=== PATIENT | female | born 1950 | race Caucasian/White ===

== ENCOUNTER → 2020-03-14 12:07 | Outpatient (CLI) | payer MEDICARE, SELFPAY ==
[2020-03-14 13:59] LABS: Coronavirus 19 IgG Antibody Negative (Negative); Coronavirus 19 IgM Antibody Negative (Negative)
== END ==
PROVIDERS: Visit Provider Internal Medicine Gastroenterology
DX: Z01.818 Encounter for other preprocedural examination (principal)
CPT/HCPCS: 36415; 86328

== ENCOUNTER 2020-03-15 09:17 | Day surgery (SDC) | payer MEDICARE, SELFPAY ==
[2020-03-12 13:18] VITALS: BMI 26.5
[2020-03-15] VITALS (7 sets, daily range): BP systolic 85–154; BP diastolic 49–104; PULSE 86–101; RESP 16–18; TEMP 36.1–36.6; O2SAT 92–97
--- NOTE | 2020-03-15 11:13 | HMH.ANESCL ---
[facility] Anesthesia Checklist - Patient Identification Patient Identification: Arm Band - Structural Data Admitted From: Home Planned Operative Procedure/s: colonoscopy Consent for Planned Operative Procedure(s) Verified: Yes Verified Documents: Surgical Consent, History and Physical - NPO Status Verified Time NPO: 00:00 - Additional verifications Anesthesia Reactions: No - Airway Assessment C-Spine Mobility Assessed: Yes (mp2) TMJ Mobility Assessed: Yes Dentition: Edentulous - Neurological Assessment Level of Consciousness: Awake, Alert - Anesthesia Plan Anesthesia Risk discussed: Yes Anesthesia Plan: Verified ASA Class: III Anesthesia Type: MAC [facility] History I have reviewed the patient's past medical history: Yes Medical History: Reports:: Cancer (skin), Congestive Heart Failure, Hypertension, Lung Disease (johnny) Denies:: Diabetes Mellitus Type 1, Diabetes Mellitus Type 2, Internal Pacemaker, MRSA, Seizures *Have you ever received a pneumonia vaccine?: Yes *Have you received a flu vaccine this season?: Yes Anesthesia experience/problems:: nac Laterality Cases: Bilateral: Tonsillectomy Other Surgeries: Yes: Cholecystectomy, , Hysterectomy-Total, Thyroidectomy. No: Pacemaker Amputation: No Fractures: Yes - *Social History Last grade of school completed: Advanced degree Smoking Status: Current every day smoker Tobacco Type: cigarettes # Packs/Day (cigarettes): 1 Alcohol Intake: never Substance Use Type: denies use *Occupational Status:: disabled Housing: house Household Members: family *Travel in the last 8 weeks: None Family Hx:: No significant family history
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
== END 2020-03-15 12:50 | disposition home or self-care (01) ==
LOC: OUTP 09:21
PROVIDERS: PCP Family Medicine; Visit Provider Internal Medicine Gastroenterology
PROC: 0DJD8ZZ Inspection of Lower Intestinal Tract, Via Natural or Artificial Opening Endoscopic (ICD-10-PCS; CPT 45378; principal; 2020-03-15 10:30)
DX: Z12.11 Encounter for screening for malignant neoplasm of colon (principal); K63.5 Polyp of colon; K57.30 Diverticulosis of large intestine without perforation or abscess without bleeding; K64.0 First degree hemorrhoids; Z83.71 Family history of colonic polyps; Z85.828 Personal history of other malignant neoplasm of skin; I11.0 Hypertensive heart disease with heart failure; G47.33 Obstructive sleep apnea (adult) (pediatric); Z90.710 Acquired absence of both cervix and uterus; E89.0 Postprocedural hypothyroidism; Z90.49 Acquired absence of other specified parts of digestive tract; Z72.0 Tobacco use
CPT/HCPCS: 45385; 88305

== ENCOUNTER → 2021-04-11 06:44 | Outpatient (CLI) | payer MEDICARE, SELFPAY ==
--- NOTE | 2021-04-11 06:46 | CA_ITS ---
APPROVED REPORT EXAM: Comprehensive 2D, Doppler, and color-flow Echocardiogram Restaurant Inspector: Donna Greene RT(R) Ht: 5 ft 10 in Wt: 170lbs BSA: 1.95 BP: 191/85 mmHg Indications: CP, JEFFREY, HTN, HLD, smoker, SOB, pul HTN 2D Dimensions LVOT 2.07 cm (M/F) 1.5-2.5 LVEF (Trotter's) 60.20 % F: 54 - 74 LV Volume 97.90 mL F: 46 - 106 LV Volume Index 50.46 mL/m2 F: 29 - 61 LA Volume 59.80 mL LA Volume Index 30.82 mL/m2 (M/F) 16-34 M-Mode Dimensions RVDd 2.42 cm (0.9-2.6) LA Diam 4.15 cm (1.9-4.0) LVDd 3.18 cm (3.5-5.7) Ao Diam 3.35 cm (2.0-3.7) LVDs 2.34 cm (3.5-5.7) IVSd 1.02 cm (0.6-1.1) PWd 0.72 cm (0.6-1.1) EF (Teich) 53.10% FS 26.40% EDV (Teich) 40.30 mL ESV (Teich) 18.90 mL LV Diastology E Decel Time 277.00 (160-240 msec) E/A Ratio 0.9 MED E' 12.40 (< 7 cm/sec) E'/MED E' Ratio 7.94 (>14) LAT E' 10.90 (<10 cm/sec) E/LAT E' Ratio 9.03 (>14) Mitral Valve MV E Max Hammad. 98.00 (40-130 cm/s) MV A Velocity 106.00 (40-130 cm/s) E/A Ratio 0.93 MV Decel. Time 277.00 (160-240 ms) MV PHT 81.00 ms Tricuspid Valve TR P. Velocity 318.00 cm/s RAP Estimate 10.00 mmHg RVSP 50.50 mmHg Left Ventricle Left atrium is mildly enlarged, left ventricle is normal size, mild concentric left ventricular hypertrophy, visually estimated ejection fraction 55% with no regional wall motion abnormality, diastolic parameters are inconclusive. Right Ventricle Right atrium and right ventricle mildly enlarged with normal contractility. Aortic Valve Aortic valve is minimally thickened and fibrosed, there is no aortic stenosis or aortic insufficiency. Mitral Valve Mitral valve is grossly normal, there is mild mitral regurgitation. Tricuspid Valve Tricuspid valve grossly normal, there is mild tricuspid regurgitation noted, calculated right ventricular systolic pressure is 50 mmHg. Pulmonic Valve Pulmonic valve is poorly visualized. Great Vessels Aortic root is normal size. Pericardium No significant pericardial effusion noted. Conclusion 1. Biatrial enlargement, normal left ventricular size, mild concentric left ventricular hypertrophy, visually estimated ejection fraction 55% with no regional wall motion abnormality, diastolic parameters are inconclusive. 2. Mildly enlarged right ventricle with normal contractility. 3. Mild mitral and tricuspid regurgitation, calculated right ventricular systolic pressure is 50 mmHg. 4. No significant pericardial effusion noted. Electronically signed by : Leonidas Hester MD 04/11/2021 14:15:03
--- NOTE | 2021-04-11 06:46 | CA_ITS ---
APPROVED REPORT Exam: Pharmacologic Technologist: Emily Carballo, Ht: 5 ft 10 in Wt: 171 lbs BSA: 1.95 m2 HR: 84 bpm BP: 182/69 mmHg Rhythm: SINUS LVH Medical History Medical History: HTN, Hyperlipidemia Medications: Gabapentin,,,,, Robaxin,,,,, Diazepam,,,,, Lasix,,,,, Zocor,,,,, Zolpidem,,,,, FeNTANYL,,,,, OxYCODONE,,,,, DOxepin,,,,, Singulair,,,,, Fluoxetine,,,,, Zrytec,,,,, Allergies: TETRACYCLINE Cardiac Risk Factors: HTN, Hyperlipidemia, FHX of CAD Stress Test Details Test: LEXISCAN HR Resting HR: 64 bpm Max Heart Rate (APMHR): 151.954267 bpm Max HR Achieved: 98 bpm Target HR (85% APMHR): 128.433465 bpm % of APMHR: 64.90 Recovery HR: 75 bpm BP Resting BP: 201.0/78.0 mmHg Max BP: 201.0/78.0 mmHg Recovery BP: 161.0/68.0 mmHg ECG Resting ECG: SINUS RHYTHM/LVH Clinical Reason for Termination: Completed Protocol Exercise duration: 04:01 min Highest Stage Achieved: Stress ECG Conclusion DURING INFUSION PATIENT HAD NO SYMPTOMS. OCCASIONAL PVC'S. <1.5MM ST SEGMENT CHANGES. NON-DIAGNOSTIC STRESS Electronically signed by : Leonidas Hester MD 04/11/2021 14:19:20
--- NOTE | 2021-04-11 06:46 | NM_ITS ---
APPROVED REPORT Exam: Nuclear Stress Test Indication: HTN, HYPERLIPIDEMIA, TOB USE, FM HX, C.P., SOB, PALPITATIONS Patient Location: Outpatient Stress Tech: Yadi Carballo NM Tech:Amy Burgos KIERAN RT(R)(N) Ht: 5 ft 10 in Wt: 175 lbs Bra Size: 40F HR: 75 bpm BP: 201/78 mmHg BSA: 1.97 m2 BMI: 25.1 Procedure: Patient received a 0.4 mg of intravenous Lexiscan, resting heart rate 75 bpm, resting blood pressure 201/78 mmHg, with Lexiscan maximum heart rate achived was 84 bpm which is Less than 85 % of the maximum predicted heart rate and blood pressure was 182/69 mmHg. With Lexiscan, patient denied any complaint of chest pain. Electrocardiogram Resting electrocardiogram showed sinus rhythm, with Lexiscan there is less than 1.[address] segment depression noted from the baseline EKG. The EKG portion of the Lexiscan is nondiagnostic. Cardiac Stress and Resting SPECT Images: Cardiac Stress and Resting SPECT images were obtained using technetium 99m Myoview 29.8 mCi stress and 10.52 mCi at rest. Gated SPECT for analysis of segmental wall motion and calculation of the ejection fraction also done. Prone images were also obtained. Cardiac stress and resting SPECT images show uniform myocardial activity without segmental perfusion abnormality, compared to the ejection fraction is 60% with no regional wall motion abnormality, right ventricle is normal size and contractility. Conclusion: 1. The EKG portion of the Lexiscan is nondiagnostic. 2. No scintigraphic evidence of reversible ischemia seen, compared to the ejection fraction is 60% with no regional wall motion abnormality, right ventricle is normal size and contractility. 3. Normal Lexiscan Myoview study. Electronically signed by : Leonidas Hester MD 04/11/2021 14:22:09
--- NOTE | 2021-04-11 06:46 | CA_ITS ---
APPROVED REPORT Supervisor Body Assembly: ANGÉLICA Laterality: Bilateral Study Quality: Good Indications: DARYL, Bruits, Chest pain, SOA Risk Factors Hypertension: Hyperlipidemia Smoking Doppler Spectral Velocity Analysis ECA (R) 87.60/8.70 cm/s ECA (L) 95.10/14.60 cm/s dICA (R) 128.20/30.60 cm/s dICA (L) 164.70/44.90 cm/s Ciera (R) 206.70/53.00 cm/s Ciera (L) 146.50/46.00 cm/s pICA (R) 290.90/51.30 cm/s pICA (L) 108.80/34.30 cm/s dCCA (R) 67.70/14.60 cm/s dCCA (L) 99.40/20.60 cm/s pCCA (R) 112.30/16.00 cm/s pCCA (L) 136.40/20.00 cm/s Vert (R) 124.60/23.50 cm/s Vert (L) 104.60/0.00 cm/s ICA/CCA 4.30 ICA/CCA 1.66 Findings Duplex evaluation demonstrates stenosis of the right proximal internal carotid artery in the range of 70-99%. Duplex evaluation demonstrates stenosis of the left proximal internal carotid artery in the range of 20-49%. B-Mode Ultrasound demonstrates significant intraluminal plaque in the right internal carotid artery. Duplex evaluation demonstrates antegrade flow of the right vertebral artery. Duplex evaluation demonstrates abnormal waveforms of the left vertebral artery, question subclavian steal. Conclusion Duplex evaluation demonstrates stenosis of the right proximal internal carotid artery in the range of 70-99%. Duplex evaluation demonstrates stenosis of the left proximal internal carotid artery in the range of 20-49%. B-Mode Ultrasound demonstrates significant intraluminal plaque in the right internal carotid artery. Duplex evaluation demonstrates antegrade flow of the right vertebral artery. Duplex evaluation demonstrates abnormal waveforms of the left vertebral artery, question subclavian steal. Critical Notification Physician Notified Date: 04/11/2021 Time: 11:15 Physician Name: Eddie Whitney Electronically signed by : Dwight Chatterjee MD 04/11/2021 15:59:24
== END ==
PROVIDERS: PCP Family Medicine; Visit Provider Urology
DX: R06.00 Dyspnea, unspecified (principal); I65.23 Occlusion and stenosis of bilateral carotid arteries
CPT/HCPCS: 78452; 93017; 93306; 93880; A9502; J2785

== ENCOUNTER → 2021-05-16 09:38 | Outpatient (CLI) | payer MEDICARE, SELFPAY ==
--- NOTE | 2021-05-16 10:07 | CT_ITS ---
PROCEDURE INFORMATION: Exam: CT Angiography Head With Contrast, Arteriography Exam date and time: 05/16/2021 10:07 AM Age: 71 years old Clinical indication: Condition or disease; Other: Carotid stenosis; Additional info: Amber stenosis of 70-99% on u/s TECHNIQUE: Imaging protocol: Computed tomography angiography of the head with contrast. Exam focused on the arteries. 3D rendering (Not supervised by radiologist): MIP and/or 3D reconstructed images were created and reviewed. COMPARISON: US CA CAROTID DUPLEX BI 04/11/2021 10:29 AM FINDINGS: ANTERIOR CIRCULATION: Right internal carotid artery: Multiple small calcified plaques in the internal carotid artery siphon. Stenosis estimated less than 50%. Intracranial segment is patent with no high-grade stenosis. No aneurysm. Right middle cerebral artery: Unremarkable. No occlusion or significant stenosis. No aneurysm. Right anterior cerebral artery: Unremarkable. No occlusion or significant stenosis. No aneurysm. Left internal carotid artery: Multiple small calcified plaques in the internal carotid artery siphon. Stenosis estimated less than 50%. Intracranial segment is patent with no high-grade stenosis. No aneurysm. Left middle cerebral artery: Unremarkable. No occlusion or significant stenosis. No aneurysm. Left anterior cerebral artery: Unremarkable. No occlusion or significant stenosis. No aneurysm. POSTERIOR CIRCULATION: Right vertebral artery: Unremarkable. No occlusion or significant stenosis. No aneurysm. Left vertebral artery: Mild calcified plaque series 2, image 335. Also seen on MIP sagittal series 601, images 63-64. Stenosis estimated less than 50% . No occlusion in the intracranial portion. No aneurysm. Basilar artery: Unremarkable. No occlusion or significant stenosis. No aneurysm. Right posterior cerebral artery: Unremarkable. No occlusion or significant stenosis. No aneurysm. Patent right posterior communicating artery. Left posterior cerebral artery: Unremarkable. No occlusion or significant stenosis. No aneurysm. Patent left posterior communicating artery. Veins: Patent enhancing venous sinuses, including superior sagittal sinus, straight sinus, sigmoid and transverse sinuses. Brain: No definite mass, mass effect, or midline shift. There is mild to moderate generalized cerebral atrophy. Falcine calcifications. Cerebral ventricles: The ventricles are normal for age. No hydrocephalus. Bones/joints: No acute skull fracture. No lytic lesions. Soft tissues: There are no soft tissue masses or fluid collections. Paranasal sinuses: Partial opacification of anterior and middle left ethmoid air cells, which could be thickened mucosa or due to underlying polyps or mucous retention cysts. A 1.4 cm polyp or mucous retention cyst in the anterior left sphenoid sinus. Some secretions at the inferior left frontal sinus. No acute air-fluid levels, as visualized. IMPRESSION: 1. No high-grade stenosis or occlusion in the large vessels of the [id number]. 2. Calcified plaques with mild stenosis less than 50% in the left vertebral artery, and of right and left internal carotid artery siphons. 3. Senescent changes, as above. 4. Chronic sinus disease. PROCEDURE INFORMATION: Exam: CT Angiography Neck With Contrast Exam date and time: 05/16/2021 10:07 AM Age: 71 years old Clinical indication: Condition or disease; Other: Carotid stenosis; Additional info: Amber stenosis of 70-99% on u/s TECHNIQUE: Imaging protocol: Computed tomography angiography of the neck with contrast. 3D rendering (Not supervised by radiologist): MIP and/or 3D
[2021-05-16 11:07] LABS: Anion Gap 10.7 mEq/L (5-15); Blood Urea Nitrogen 14 mg/dl (7-17); Calcium 9.1 mg/dl (8.4-10.2); Carbon Dioxide 30 mmol/L (22.0-30.0); Chloride 102 mmol/L (98-107); Estimated Glomerular Filt Rate 83 ml/min (>60); GFR (African American) 100 ML/MIN (>60); Glucose 91 mg/dl (74-100); Potassium 4.7 mmoL/L (3.5-5.1); Sodium 138 mmol/L (136-145)
== END ==
PROVIDERS: PCP Family Medicine; Visit Provider Physician Assistant
DX: I25.10 Atherosclerotic heart disease of native coronary artery without angina pectoris (principal); I27.20 Pulmonary hypertension, unspecified; R07.9 Chest pain, unspecified; I65.23 Occlusion and stenosis of bilateral carotid arteries; F17.210 Nicotine dependence, cigarettes, uncomplicated
CPT/HCPCS: 36415; 70498; 80048; Q9967

== ENCOUNTER → 2021-06-05 08:53 | Outpatient (CLI) | payer MEDICARE, SELFPAY ==
[2021-06-05 08:57] LABS: Coronavirus 19, PCR Not Detected (NotDetected); Influenza A, PCR Not Detected (NotDetected); Influenza B, PCR Not Detected (NotDetected)
[2021-06-05 09:42] LABS: Basophils # 0.1 K/mm3 (0-0.2); Basophils % 0.7 % (0.1-2.0); Eosinophils # 0.3 K/mm3 (0.0-0.4); Eosinophils % 3.8 % (0.1-12.0); Hematocrit 40.7 % (37.0-47.0); Hemoglobin 12.9 g/dL (12.2-16.2); Lymphocytes # 1.7 K/mm3 (0.7-4.5); Mean Corpuscular HGB Conc 31.8 g/dL (31.8-35.4); Mean Corpuscular Hemoglobin 27.2 pg (27.0-31.2); Mean Corpuscular Volume 85.6 fl (81-99); Mean Platelet Volume 8.1 fl (7.4-10.4); Monocytes # 0.4 K/mm3 (0.1-1.0); Monocytes % 4.9 % (1.7-9.3); Neutrophils % 70.6 % (37.0-80.0); Platelet Count 338 K/mm3 (142-424); Red Blood Count 4.75 M/mm3 (4.20-5.40); Red Cell Distribution Width 13.8 % (11.5-17.5); White Blood Count 8.5 K/mm3 (4.8-10.8)
[2021-06-05 10:19] LABS: Chloride 106 mmol/L (98-107); Sodium 143 mmol/L (136-145)
[2021-06-05 10:20] LABS: Potassium 4.9 mmoL/L (3.5-5.1)
[2021-06-05 10:22] LABS: Blood Urea Nitrogen 11 mg/dl (7-17); Estimated Glomerular Filt Rate 99 ml/min (>60); GFR (African American) 120 ML/MIN (>60)
[2021-06-05 10:23] LABS: Anion Gap 10.9 mEq/L (5-15); Calcium 9.7 mg/dl (8.4-10.2); Carbon Dioxide 31 mmol/L (22.0-30.0); Glucose 101 mg/dl (74-100)
== END ==
PROVIDERS: Internal Medicine; Visit Provider Urology
DX: I25.10 Atherosclerotic heart disease of native coronary artery without angina pectoris (principal); I27.20 Pulmonary hypertension, unspecified; I65.29 Occlusion and stenosis of unspecified carotid artery; R07.9 Chest pain, unspecified
CPT/HCPCS: 36415; 80048; 85025; C9803; U0003; U0005

== ENCOUNTER 2021-06-05 09:10 | Day surgery (SDC) | payer MEDICARE, SELFPAY ==
[2021-06-05] VITALS (11 sets, daily range): BP systolic 162–197; BP diastolic 71–102; PULSE 55–79; RESP 15–20; TEMP 36.6; O2SAT 90–100; BMI 24.7
--- NOTE | 2021-06-05 07:21 | IR_ITS ---
APPROVED REPORT Patient Location: Outpatient PROCEDURES Right femoral arterial access Catheter placement in the right vertebral artery Right vertebral artery selective angiogram Indirect right common carotid artery angiogram Catheter placed in the left subclavian artery Left subclavian artery angiogram Bare-metal stent deployment to the left subclavian artery INDICATION Left subclavian artery stenosis, Subclavian steal phenomena, Bilateral carotid artery stenosis Informed consent was obtained prior to the procedure. COMPLICATIONS None Estimated Blood Loss: less than 10ml TECHNIQUE 1% lidocaine used anesthetize the right groin the right femoral artery was accessed via Salinger technique and a 5 Romansh sheath was placed in the right femoral artery. A JR4 catheter was used to selectively intubate the right vertebral artery and perform angiography. The JR4 catheter cannot easily cannulate the right common carotid artery therefore indirect angiography was performed. At this point the catheter was then placed in the left subclavian artery where angiography was performed and showed a severe high-grade calcified ostial stenosis. Therapeutic heparin was administered and a long advantage wire was placed distally in the vessel. The sheath was exchanged for a long 7 Romansh destination sheath. An 8 mm balloon cannot be advanced for predilatation. A 6 mm balloon was then advanced and deployed in the ostial segment. Following this an 8 mm x 20 mm balloon was then deployed at 14 larissa to also reduce the stenosis. Despite this there is still dense calcification in the sheath cannot be advanced. An 8 mm x 17 mm balloon mounted stent was then advanced into the ostial segment. A portion of the stent latched onto the calcified edges and could neither be advanced nor retrieved. The balloon was retrieved however the stent remained lodged into the calcified left subclavian artery. A 5 mm x 40 mm balloon was then advanced up the wire into the proximal and distal portion of the stent and deployed at 14 larissa. Following this an additional 8 mm x 17 mm balloon mounted stent was placed distal to the first stent and deployed at 14 larissa. Repeat angiography still demonstrated there was a residual stenosis therefore an 8 mm x 27 mm bare-metal stent was then placed slightly distal to this overlapping the first 2 stents and then deployed at 14 larissa. You 10 mm x 20 mm balloon was then deployed at 14 larissa in the ostial segment which flared the stent. There was excellent angiographic results with wide patency and antegrade flow down the left subclavian artery at the end of the procedure. At the end of procedure the apparatus was removed the groin was reprepped closure change at this move hemostasis achieved using Perclose device patient transferred the postop already in stable condition ANGIOGRAPHIC RESULTS The right vertebral artery singular and supplies a large basilar artery The right common carotid artery is widely patent and supplies a calcified right internal carotid artery and right external carotid artery The internal carotid artery stenosis cannot be accurately estimated The left common carotid artery is widely patent however stenosis severity cannot be assessed The left subclavian artery has an ostial calcified 90% stenosis IMPRESSION Patent right vertebral artery Patent common carotid arteries with angiographically indeterminate bilateral internal carotid artery calcification and stenoses Severe left subclavian artery stenosis Successful stenting of the left subclavian artery severe disease reduced to 0% with 3 bare-metal stents as described above thereby providing excellent antegrade flow down the left subclavian ar
[2021-06-05 15:35] LABS: CATHL Activated Clotting Time 256 SEC (74-125)
--- NOTE | 2021-06-05 16:26 | HMH.PHACLD ---
Pretty Leblanc has received discharge medication counseling on the following medications: MD IS ADDING PLAVIX 75 MG DAILY TO PATIENT'S ASPIRIN 81 MG DAILY AND CRESTOR 20 MG HS.
== END 2021-06-05 16:26 | disposition home or self-care (01) ==
LOC: CATHLAB 09:14
PROVIDERS: PCP Family Medicine; Visit Provider Internal Medicine
DX: I25.10 Atherosclerotic heart disease of native coronary artery without angina pectoris (principal); I27.20 Pulmonary hypertension, unspecified; R07.9 Chest pain, unspecified; I77.1 Stricture of artery; Z20.822 Contact with and (suspected) exposure to COVID-19; I65.01 Occlusion and stenosis of right vertebral artery; I11.0 Hypertensive heart disease with heart failure; I50.9 Heart failure, unspecified; Z79.899 Other long term (current) drug therapy; Z79.01 Long term (current) use of anticoagulants; Z79.02 Long term (current) use of antithrombotics/antiplatelets; F17.210 Nicotine dependence, cigarettes, uncomplicated
CPT/HCPCS: 36222; 36226; 36415; 37236; 80048; 85025; 85347; 99152; 99153; C1725; C1760; C1769; C1876; C1894; C9803; J1644; J2405; Q9966; U0003; U0005

== ENCOUNTER → 2021-06-12 11:56 | Outpatient (CLI) | payer MEDICARE, SELFPAY ==
--- NOTE | 2021-06-12 11:57 | CA_ITS ---
APPROVED REPORT Laterality: Unilateral left Lumber Stacker Driver: Carina Blackman RVT Indications Current Smoker Risk Factors Yrs Smoking: Comments PT HAD ANGIO 06/05/21 TO ASSESS SUBCLAVIAN STENOSIS ON LEFT, PT FELL SEVERAL DAYS AGO NOW HAS BRUISING LUE AND KNOT IN THE AXILLA, ASSESS SUBCLAVIAN ARTERY LT Findings Study suggests no evidence of pseudoaneursym or AV fistula of the left subclavian artery. There is a 0.9 X 0.9 cm cystic lesion seen in the area of patients knot left axilla. Conclusion Study suggests no evidence of pseudoaneursym or AV fistula of the left subclavian artery. There is a 0.9 X 0.9 cm cystic lesion seen in the area of patients knot left axilla. Electronically signed by : Dwight Chatterjee MD 06/17/2021 08:46:50
== END ==
PROVIDERS: PCP Family Medicine; Visit Provider Nurse Practitioner Family
DX: I74.2 Embolism and thrombosis of arteries of the upper extremities (principal); M79.602 Pain in left arm; S40.022A Contusion of left upper arm, initial encounter
CPT/HCPCS: 93931

== ENCOUNTER → 2022-03-30 07:34 | Outpatient (CLI) | payer MEDICARE, SELFPAY ==
--- NOTE | 2022-03-30 07:40 | CA_ITS ---
FINAL REPORT TECHNIQUE: Grayscale, color Doppler and duplex Doppler ultrasound of the kidneys, aorta and renal arteries was performed. Multiple velocities were measured. CLINICAL HISTORY: HTN,SMOKER FINDINGS: Aorta velocity: 155.6 cm/sec Right kidney: 10.4 cm. No evidence of hydronephrosis or mass. Right intrarenal RI: 0.5-0.7 Right renal artery velocity: 147.6 cm/sec. Right RAR (Renal artery-Aortic Ratio): 0.95 Left Kidney: 10.3 cm. No evidence of hydronephrosis or mass. Left intrarenal RI: 0.6-0.8 Left renal artery velocity: 205.3 cm/sec. Left RAR (Renal Artery-Aortic Ratio): 1.32 IMPRESSION: No evidence of significant right renal artery stenosis. Elevated peak systolic velocity the left renal artery with normal ratio. This correlates to less than 60% stenosis. CT angiogram or postcontrast MR angiogram would be more sensitive for evaluation of possible renal artery stenosis. Reviewed, Interpreted and Dictated by Elizabeth Carr MD Transcribed by Lena Yan Authenticated and [facility]
== END ==
PROVIDERS: PCP Family Medicine; Visit Provider Nurse Practitioner
DX: I10 Essential (primary) hypertension (principal)
CPT/HCPCS: 93976

== ENCOUNTER → 2022-05-05 11:38 | Outpatient (CLI) | payer MEDICARE, SELFPAY ==
[2022-05-05 15:15] LABS: Anion Gap 9.7 mEq/L (5-15); Blood Urea Nitrogen 16 mg/dl (7-17); Carbon Dioxide 32 mmol/L (22.0-30.0); Chloride 105 mmol/L (98-107); Estimated Glomerular Filt Rate 71 ml/min (>60); GFR (African American) 86 ML/MIN (>60); Glucose 113 mg/dl (74-100); Potassium 5.7 mmoL/L (3.5-5.1); Sodium 141 mmol/L (136-145)
== END ==
PROVIDERS: Visit Provider Physician Assistant
DX: E78.5 Hyperlipidemia, unspecified (principal); I10 Essential (primary) hypertension; I25.10 Atherosclerotic heart disease of native coronary artery without angina pectoris; I27.20 Pulmonary hypertension, unspecified; I65.29 Occlusion and stenosis of unspecified carotid artery
CPT/HCPCS: 36415; 80048

== ENCOUNTER → 2022-05-05 14:08 | Outpatient (CLI) | payer MEDICARE, SELFPAY ==
--- NOTE | 2022-05-05 16:25 | CT_ITS ---
FINAL REPORT TECHNIQUE: Pre-and postcontrast images of the abdomen were performed by computed tomography. Extensive 3-D reconstruction images were performed. A CTA was performed. This study was performed with techniques to keep radiation doses as low as reasonably achievable (ALARA). Individualized dose reduction techniques using automated exposure control or adjustment of mA and/or kV according to the patient''s size were employed. CLINICAL HISTORY: HTN FINDINGS: ABDOMEN: There is a small left pleural effusion. There is mild left base atelectasis or scar. Precontrast images demonstrate no evidence of nephrolithiasis. No adrenal masses are identified. The liver, spleen and pancreas are unremarkable. The patient is status post cholecystectomy. There is mild biliary ductal dilatation, may represent post cholecystectomy change. CTA: Moderate to large amount of vascular calcification makes evaluation more difficult. There is no evidence of aneurysm or dissection. The proximal celiac axis is normal. Calcification obscures the proximal SMA but there is probable moderate stenosis. There is calcified plaque at the origin of the renal arteries. There is probable [id number] stenosis at the origins of both renal arteries involving less than 50%. The SHRADDHA is patent. The iliac arteries showed no evidence of significant stenosis or occlusion. The patient is status post hysterectomy. There are multiple sigmoid diverticula. IMPRESSION: Probable [id number] stenosis at the origin of both renal arteries involving less than 50%. Probable moderate stenosis of the proximal SMA. Reviewed, Interpreted and Dictated by Carlton Wheeler III, MD Transcribed by Aileen Redd Authenticated and [facility]
== END ==
PROVIDERS: PCP Family Medicine; Visit Provider Physician Assistant
DX: R06.02 Shortness of breath (principal); I25.10 Atherosclerotic heart disease of native coronary artery without angina pectoris; I27.20 Pulmonary hypertension, unspecified; I10 Essential (primary) hypertension; E78.2 Mixed hyperlipidemia; I65.23 Occlusion and stenosis of bilateral carotid arteries
CPT/HCPCS: 74174; Q9967

== ENCOUNTER → 2022-05-19 13:40 | Outpatient (CLI) | payer MEDICARE, SELFPAY | LOC: LAB 05-22 13:42 → LAB.DROPOF 05-22 13:48 | PROVIDERS: Visit Provider Physician Assistant | DX: I10 Essential (primary) hypertension (principal) ==

== ENCOUNTER 2022-06-15 08:25 | Day surgery (SDC) | payer MEDICARE, SELFPAY ==
[2022-06-15] VITALS (17 sets, daily range): BP systolic 138–183; BP diastolic 73–96; PULSE 54–74; RESP 16–18; O2SAT 95–100; BMI 24.8
--- NOTE | 2022-06-15 07:04 | IR_ITS ---
APPROVED REPORT Patient Location: Outpatient [facility] Set Up Operator: KIERAN Hernandez RT (R) PROCEDURES Bilateral selective renal angiography INDICATION Renovascular hypertension, Abnormal renal CTA Informed consent was obtained prior to the procedure. COMPLICATIONS none Estimated Blood Loss: less than 10 ml TECHNIQUE 1% lidocaine used to anesthetize the right femoral groin. The right femoral artery was accessed via the Seldinger technique. A 4 Malay sheath was placed in the right femoral artery. The JR4 catheter was used to selectively intubate each renal artery. At the end of the diagnostic angiogram the patient was transferred to the postop holding area in stable condition for sheath removal. ANGIOGRAPHIC RESULTS Right renal artery singular and has an ostial proximal 20% stenosis Left renal artery has a dual arterial supply the superior branch which supplies 80% of the kidney has an eccentric 10 to 20% stenosis while the inferior branch is widely patent IMPRESSION Nonflow limiting renal artery stenosis as described above PLAN 1. Continue treatment of essential hypertension accompanied by risk factor modification for atherosclerotic disease Electronically signed by : Brain Baxter MD 06/15/2022 10:52:24
[2022-06-15 09:20] LABS: Basophils # 0.1 K/mm3 (0-0.2); Basophils % 1.2 % (0.1-2.0); Eosinophils # 0.3 K/mm3 (0.0-0.4); Eosinophils % 3.1 % (0.1-12.0); Hematocrit 33.9 % (37.0-47.0); Hemoglobin 11.1 g/dL (12.2-16.2); Lymphocytes # 1.2 K/mm3 (0.7-4.5); Lymphocytes % 13.6 % (10-50); Mean Corpuscular HGB Conc 32.7 g/dL (31.8-35.4); Mean Corpuscular Hemoglobin 26.2 pg (27.0-31.2); Mean Corpuscular Volume 80.2 fl (81-99); Mean Platelet Volume 7.6 fl (7.4-10.4); Monocytes # 0.5 K/mm3 (0.1-1.0); Monocytes % 5.3 % (1.7-9.3); Neutrophils # 6.6 K/mm3 (1.8-7.8); Neutrophils % 76.8 % (37.0-80.0); Platelet Count 331 K/mm3 (142-424); Red Blood Count 4.22 M/mm3 (4.20-5.40); Red Cell Distribution Width 14.9 % (11.5-17.5); White Blood Count 8.5 K/mm3 (4.8-10.8)
[2022-06-15 09:30] LABS: Anion Gap 10.1 mEq/L (5-15); Blood Urea Nitrogen 17 mg/dl (7-17); Carbon Dioxide 30 mmol/L (22.0-30.0); Chloride 106 mmol/L (98-107); Creatinine Clearance Estimated 64 mL/min (50-200); Estimated Glomerular Filt Rate 71 ml/min (>60); GFR (African American) 86 ML/MIN (>60); Glucose 98 mg/dl (74-100); Potassium 5.1 mmoL/L (3.5-5.1); Sodium 141 mmol/L (136-145)
== END 2022-06-15 13:26 | disposition home or self-care (01) ==
PROVIDERS: PCP Family Medicine; Visit Provider Internal Medicine
DX: I10 Essential (primary) hypertension (principal); I27.20 Pulmonary hypertension, unspecified; I65.23 Occlusion and stenosis of bilateral carotid arteries; I70.1 Atherosclerosis of renal artery; I73.9 Peripheral vascular disease, unspecified; Z79.899 Other long term (current) drug therapy; Z79.01 Long term (current) use of anticoagulants; I77.1 Stricture of artery
CPT/HCPCS: 36252; 80048; 85025; 99152; C1725; C1769; J1644; Q9967

== ENCOUNTER → 2022-07-20 12:56 | Outpatient (POV) | payer MEDICARE, SELFPAY ==
[2022-07-20 13:23] VITALS: BP 118/79; PULSE 111; RESP 18; O2SAT 96; BMI 24.3
--- NOTE | 2022-07-20 16:22 | EXP.PAIN.OV ---
HPI Data of Consult Patient: new to practice Consult date: 07/20/22 Requesting Physician: Delia Mcfarland APRN Primary Care Provider: Noel Marquez Consult Narrative Reason for consult: back pain History of present illness: Ms. Leblanc is a 72 year old female who presents today as a new patient. She is a referral from [facility]. Today she rates her pain a 10 out of 10. She states the pain is throughout her back from her neck down and denies any new trauma or injury. Patient states this pain has been going on for years and progressively worsened over time. Patient does describe this as a aching, throbbing sensation that is worse with increased activity. Patient has been to 5 back specialist who would not do any surgery and deemed her an inappropriate candidate. Patient was previously going to Dr. Pearson for pain management however she states she was not happy with the care he provided. Patient states she did try injections and was down for 3 days following these due to significant migraines. Patient does state that her chronic pain causes significant decrease in function and inability to perform activities of daily living. Patient states she cannot tolerate prolonged sitting, or standing. Patient is in a motorized wheelchair. Patient states she has no quality of life and states she has been told she is got herniated and bulging disc as well as a fluid-filled cyst in her cervical spine. Patient states she has not had any imaging in years and was very emotional during her visit today. Patient states previously she was on Percocet 10 mg 4 times a day however the pain doctor did decrease these to twice a day. Patient states she was also prescribed methocarbamol 750 mg every 8 hours as needed. Patient was also given fentanyl patches however she stated that he discontinued these and she has not had them in the last month or 2. Patient does states she has a cardiac history with stents placed around [address] Baxter. Patient was also previously prescribed gabapentin 600 mg twice a day from Dr. Pearson. Patient denies any side effects from these medications. She states these medications did help manage her pain symptoms. Patient also uses [place] balm topical to provide some relief of her symptoms as well as a heating pad. Patient states she has been to physical therapy in the past however she was unable to complete due to worsening pain and concerns of paralyzation. Her [place] is [id number]. It has been reviewed and appropriate. CC: Delia Mcfarland APRN [facility] Medical History (Updated 07/20/22 @ 16:31 by Delia Mcfarland APRN) Chronic back pain Dyspnea HTN (hypertension) PAD (peripheral artery disease) JACOBO (renal artery stenosis) Social History (Updated 07/20/22 @ 13:34 by Cherelle Siegel RN) Smoking Status: Current every day smoker tobacco type: cigarettes packs per day: 1 alcohol intake: never substance use type: denies use current occupational status: disabled Travel in the last 8 weeks: None household members: family housing: house current occupational exposures/hazards: No caffeine: Yes Review of Systems Review of Systems Review of systems:: pertinent systems reviewed and negative unless documented below Review of systems (narrative): Review of Systems: General: No recent weight changes, no fever, no sleep disturbances Respiratory: No cough, no shortness of air, no recurring pulmonary infections Cardiovascular/peripheral vascular: No chest pain, no palpitations, no edema, no shortness of breath Gastrointestinal: No new onset incontinence, normal bowel movements reported Genitourinary: No new onset incontinence Musculoskeletal: Neck pain, mid/low back pain Psychiatric: [Normal mood/affect] Neurological: [Denies weakness in extremities], [denies balance issues] Meds Home Medications and Allergies Home Medications Medication Instructions Recorded Confirmed Type doxepin 150 mg capsule 150 mg
== END ==
PROVIDERS: PCP Family Medicine; Visit Provider Nurse Practitioner Family
DX: M51.36 Other intervertebral disc degeneration, lumbar region (principal); M50.30 Other cervical disc degeneration, unspecified cervical region; G89.29 Other chronic pain; Z72.0 Tobacco use
CPT/HCPCS: 99202; G0463

== ENCOUNTER → 2022-09-01 13:41 | Outpatient (POV) | payer MEDICARE, SELFPAY ==
[2022-09-01 14:26] VITALS: BP 148/72; PULSE 71; RESP 19; O2SAT 98; BMI 25.1
--- NOTE | 2022-09-01 16:30 | EXP.PAIN.SOA ---
[facility] Pain Management SOAP Note Subjective:: Patient is a pleasant 72-year-old female who presents today for follow-up. We are currently treating the patient for chronic back pain, neck pain, mid/low back pain, degenerative disc disease of cervical and lumbar spine with cervical and lumbar radiculopathy symptoms. Today the patient rates her pain a 7 out of 10. Patient denies any new trauma or injury. Patient denies any change location or type of pain she experiences. Patient states the pain is all in her from her neck down along with some radiating symptoms into her right arm and neuropathy in her legs. Patient does describe this as a aching, throbbing sensation that is worse with increased activity. Patient does have significant difficulty performing activities of daily living and cannot tolerate prolonged sitting, standing or walking. At our last visit patient was ordered imaging of her cervical and lumbar spine and she was able to complete these over at [facility]. Previously we did talk to her about being a potential candidate for a pain pump trial and a psychiatric evaluation was ordered. Patient states she has completed this with no problems however she is still reluctant regarding proceeding forward. Patient is in a motorized wheelchair. Patient states she continues to have no quality of life due to her chronic pain. Patient is prescribed Percocet 10 mg twice a day and gabapentin 600 mg twice a day from Dr. Pearson's office. Patient denies any side effects from this medication however she states this medication does not provide significant improvement. Patient states she has had multiple injections from his office however she has been displeased with her results. She states that she has had multiple migraines following her injections from him as well as not being adequately treated for her pain symptoms. Previously the patient states that she was on fentanyl patches however these were disc continued. Patient does have a cardiac history with st[place] [address] Baxter. Patient continues to use [place] balm topical and a heating pad with minimal improvement. Patient has been to physical therapy in the past however she was unable to complete due to her pain and concerns of paralyzation. Patient is also saw 5 different back specialist who stated that she was not an appropriate candidate for surgery. Her Everton is [id number]. Its been reviewed and appropriate. Review of Systems: General: No recent weight changes, no fever, no sleep disturbances Respiratory: No cough, no shortness of air, no recurring pulmonary infections Cardiovascular/peripheral vascular: No chest pain, no palpitations, no edema, no shortness of breath Gastrointestinal: No new onset incontinence, normal bowel movements reported Genitourinary: No new onset incontinence Musculoskeletal: Neck pain, low back pain, mid back pain Psychiatric: [Normal mood/affect] Neurological: [Denies weakness in extremities], [denies balance issues] Objective:: Physical Exam: General: Alert and oriented x3, no acute distress, pleasant and cooperative Lungs: Respirations even and unlabored, symmetrical chest expansion Eyes: PERRL Musculoskeletal: Flexion and extension of cervical, thoracic, lumbar [spine] somewhat guarded secondary to pain, [antalgic gait noted] Neurological: Speech clear, no gross sensory deficit [facility] 08/19/2022 MRI cervical spine without contrast Impression multilevel degenerative disc disease and spondylosis, overall worse since prior exam. 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 Worsening neuroforaminal narrowing at C6-7 [facility] 08/19/2022 MRI lumbar spine without contrast impression: Multilevel degenerative disc disease and spondylosis as described. [place]
== END | disposition home or self-care (01) ==
PROVIDERS: PCP Family Medicine; Visit Provider Nurse Practitioner Family
DX: M50.10 Cervical disc disorder with radiculopathy, unspecified cervical region (principal); M51.16 Intervertebral disc disorders with radiculopathy, lumbar region; G89.29 Other chronic pain
CPT/HCPCS: 99212; G0463

== ENCOUNTER 2022-09-25 07:52 | Day surgery (SDC) | payer MEDICARE, SELFPAY ==
[2022-09-25] VITALS (8 sets, daily range): BP systolic 116–170; BP diastolic 46–84; PULSE 60–69; RESP 18–20; TEMP 36.6; O2SAT 94–97; BMI 27.3
--- NOTE | 2022-09-25 12:39 | PC.NURSE ---
0930-pt returned to bay via motorized w/c. transferred to recliner independently. reports no pain. lumbar dressing c/d/i. VSS. no c/o or needs at this time 0945-pt resting in chair. VSS. no c/o pain. lumbar dressing c/d/i. daughter at bedside. pt provided po fluids. no needs or concerns at this time. 0950-Physical therapy at bedside for evaluation. 1000-pt resting in chair. VSS. no c/o pain. lumbar dressing c/d/i. daughter at bedside. no needs or concerns at this time. 1015--pt resting in chair. VSS. no c/o pain. lumbar dressing c/d/i. daughter at bedside. no needs or concerns at this time.
--- NOTE | 2022-09-25 13:10 | P.PCN_ITS ---
Procedure Date: 09/25/22 Time: 08:45 Anesthesiologist:: Tarun Lopez MD Complications:: None Pre-procedure Diagnosis:: Degenerative disc disease of lumbar spine with lumbar radiculopathy symptoms Post-procedure Diagnosis:: Same Indications for Procedure:: This patient is a pleasant 72-year-old white female who we are treating for low back pain with lumbar radiculopathy symptoms as well as neck pain with cervical radiculopathy symptoms. She has failed all previous conservative therapy inc luding injections, oral medications, physical therapy and she is not a surgical candidate. She has been off her blood thinner for 5 days. She has been off her Percocet for 48 hours. She presents for intrathecal pump trial today. She does have a successful psychological evaluation. Procedure Details:: Pain pump trial Informed consent was obtained and the risk and benefits of the procedure was explained to the patient. The patient was taken to the procedure room and placed prone on the procedure table. Patient was prepped and draped in sterile fashion. C-arm fluoroscopy was used to view the lumbar spine. The skin and subcutaneous tissues were anesthetized using lidocaine. I placed a 18-gauge spinal needle into the L4-5 interspace and advanced until clear CSF was obtained. After this intrathecal catheter was inserted and advanced very easily to the L1 vertebral body. The needle was withdrawn. We were able to freely withdraw clear CSF through the catheter. We then injected intrathecal fentanyl single shot bolus of 25 mcg followed by saline and followed by the previous CSF that was withdrawn. The needle and catheter were then removed and a Band-Aid was placed. Patient tolerated the procedure well with no complications. We reevaluated the patient after 30 minutes to 1 hour. She was also reassessed by physical therapy. Patient had 80 to 90% relief of her pain symptoms. She was much more functional. She was able to walk better and stand longer. This was a successful intrathecal pump trial. Patient was discharged home neurologic intact with good relief of pain symptoms. We will follow-up with her in 1 week to evaluate efficacy of the trial. However by all indications this is successful. We will plan on permanent placement with intrathecal morphine 1 mg/mL to start at 0.1 mg/day. Catheter tip will be at the T8 vertebral body. Plan and Disposition:: We will follow-up with her in 1 week. Will reevaluate symptoms at that time. I did tell her we will continue her Percocet 10 mg twice a day for 1 month. [place] and drug screen are all appropriate.
== END 2022-09-25 10:40 | disposition home or self-care (01) ==
PROVIDERS: PCP Family Medicine; Visit Provider Anesthesiology
DX: M51.16 Intervertebral disc disorders with radiculopathy, lumbar region (principal)
CPT/HCPCS: 62323; 96365

== ENCOUNTER 2022-10-30 06:26 | Day surgery (SDC) | payer MEDICARE, SELFPAY ==
[2022-10-30 06:51] VITALS: BP 145/72; PULSE 67; RESP 18; TEMP 36.8; O2SAT 95; BMI 26.6
--- NOTE | 2022-10-30 07:22 | P.PN_ITS ---
[facility] Disclaimer: The information contained in this section may have been updated after the patient was seen, as this information can be updated by other users. Medical History Chronic back pain Dyspnea HTN (hypertension) PAD (peripheral artery disease) JACOBO (renal artery stenosis) Surgical History History of section History of cholecystectomy History of hysterectomy History of knee replacement Family History Other Family history of TIAs Family history of cancer Family history of myocardial infarction Social History Smoking Status: Current every day smoker tobacco type: cigarettes packs per day: 1 alcohol intake: never substance use type: denies use current occupational status: disabled Travel in the last 8 weeks: None household members: family housing: house marital status: education level: high school current occupational exposures/hazards: No caffeine: Yes special vanessa needs: No agree to transfusion: No do you feel safe at home: Yes victim of physical abuse: No victim of emotional abuse: No victim of sexual abuse: No would you like helpful sources: No [facility] Anesthesia Checklist Patient Identification Patient Identification: Arm Band and Verbal (Name & ) Structural Data Admitted From: Home Planned Operative Procedure/s: Pain pump placement Consent for Planned Operative Procedure(s) Verified: Yes NPO Status Verified Time NPO: 00:00 Chart Verification Results Verified: CBC and BMP Additional verifications Anesthesia Reactions: No Hx Blood Transfusions: Yes Blood Transfusion Reaction: No Airway Assessment C-Spine Mobility Assessed: Yes TMJ Mobility Assessed: Yes Dentition: Dentures-poor fitting Neurological Assessment Level of Consciousness: Awake Hx Seizures: No Numbness or tingling in extremities: No Anesthesia Plan Anesthesia Risk discussed: Yes Anesthesia Plan: Verified ASA Class: III Anesthesia Type: MAC
[2022-10-30 07:23] LABS: Chloride 107 mmol/L (98-107); Sodium 139 mmol/L (136-145)
[2022-10-30 07:24] LABS: Potassium 4.2 mmoL/L (3.5-5.1)
[2022-10-30 07:26] LABS: Basophils # 0.1 K/mm3 (0-0.2); Basophils % 0.8 % (0.1-2.0); Blood Urea Nitrogen 22 mg/dl (7-17); Creatinine Clearance Estimated 67 mL/min (50-200); Eosinophils # 0.6 K/mm3 (0.0-0.4); Eosinophils % 6.3 % (0.1-12.0); Estimated Glomerular Filt Rate 62 ml/min (>60); GFR (African American) 75 ML/MIN (>60); Hematocrit 31.6 % (37.0-47.0); Hemoglobin 10.1 g/dL (12.2-16.2); Lymphocytes # 1.6 K/mm3 (0.7-4.5); Lymphocytes % 17.6 % (10-50); Mean Corpuscular HGB Conc 32.1 g/dL (31.8-35.4); Mean Corpuscular Hemoglobin 23.9 pg (27.0-31.2); Mean Corpuscular Volume 74.7 fl (81-99); Mean Platelet Volume 8.5 fl (7.4-10.4); Monocytes # 0.5 K/mm3 (0.1-1.0); Monocytes % 5.2 % (1.7-9.3); Neutrophils # 6.5 K/mm3 (1.8-7.8); Neutrophils % 70.2 % (37.0-80.0); Platelet Count 276 K/mm3 (142-424); Red Blood Count 4.23 M/mm3 (4.20-5.40); Red Cell Distribution Width 16.4 % (11.5-17.5); White Blood Count 9.3 K/mm3 (4.8-10.8)
[2022-10-30 07:27] LABS: Anion Gap 6.2 mEq/L (5-15); Calcium 8.6 mg/dl (8.4-10.2); Carbon Dioxide 30 mmol/L (22.0-30.0); Glucose 97 mg/dl (74-100)
[2022-10-30 07:37] LABS: Amphetamine/Metha Screen,Urine Negative ng/ml (<1000); Barbiturates Screen,Urine Negative ng/ml (<200)
[2022-10-30 07:38] LABS: Benzodiazepines Screen,Urine Positive ng/ml (<200)
[2022-10-30 07:39] LABS: Cannabinoid Screen,Urine Negative ng/ml (<50); Methadone Screen,Urine Negative ng/ml (<300)
[2022-10-30 07:40] LABS: Cocaine Screen,Urine Negative ng/ml (<300)
[2022-10-30 07:41] LABS: Opiate Screen,Urine Negative ng/ml (<300); Phencyclidine Screen,Urine Negative ng/ml (<25)
[2022-10-30 08:48] VITALS: TEMP 43
[2022-10-30 09:17] VITALS: BP 127/71; PULSE 67; RESP 16; TEMP 37; O2SAT 95
[2022-10-30 09:27] VITALS: BP 99/73; PULSE 70; RESP 15; O2SAT 95
[2022-10-30 09:37] VITALS: BP 132/87; PULSE 72; RESP 17; O2SAT 98
--- NOTE | 2022-10-30 15:12 | P.OP_ITS ---
Date of procedure: 10/30/22 Pre-op Diagnosis:: Degenerative disc disease of lumbar spine with lumbar radiculopathy Post-op Diagnosis:: Same Procedure performed:: Permanent placement intrathecal pain pump with tunnel catheter and pump placeme nt Surgeon:: Tarun Lopez MD INDUSTRIAL PSYCHOLOGIST:: Nicole Bear Anesthesia: MAC Estimated blood loss (mL): 5 Clinical Note:: This patient is a pleasant 72-year-old white female who we are treating for low back pain with lumbar radiculopathy symptoms as well as neck pain with cervical radiculopathy symptoms. She has failed all previous conservative treatments including injections, oral medications, physical therapy and she is not a surgical candidate. She has had a successful intrathecal pump trial. She also has had a successful psychological evaluation. She presents for permanent placement of her intrathecal pain pump today. Operative findings:: None Operative note:: Informed consent was obtained the risk and benefits of the procedure were explained to the patient. The patient was taken the operating room placed prone on the procedure table. She was prepped and draped in sterile fashion. C-arm fluoroscopy was used to view the right flank. The pump pocket was created on the right flank care home between the 12th rib and iliac crest. C-arm fluoroscopy was then used to view the lumbar spine. The skin and subcutaneous tissues were anesthetized using lidocaine. We made an incision and dissected down to the lumbar paraspinous fascia. A 17-gauge spinal needle was inserted and advanced into the L4-5 interspace until clear CSF was obtained. After this intrathecal catheter was inserted and advanced very easily to the T8 vertebral body. Catheter was in the posterior location on lateral view. The stylette of the catheter and the needle were withdrawn. The catheter was secured to the fascia with an anchor and 2-0 Prolene. I tunneled the catheter from the back to the generator pocket and attached the catheter to the pump. Prior to this I filled the pump with 20 MLS of intrathecal morphine 1 mg per ml. I attached the catheter to the pump. I placed the pump in the pump pocket. We were able to freely withdraw clear CSF through the catheter access port. Both incisions were irrigated with antibiotic solution. Both incisions were then closed with 2-0 Vicryl followed by 4-0 nylon and raoul. The pump was interrogated and started at 0.1 mg/day of intrathecal morphine. Patient tolerated the procedure well with no complications. We will follow-up with this patient in 1 week for wound check and reprogram. We will follow-up in 2 weeks for suture and staple removal. Condition: stable Disposition: PACU Complications:: None
== END 2022-10-30 10:00 | disposition home or self-care (01) ==
PROVIDERS: PCP Family Medicine; Visit Provider Anesthesiology
DX: M51.16 Intervertebral disc disorders with radiculopathy, lumbar region (principal); F17.210 Nicotine dependence, cigarettes, uncomplicated; Z79.899 Other long term (current) drug therapy
CPT/HCPCS: 62350; 62362; 80048; 80305; 85025; 96374; C1755; C1772; J2704

== ENCOUNTER → 2022-11-06 10:34 | Outpatient (POV) | payer MEDICARE, SELFPAY ==
[2022-11-06 11:32] VITALS: BP 116/45; PULSE 72; RESP 18; O2SAT 98; BMI 25.8
--- NOTE | 2022-11-06 11:37 | EXP.PAIN.PRO ---
Procedure Date: 11/06/22 Time: 11:37 Anesthesiologist:: Delia Mcfarland APRN Complications:: None Pre-procedure Diagnosis:: Degenerative disc disease of lumbar spine with lumbar radiculopathy symptoms Post-procedure Diagnosis:: Same Indications for Procedure:: Patient is a pleasant 72-year-old female who presents today for follow-up of intrathecal pain pump implant on 10/30/2022. The patient is being treated for degenerative disc disease of lumbar spine with lumbar radiculopathy symptoms. Patient is currently being managed with morphine 1 mg/mL with a daily dose of 0.1 mg/day. Patient denies any side effects from this medication. Patient rates pain a 6 out of 10. Patient states she has had some incisional pain with back spasms. She does state that she did have 1 episode where she was incontinent of her bowels however she states she has not had any additional episodes. Patient denies any other trauma or injury following this procedure. Patient was previously prescribed Percocet 10 mg twice a day. Patient denies any side effects from this medication. She states that she still has a couple of remaining pills from that prescription. She is also been prescribed gabapentin 600 mg twice a day from an outside provider. Patient denies any side effects from this medication. Drug screen is appropriate. [facility] [id number] has been reviewed and is appropriate. Physical exam General: Alert and oriented x3, no acute distress, pleasant and cooperative Lungs: Respirations even and unlabored, symmetrical chest expansion Eyes: PERRL Musculoskeletal: Flexion and extension of lumbar [spine] somewhat guarded secondary to pain, [antalgic gait noted] Neurological: Speech clear, no gross sensory deficit Skin: Incision sites clean, dry, well approximated with no erythema or drainage noted Procedure Details:: Informed consent was obtained and the risk and benefits of the procedure were explained to the patient. Patient was taken to the procedure room where noninvasive monitoring was placed including noninvasive blood pressure cuff and pulse oximeter. Patient's pump was interrogated and was reprogrammed to morphine 1 mg/mL with a daily dose of 0.11 mg/day. The patient tolerated the procedure well with no complications. Plan and Disposition:: Patient is doing well following her intrathecal pain pump placement at today's visit. Her incision sites are clean, dry, well approximated with no erythema and no drainage noted. I have counseled the patient that our next visit we will remove the sutures and raoul if indicated and apply Steri-Strips. I have also counseled the patient to monitor any side effects from her pump increase at today's visit such as edema or itching. Patient will return to clinic in 2 weeks for reevaluation of symptoms and plan of care. Patient has been instructed to contact the clinic with any concerns before the next appointment. Dr. Lopez has reviewed this note and agrees with this plan of care. This note was dictated using voice recognition software and make contain errors or omissions. -- It Is medically necessary for this patient to continue to have their intrathecal pump refilled at regular intervals. This patient had an intrathecal pain pump implanted after meeting criteria of chronic intractable pain for greater than 3 months and failing conservative treatments. Patient has committed and been compliant to the treatment plan and all planned follow up care. Since implantation of the intrathecal pain pump, the patient has had decreased pain and been more functional. Oral medications have been reduced including intake of oral opioids. Patient continues to do well with intrathecal therapy with decrease in pain symptoms and increase in functional status. Stopping intrathecal medications can lead to life threatening withdrawal, seizures, cardiac arrest, severe pain, and possible . Pumps that are not refilled at regular intervals can be damag
== END | disposition home or self-care (01) ==
PROVIDERS: PCP Family Medicine; Visit Provider Nurse Practitioner Family
DX: M51.16 Intervertebral disc disorders with radiculopathy, lumbar region (principal); Z45.1 Encounter for adjustment and management of infusion pump
CPT/HCPCS: 62368; 99213; G0463

== ENCOUNTER → 2022-11-18 10:43 | Outpatient (POV) | payer MEDICARE, SELFPAY ==
[2022-11-18 11:30] VITALS: BP 147/76; PULSE 74; RESP 20; BMI 26.5
--- NOTE | 2022-11-18 11:38 | EXP.PAIN.PRO ---
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 Post-procedure Diagnosis:: Same Indications for Procedure:: Patient is a pleasant 72-year-old female who presents today for intrathecal pain pump reprogramming adjustment. The patient is being treated for degenerative disc disease of cervical and lumbar spine with cervical and lumbar radiculopathy symptoms, chronic back pain, mid/low back pain, neck pain. Patient is currently being managed with morphine 1 mg/mL with a daily dose of 0.11 mg/day. Patient denies any side effects from this medication. Patient rates pain a 4 out of 10. Patient states that she did recently have a fall last week when getting up from the commode. She states that she had an episode of orthostatic hypotension and fell down against her shoulder and right upper back. Patient denies going to the ER for evaluation and states that she just had a bruise and soreness. Patient states today that she is feeling much better and does not have any concerns that she fractured or injured anything significantly. Patient did have her intrathecal pain pump placed on 10/30/2022. Patient denies any other problems following this procedure. She does state that she is still having some itching around where the sutures and raoul are. Patient does have a cardiac history's with stents [place] [address] Baxter. She does continue to use her Downing balm topical and heating pad as needed. Drug screen is appropriate. [facility] [id number] has been reviewed and is appropriate. Physical exam General: Alert and oriented x3, no acute distress, pleasant and cooperative Lungs: Respirations even and unlabored, symmetrical chest expansion Eyes: PERRL Musculoskeletal: Flexion and extension of cervical, lumbar [spine] somewhat guarded secondary to pain, [antalgic gait noted] Neurological: Speech clear, no gross sensory deficit Skin: Incision sites clean, dry, well approximated with minimal erythema noted, raoul and sutures intact Procedure Details:: Informed consent was obtained and the risk and benefits of the procedure were explained to the patient. Patient was taken to the procedure room where noninvasive monitoring was placed including noninvasive blood pressure cuff and pulse oximeter. Patient's pump was interrogated and was reprogrammed to morphine 0.1211 mg/day. The patient tolerated the procedure well with no complications. Plan and Disposition:: Patient's incision is clean, dry, well approximated with minimal erythema noted. We did remove majority of her sutures and raoul however I have counseled the patient that we will remove the remaining at next week's visit if indicated and that we will apply Steri-Strips. I have counseled the patient that to continue her postop restrictions. Patient will return to clinic in 1 week for reevaluation of symptoms, possible intrathecal reprogramming adjustment and follow-up. Patient has been instructed to contact the clinic with any concerns before the next appointment. Dr. Lopez has reviewed this note and agrees with this plan of care. This note was dictated using voice recognition software and make contain errors or omissions. -- It Is medically necessary for this patient to continue to have their intrathecal pump refilled at regular intervals. This patient had an intrathecal pain pump implanted after meeting criteria of chronic intractable pain for greater than 3 months and failing conservative treatments. Patient has committed and been compliant to the treatment plan and all planned follow up care. Since implantation of the intrathecal pain pump, the patient has had decreased pain and been more functional. Oral medications have been reduced including intake of oral opioids. Pat
== END | disposition home or self-care (01) ==
PROVIDERS: PCP Family Medicine; Visit Provider Nurse Practitioner Family
DX: Z45.1 Encounter for adjustment and management of infusion pump (principal); M50.10 Cervical disc disorder with radiculopathy, unspecified cervical region; M54.50 Low back pain, unspecified; G89.29 Other chronic pain
CPT/HCPCS: 62368

== ENCOUNTER → 2022-11-26 13:42 | Outpatient (POV) | payer MEDICARE, SELFPAY ==
--- NOTE | 2022-11-26 14:15 | EXP.PAIN.PRO ---
Procedure Date: 11/26/22 Time: 14:15 Anesthesiologist:: Delia Mcfarland APRN Complications:: None Pre-procedure Diagnosis:: Degenerative disc disease of cervical and lumbar spine with cervical and lumbar radiculopathy symptoms, chronic back pain, neck pain, mid/low back pain Post-procedure Diagnosis:: Same Indications for Procedure:: Patient is a pleasant 72-year-old female who presents today for intrathecal pain pump reprogramming and adjustment. The patient is being treated for degenerative disc disease of cervical and lumbar spine with cervical and lumbar radiculopathy symptoms, chronic back pain, neck pain, mid to low back pain. Patient is currently being managed with morphine 1 mg/mL with a daily dose of 0.1211 mg/day. Patient denies any side effects from this medication. Patient is also prescribed gabapentin 600 mg twice a day. She does state that her primary care doctor is requesting we take over this prescription. She states that she will need a refill before her next appointment date. Patient rates pain a 3 out of 10. Drug screen is appropriate. [place] [id number] has been reviewed and is appropriate. Physical exam General: Alert and oriented x3, no acute distress, pleasant and cooperative Lungs: Respirations even and unlabored, symmetrical chest expansion Eyes: PERRL Musculoskeletal: Flexion and extension of cervical, lumbar [spine] somewhat guarded secondary to pain, [antalgic gait noted] Neurological: Speech clear, no gross sensory deficit Skin: Incision sites clean, dry, well approximated with minimal erythema, sutures and raoul intact Procedure Details:: Informed consent was obtained and the risk and benefits of the procedure were explained to the patient. Patient was taken to the procedure room where noninvasive monitoring was placed including noninvasive blood pressure cuff and pulse oximeter. Patient's pump was interrogated and was reprogrammed to morphine 0.1332 mg/day. The patient tolerated the procedure well with no complications. Plan and Disposition:: Patient was increased during today's visit and tolerated it well with no complications. I have counseled the patient to continue her postop restrictions of minimal bending, lifting, twisting, no submerging in water until her incisions are fully healed and to continue to wear her abdominal binder. Patient's incision sites are clean, dry, well approximated with minimal erythema noted. She did have the remaining sutures and raoul removed during today's visit and Steri-Strips applied. I will refill the patient's gabapentin 600 mg twice a day and provide a 1 month supply of this medication. Patient will return to clinic in 1 month for reevaluation of symptoms and plan of care. Patient has been instructed to contact the clinic with any concerns before the next appointment. Dr. Lopez has reviewed this note and agrees with this plan of care. This note was dictated using voice recognition software and make contain errors or omissions. -- It Is medically necessary for this patient to continue to have their intrathecal pump refilled at regular intervals. This patient had an intrathecal pain pump implanted after meeting criteria of chronic intractable pain for greater than 3 months and failing conservative treatments. Patient has committed and been compliant to the treatment plan and all planned follow up care. Since implantation of the intrathecal pain pump, the patient has had decreased pain and been more functional. Oral medications have been reduced including intake of oral opioids. Patient continues to do well with intrathecal therapy with decrease in pain symptoms and increase in functional status. Stopping intrathecal medications can lead to life threatening withdrawal, seizures, cardiac arrest, severe pain, and possible . Pumps that are not refilled at regular intervals can be damages and cause and need for replacement. We continually titrate dose and concentration to
[2022-11-26 15:00] VITALS: BP 159/58; PULSE 75; RESP 18; O2SAT 98; BMI 26.5
== END | disposition home or self-care (01) ==
PROVIDERS: PCP Family Medicine; Visit Provider Nurse Practitioner Family
DX: M50.10 Cervical disc disorder with radiculopathy, unspecified cervical region (principal); Z45.1 Encounter for adjustment and management of infusion pump
CPT/HCPCS: 62368; 99213; G0463

== ENCOUNTER → 2022-12-16 11:14 | Outpatient (POV) | payer MEDICARE, SELFPAY ==
--- NOTE | 2022-12-16 11:43 | EXP.PAIN.SOA ---
[facility] Pain Management SOAP Note Subjective:: Patient is a pleasant 72-year-old female who presents today for medication refill and follow-up. We are currently treating her for degenerative disc disease of cervical and lumbar spine with cervical and lumbar radiculopathy symptoms [facility] Disclaimer: The information contained in this section may have been updated after the patient was seen, as this information can be updated by other users. Medical History Chronic back pain Dyspnea HTN (hypertension) PAD (peripheral artery disease) JACOBO (renal artery stenosis) Surgical History History of section History of cholecystectomy History of hysterectomy History of knee replacement Family History Other Family history of TIAs Family history of cancer Family history of myocardial infarction Social History Smoking Status: Current every day smoker tobacco type: cigarettes packs per day: 1 alcohol intake: never substance use type: denies use current occupational status: retired Travel in the last 8 weeks: None housing: house marital status: education level: high school current occupational exposures/hazards: No caffeine: Yes special vanessa needs: No agree to transfusion: No do you feel safe at home: Yes victim of physical abuse: No victim of emotional abuse: No victim of sexual abuse: No would you like helpful sources: No
--- NOTE | 2022-12-16 11:48 | EXP.PAIN.PRO ---
Procedure Date: 12/16/22 Time: 11:48 Anesthesiologist:: Delia Mcfarland APRN Complications:: None Pre-procedure Diagnosis:: degenerative disc disease of cervical and lumbar spine with cervical and lumbar radiculopathy symptoms Post-procedure Diagnosis:: Same Indications for Procedure:: Patient is a pleasant 72-year-old female who presents today for intrathecal pain pump adjustment and reprogram. The patient is being treated for degenerative disc disease of cervical and lumbar spine with cervical and lumbar radiculopathy symptoms. Patient is currently being managed with intrathecal morphine 1 mg/mL with a daily dose of 0.1332 mg/day. Patient denies any side effects from this medication. Patient rates pain a 7 out of 10. Drug screen is appropriate. We did recently take over her gabapentin prescription and is currently on gabapentin 300 mg twice daily. Patient denies any side effects from this medication. She does state that her previous prescription was gabapentin 600 mg twice a day and that she had been on this medication for years. [facility] [id number] has been reviewed and is appropriate. Physical exam General: Alert and oriented x3, no acute distress, pleasant and cooperative Lungs: Respirations even and unlabored, symmetrical chest expansion Eyes: PERRL Musculoskeletal: Flexion and extension of lumbar [spine] somewhat guarded secondary to pain, [antalgic gait noted] Neurological: Speech clear, no gross sensory deficit Procedure Details:: Informed consent was obtained and the risk and benefits of the procedure were explained to the patient. Patient was taken to the procedure room where noninvasive monitoring was placed including noninvasive blood pressure cuff and pulse oximeter. Patient's pump was interrogated and was reprogrammed to morphine 0.1597 mg/day. The patient tolerated the procedure well with no complications. Plan and Disposition:: Patient tolerated her intrathecal increase with no complications and was discharged neurologically intact. I will refill her gabapentin 300 mg twice daily and provide a 1 month supply of this medication. Patient's PTM device was set up during today's visit. She will return to clinic in 2 weeks for possible readjustment of her intrathecal pain pump. Patient has been instructed to contact the clinic with any concerns before the next appointment. Dr. Lopez has reviewed this note and agrees with this plan of care. This note was dictated using voice recognition software and make contain errors or omissions. -- It Is medically necessary for this patient to continue to have their intrathecal pump refilled at regular intervals. This patient had an intrathecal pain pump implanted after meeting criteria of chronic intractable pain for greater than 3 months and failing conservative treatments. Patient has committed and been compliant to the treatment plan and all planned follow up care. Since implantation of the intrathecal pain pump, the patient has had decreased pain and been more functional. Oral medications have been reduced including intake of oral opioids. Patient continues to do well with intrathecal therapy with decrease in pain symptoms and increase in functional status. Stopping intrathecal medications can lead to life threatening withdrawal, seizures, cardiac arrest, severe pain, and possible . Pumps that are not refilled at regular intervals can be damages and cause and need for replacement. We continually titrate dose and concentration to optimize pain relief and function. We are limited in concentration for certain drugs to safely deliver medications through the pump and stay within the recommendations from the Polyanalgesic Consensus Committee Guidelines. Depending on dose and concentration these pumps may need to be refilled sooner than 3 months as we titrate.
[2022-12-16 12:06] VITALS: BP 163/59; PULSE 77; RESP 19; O2SAT 97; BMI 25.8
== END | disposition home or self-care (01) ==
PROVIDERS: PCP Family Medicine; Visit Provider Nurse Practitioner Family
DX: Z45.1 Encounter for adjustment and management of infusion pump (principal); M50.10 Cervical disc disorder with radiculopathy, unspecified cervical region; M51.16 Intervertebral disc disorders with radiculopathy, lumbar region
CPT/HCPCS: 62368; 99213; G0463

== ENCOUNTER → 2022-12-30 13:30 | Outpatient (POV) | payer MEDICARE, SELFPAY ==
--- NOTE | 2022-12-30 13:45 | EXP.PAIN.PRO ---
Procedure Date: 12/30/22 Time: 13:45 Anesthesiologist:: Delia Mcfarland APRN Complications:: None Pre-procedure Diagnosis:: Degenerative disc disease of cervical and lumbar spine with cervical and lumbar radiculopathy symptoms Post-procedure Diagnosis:: Same Indications for Procedure:: Patient is a pleasant 72-year-old female who presents today for intrathecal pain pump adjustment and reprogram.? The patient is being treated for degenerative disc disease of cervical and lumbar spine with cervical and lumbar radiculopathy symptoms. She rates her pain today a 4 out of 10. She did state that yesterday her sock got stuck in the wheel of her motorized wheelchair and she did fall out of her chair. She states that she is a little stoved up from this incident however denies any significant trauma or fracture. Since our last visit she does state that she did have significant improvement with her pain symptoms. Patient is currently being managed with intrathecal morphine 1 mg/mL with a daily dose of 0. 1597 mg/day. Patient denies any side effects from this medication. She is also managed with gabapentin 600 mg twice a day. Patient denies any side effects from this medication. Her [place] is [id number]. Its been reviewed and appropriate. ? Physical exam General: Alert and oriented x3, no acute distress, pleasant and cooperative Lungs: Respirations even and unlabored, symmetrical chest expansion Eyes: PERRL Musculoskeletal: Flexion and extension of lumbar [spine] somewhat guarded secondary to pain, [antalgic gait noted] Neurological: Speech clear,? no gross sensory deficit Procedure Details:: Informed consent was obtained and the risk and benefits of the procedure were explained to the patient. Patient was taken to the procedure room where noninvasive monitoring was placed including noninvasive blood pressure cuff and pulse oximeter. Patient's pump was interrogated and was reprogrammed to morphine 0.1755 mg/day. The patient tolerated the procedure well with no complications. Plan and Disposition:: Patient tolerated her intrathecal increase with no complications. Patient just had her gabapentin refilled 2 weeks ago and does not require any additional refills at this time. Patient will return to clinic in 1 month for reevaluation of symptoms and plan of care. Patient has been instructed to contact the clinic with any concerns before the next appointment. Dr. Lopez has reviewed this note and agrees with this plan of care. This note was dictated using voice recognition software and make contain errors or omissions. -- It Is medically necessary for this patient to continue to have their intrathecal pump refilled at regular intervals. This patient had an intrathecal pain pump implanted after meeting criteria of chronic intractable pain for greater than 3 months and failing conservative treatments. Patient has committed and been compliant to the treatment plan and all planned follow up care. Since implantation of the intrathecal pain pump, the patient has had decreased pain and been more functional. Oral medications have been reduced including intake of oral opioids. Patient continues to do well with intrathecal therapy with decrease in pain symptoms and increase in functional status. Stopping intrathecal medications can lead to life threatening withdrawal, seizures, cardiac arrest, severe pain, and possible . Pumps that are not refilled at regular intervals can be damages and cause and need for replacement. We continually titrate dose and concentration to optimize pain relief and function. We are limited in concentration for certain drugs to safely deliver medications through the pump and stay within the recommendations from the Polyanalgesic Consensus Committee Guidelines. Depending on dose and concentration these pumps may need to be refilled sooner than 3 months as we titrate.
[2022-12-30 14:49] VITALS: BP 123/84; PULSE 80; RESP 18; O2SAT 97; BMI 25.6
== END | disposition home or self-care (01) ==
PROVIDERS: PCP Family Medicine; Visit Provider Nurse Practitioner Family
DX: Z45.1 Encounter for adjustment and management of infusion pump (principal); M51.16 Intervertebral disc disorders with radiculopathy, lumbar region; M50.10 Cervical disc disorder with radiculopathy, unspecified cervical region
CPT/HCPCS: 62368; 99213; G0463

== ENCOUNTER 2023-01-26 13:19 | Day surgery (SDC) | payer MEDICARE, SELFPAY ==
[2023-01-26 13:39] VITALS: BP 122/53; PULSE 78; RESP 18; TEMP 36.8; O2SAT 96; BMI 27.3
[2023-01-26 13:44] VITALS: BP 128/45; PULSE 83; RESP 18; O2SAT 98
[2023-01-26 13:49] VITALS: BP 128/45; PULSE 83; RESP 18; O2SAT 98
--- NOTE | 2023-01-26 14:14 | PC.NURSE ---
1405- procedure cancelled, pump not accessed, per provider Charline Wetzel [employer]
--- NOTE | 2023-01-26 14:14 | EXP.PAIN.PRO ---
Procedure Date: 01/26/23 Time: 13:30 Anesthesiologist:: Dmitriy Wetzel CRNA Complications:: None Pre-procedure Diagnosis:: Degenerative disc lumbar spine multilevels. Lumbar radiculopathy. Degenerative disc cervical spine cervical radiculopathy. Post-procedure Diagnosis:: Same Indications for Procedure:: Very pleasant 72-year-old female that comes our clinic today for intrathecal pain pump refill and interrogation. I was unsuccessful at accessing the pump under fluoroscopy guidance. Patient will return to see Dr. Lopez on February 12 for refill and interrogation. Patient has plenty of volume in her intrathecal pain pump to wait until February 12. Procedure Details:: Unsuccessful intrathecal pain pump access. Plan and Disposition:: Discussed in detail with the patient. Patient will return on February 12.
== END 2023-01-26 14:05 | disposition home or self-care (01) ==
LOC: SC.PAINP 13:23
PROVIDERS: PCP Family Medicine; Visit Provider Nurse Anesthetist, Certified Registered
DX: Z45.1 Encounter for adjustment and management of infusion pump (principal); M51.16 Intervertebral disc disorders with radiculopathy, lumbar region; M50.10 Cervical disc disorder with radiculopathy, unspecified cervical region; Z53.8 Procedure and treatment not carried out for other reasons; T85.890A Other specified complication of nervous system prosthetic devices, implants and grafts, initial encounter
CPT/HCPCS: 95991

== ENCOUNTER → 2023-02-12 12:54 | Day surgery (SDC) | payer MEDICARE, SELFPAY ==
[2023-02-12 14:54] VITALS: BP 139/59; PULSE 66; RESP 20; O2SAT 97; BMI 27.3
[2023-02-12 15:48] VITALS: BP 114/36; PULSE 83; RESP 18; O2SAT 97
[2023-02-12 15:51] VITALS: BP 114/36; PULSE 83; RESP 18; O2SAT 97
--- NOTE | 2023-02-12 17:07 | EXP.PAIN.PRO ---
Procedure Date: 02/12/23 Time: 17:07 Anesthesiologist:: Tarun Lopez MD Complications:: None Pre-procedure Diagnosis:: Degenerative disc disease of lumbar spine with lumbar radiculopathy symptoms Post-procedure Diagnosis:: Same Indications for Procedure:: This patient is a pleasant 72-year-old white female who we are treating for low back pain with lumbar radiculopathy symptoms. She has increasing pain in her back radiating down both legs. She did present for pain pump refill previously however her pump was flipped we will try to flip her pump back and refill it today. She is having some increasing pain we will also increase her dose today. [place] and drug screen are all appropriate. She does have an antalgic gait. Motor strength of lower extremities is 5/5. There is no gross sensory deficit. Procedure Details:: Informed consent was obtained and the risks and benefits of the procedure was explained to the patient. The patient was taken to the procedure room. The pump was interrogated. The area over the pump was prepped using ChloraPrep. The pump was accessed with a 22-gauge needle. Approximately 2 mL's of the intrathecal solution was withdrawn and discarded. The pump was then refilled with 20 mL's of intrathecal morphine 2 mg per mill. The pump was interrogated and the infusion was increased to 0.25 mg/day. Patient did have a bridge bolus of 37 hours and 9 minutes. The patient tolerated the procedure well with no complication. Plan and Disposition:: We were unable to flip the pump back. However we did get the pump filled today. The patient will need a surgical procedure for revision of the pump pocket.
== END | disposition home or self-care (01) ==
PROVIDERS: PCP Family Medicine; Visit Provider Anesthesiology
DX: M51.16 Intervertebral disc disorders with radiculopathy, lumbar region (principal); Z45.1 Encounter for adjustment and management of infusion pump
CPT/HCPCS: 62370

== ENCOUNTER 2023-02-21 00:41 | Observation (INO) | payer MEDICARE, SELFPAY ==
[2023-02-21] VITALS (48 sets, daily range): BP systolic 98–163; BP diastolic 33–90; PULSE 50–81; RESP 16–20; TEMP 36.5–37.2; O2SAT 87–100; BMI 26.5; BMI 26.4
--- NOTE | 2023-02-21 00:37 | ECG_ITS ---
APPROVED REPORT Exam: Resting ECG HR:63 bpm ECG Measurements Heart Rate [address] 171 P 48 QRSd 91 QRS 57 QT 390 T 6 QTc 397 Conclusion SINUS RHYTHM NONSPECIFIC T-WAVE ABNORMALITY BORDERLINE ECG UNCONFIRMED REPORT Electronically signed by : Denis Love MD 02/21/2023 13:50:51
--- NOTE | 2023-02-21 00:51 | CT_ITS ---
PROCEDURE INFORMATION: Exam: CT Head Without Contrast Exam date and time: 02/21/2023 1:56 AM Age: 72 years old Clinical indication: Other: Weakness; Additional info: R/O CVA TECHNIQUE: Imaging protocol: Computed tomography of the head without contrast. Radiation optimization: All CT scans at this facility use at least one of these dose optimization techniques: automated exposure control; mA and/or kV adjustment per patient size (includes targeted exams where dose is matched to clinical indication); or iterative reconstruction. REPORTING DATA: Count of CT and Cardiac NM exams in prior 12 months: This patient has received [address] and 0 known cardiac nuclear medicine studies in the 12 months prior to the current study. COMPARISON: CT ANGIO NECK 06/14/2021 11:37 FINDINGS: Brain: Moderate chronic brain volume loss and chronic small vessel ischemic changes. Cerebral ventricles: No ventriculomegaly. Paranasal sinuses: Mild mucosal thickening in the paranasal sinuses. Mastoid air cells: Visualized mastoid air cells are well aerated. Bones/joints: Unremarkable. No acute fracture. Soft tissues: Unremarkable. IMPRESSION: No acute intracranial findings. If there is high clinical concern for acute infarction, consider MRI for further evaluation. ASSESSMENT: ASPECTS score ([place] Stroke Program Early CT Score) is 10.
--- NOTE | 2023-02-21 00:51 | XR_ITS ---
PROCEDURE INFORMATION: Exam: XR Chest Exam date and time: 02/21/2023 1:43 AM Age: 72 years old Clinical indication: Pain; Chest pressure; Additional info: Weakness TECHNIQUE: Imaging protocol: Radiologic exam of the chest. Views: 1 view. COMPARISON: CT ANGIO ABDOMEN PELVIS 05/05/2022 16:29 FINDINGS: Lungs: Mild bibasilar atelectasis. Pleural spaces: Small left pleural effusion. Heart/Mediastinum: Unremarkable. No cardiomegaly. Vasculature: Vascular calcifications. The great vessel stent is noted. Bones/joints: Unremarkable. IMPRESSION: Small left pleural effusion.
[2023-02-21 01:04] LABS: Basophils % 0.4 % (0.1-2.0); Eosinophils # 0.1 K/mm3 (0.0-0.4); Eosinophils % 2.8 % (0.1-12.0); Mean Corpuscular HGB Conc 28.2 g/dL (31.8-35.4); Mean Corpuscular Hemoglobin 17.5 pg (27.0-31.2); Mean Platelet Volume 9.2 fl (7.4-10.4); Monocytes # 0.3 K/mm3 (0.1-1.0); Monocytes % 5.9 % (1.7-9.3); Neutrophils # 3.8 K/mm3 (1.8-7.8); Platelet Count 218 K/mm3 (142-424); Red Blood Count 2.53 M/mm3 (4.20-5.40); Red Cell Distribution Width 18.2 % (11.5-17.5); White Blood Count 5.2 K/mm3 (4.8-10.8)
[2023-02-21 01:09] LABS: Coronavirus 19, PCR Not Detected (NotDetected); Influenza A, PCR Not Detected (NotDetected); Influenza B, PCR Not Detected (NotDetected); Microscopic, Urine URINE MICROSCOPIC (MICROSCOPIC)
[2023-02-21 01:11] LABS: Alanine Aminotransferase 16 U/L (12-78); Albumin Level 3.1 g/dl (3.5-5.0); Alkaline Phosphatase 66 U/L (38-126); Aspartate Amino Transferase 32 U/L (14-36); Bilirubin,Indirect 0.3 mg/dL (0.0-0.9); Bilirubin,Total 0.3 mg/dl (0.2-1.3); Bilirubin,Unconjugated 0.4 mg/dL (0.0-1.1); Blood Urea Nitrogen 15 mg/dl (7-17); Carbon Dioxide 27 mmol/L (22.0-30.0); Chloride 102 mmol/L (98-107); Creatinine Clearance Estimated 68 mL/min (50-200); Estimated Glomerular Filt Rate 82 ml/min (>60); GFR (African American) 100 ML/MIN (>60); Glucose 108 mg/dl (74-100); Sodium 137 mmol/L (136-145); Total Protein,Serum 5.4 g/dl (6.3-8.2)
[2023-02-21 01:13] LABS: Hematocrit 15.7 % (37.0-47.0)
--- NOTE | 2023-02-21 01:13 | PC.NURSE ---
Critical h&h of 4.4/15.7 called by lab. notified.
[2023-02-21 01:16] LABS: C-Reactive Protein 1.1 mg/L (0-4)
[2023-02-21 01:17] LABS: Hemoglobin 4.4 g/dL (12.2-16.2)
--- NOTE | 2023-02-21 01:18 | CT_ITS ---
PROCEDURE INFORMATION: Exam: CT Abdomen And Pelvis With Contrast Exam date and time: 02/21/2023 1:59 AM Age: 72 years old Clinical indication: Abdominal pain; Additional info: Suspected bleeding TECHNIQUE: Imaging protocol: Computed tomography of the abdomen and pelvis with contrast. Radiation optimization: All CT scans at this facility use at least one of these dose optimization techniques: automated exposure control; mA and/or kV adjustment per patient size (includes targeted exams where dose is matched to clinical indication); or iterative reconstruction. Contrast material: ISOVUE; Contrast volume: 75 ml; Contrast route: IV; REPORTING DATA: Count of CT and Cardiac NM exams in prior 12 months: This patient has received [address] and 0 known cardiac nuclear medicine studies in the 12 months prior to the current study. COMPARISON: CT ANGIO ABDOMEN PELVIS 05/05/2022 16:29 FINDINGS: Tubes, catheters and devices: Thoracic spinal device. Urinary bladder is catheterized. Pleural spaces: Small high attenuation left pleural effusion. Heart: Stigma mitral valve calcifications. Liver: Normal. No mass. Gallbladder and bile ducts: Gallbladder is absent. Post cholecystectomy ectasia. Pancreas: Normal. No ductal dilation. Spleen: Normal. No splenomegaly. Adrenal glands: Normal. No mass. Kidneys and ureters: Normal. No hydronephrosis. Stomach and bowel: Liquid fecal contents in the colon suggests diarrhea. Nonspecific bowel wall thickening of segments of small bowel. Moderate sigmoid diverticulosis without diverticulitis. Appendix: No evidence of appendicitis. Intraperitoneal space: Unremarkable. No free air. No significant fluid collection. Vasculature: Unremarkable. No abdominal aortic aneurysm. Lymph nodes: Unremarkable. No enlarged lymph nodes. Urinary bladder: Unremarkable as visualized. Reproductive: Status post hysterectomy. Bones/joints: Chronic T12 fracture. No acute fracture. Soft tissues: Unremarkable. IMPRESSION: 1. Small high attenuation left pleural effusion. This is suspicious for hemothorax. 2. No intra-abdominal or intrapelvic hematoma or hemorrhage. 3. Nonspecific appearance of the bowel that could correlate with enterocolitis in the appropriate clinical setting. Moderate sigmoid diverticulosis without diverticulitis. These can be sources of GI hemorrhage.
--- NOTE | 2023-02-21 01:18 | PC.NURSE ---
Critical potassium of 3.0 called by lab. notified.
[2023-02-21 01:19] LABS: Appearance,Urine CLEAR (Clear); Bilirubin,Urine Negative (Negative); Blood, Urine Negative (Negative); Color,Urine YELLOW (Yellow); Glucose,Urine (UA) Negative (Negative); Ketones,Urine Negative (Negative); Leukocyte Esterase,Urine Negative (Negative); Nitrate,Urine Negative (Negative); PH,Urine 5.5 (5.0-8.5); Protein,Urine Negative (Negative)
[2023-02-21 01:26] LABS: NT Pro Brain Natriuretic Pep. 3280 pg/mL (0-125)
[2023-02-21 01:31] LABS: T4 (Thyroxine) 14.7 ug/dl (5.53-11.0)
[2023-02-21 01:32] LABS: Procalcitonin 0.033 ng/mL (0.0-2.0)
--- NOTE | 2023-02-21 01:33 | PC.NURSE ---
Rounded on patient. Asked patient at this time if she had been having any dark colored stool or abdominal pain. Patient states that she has been having both of those symptoms for the prior week but her ear has been bothering her more.
[2023-02-21 01:42] LABS: Troponin I < 0.01 ng/ml (0.00-0.034)
[2023-02-21 01:44] LABS: Thyroid Stimulating Hormone 1.36 uIU/mL (0.465-4.68)
[2023-02-21 01:46] LABS: Erythrocyte Sedimentation Rate 77 mm/hr (0-30)
[2023-02-21 01:53] LABS: Bacteria,Urine Trace /lpf; Hyaline Casts,Urine Occasional #/lpf (0); WBC,Urine Occasional #/hpf (0-3)
[2023-02-21 02:23] LABS: Occult Blood,Stool Positive (Negative)
--- NOTE | 2023-02-21 02:55 | HMH.EDWEAK ---
Discharge Plan Disposition Patient Disposition: Admitted Chief Complaint: Weakness Clinical Impressions Clinical Impression: Anemia, blood loss Discharge ED Provider: Juan Jose (ED),Lars Beauchamp Weakness HPI General Chief complaint: Weakness Stated complaint: Weakness Time Seen by Provider: 02/21/23 02:00 Mode of Arrival: EMS Source of Information: Patient, Relative and EMS Limitations: No Limitations Description of Symptoms (Recalled from ER Triage Doc. by RN): 72 yo female presents via EMS for cc OF episode of weakness. According to EMS report, patient had an episode and the family thought she was having a stroke, so they called 911 and took her BP, finding her to be in the 70's systolic on their home device; EMS reported a more normalized bp, gave her some IVF's and noticed a positive increase to the 120's systolic range. FSBS 179mg/dl. Patient has a significant cardiac history including having received 3 stents. Patient recently had a pain pump placed, then subsequently fell, causing interference that she states will have to be surgically fixed. Additionally offered the information that she has been without her gabapentin and her muscle relaxers FOR 4 DAYS. Denies angina, denies dyspnea. Denies n/v/d. History of Present Illness HPI Narrative: pt with c/c of weakness and had episode of confusion and has hx of pad- pt on xarelto- no fever Complaint: generalized weakness Onset (ago): hour(s) Duration: intermittent Location: generalized Severity: moderate Associated symptoms: denies other symptoms Related Data Home Medications Medication Instructions Recorded Confirmed doxepin 150 mg capsule 150 mg PO DAILY Pain 03/12/20 02/21/23 naproxen 500 mg tablet 500 mg PO BID Pain 03/12/20 02/21/23 zolpidem 12.5 mg tablet,extended 12.5 mg PO HS sleep 03/12/20 02/21/23 release,multiphase diazepam 5 mg tablet 5 mg PO TID PRN Anxiety 03/25/21 02/21/23 furosemide 20 mg tablet (Lasix) 20 mg PO DAILY Fluid 03/25/21 02/21/23 montelukast 10 mg tablet 10 mg PO DAILY johnny 03/25/21 02/21/23 (Singulair) omega-3 fatty acids 1,000 mg 1,000 mg PO DAILY Cholesterol 03/25/21 02/21/23 capsule aspirin 81 mg chewable tablet 81 mg PO DAILY pad 04/16/21 02/21/23 rosuvastatin 20 mg tablet 20 mg PO DAILY Cholesterol 06/05/21 02/21/23 fluoxetine 40 mg capsule 40 mg PO DAILY Depression 07/21/21 02/21/23 losartan 100 mg tablet 100 mg PO DAILY Heart disease 06/15/22 02/21/23 morphine (PF) 1 mg/mL injection 0.1211 mg continuous intrathecal 11/18/22 02/21/23 solution infusion CONT Pain Previous Rx's Medication Instructions Recorded amlodipine 10 mg tablet (Norvasc) 10 mg PO DAILY Heart disease #90 08/10/22 tabs rivaroxaban 2.5 mg tablet (Xarelto) 2.5 mg PO BID PAD #60 tabs 10/12/22 methocarbamol 750 mg tablet 750 mg PO Q6H muscle spasms #120 11/09/22 tabs gabapentin 300 mg capsule 600 mg PO BID Pain #120 caps 01/14/23 metoprolol succinate 50 mg 50 mg PO DAILY Heart disease #90 01/14/23 tablet,extended release 24 hr tabs (Toprol XL) Allergies Allergy/AdvReac Type Severity Reaction Status Date / Time tetracycline Allergy Unknown Verified 01/26/23 13:40 [facility] Disclaimer: The information contained in this section may have been updated after the patient was seen, as this information can be updated by other users. Medical History (Updated 02/21/23 @ 04:29 by Lars Ingram (ED)MD) Angina pectoris Chronic back pain Dyspnea HTN (hypertension) PAD (peripheral artery disease) JACOBO (renal artery stenosis) Traumatic ecchymosis of left upper arm Surgical History History of section History of cholecystectomy History of hysterectomy History of knee replacement Family History Other Family history of TIAs Family history of cancer Family history of myocardial infarction Social History (Reviewed 02/04
--- NOTE | 2023-02-21 03:36 | EXP.HP ---
History of Present Illness *Admission Date: 02/21/23 *Reason for visit:: Weakness, shortness of breath *History of present illness: Ms Leblanc is a 72 year old female who presented to the ER with complaints of weakness and shortness of breath that has been progressing over the past few weeks. Work-up in the ER, patient found to have Hgb 4.4/ Hct 15.7. Occult stool +. Sed rate was elevated at 77. Chemistry was unremarkable, except for mild hypokalemia of 3.0. proBNP was elevated 3370. CXR demonstrated fairly clear lung gordillo with small left pleural effusion. CT abdomen/pelvis with contrast reported small pleural effusion vs hemothorax and nonspecific appearance of the bowel that could correlate with enterocolitis in the appropriate clinical setting, moderate sigmoid diverticulosis without diverticulitis which could be sources of GI hemorrhage. T&S was ordered. Discussed case with Dr. Ingram, agree with need for admission for further evaluation of profound anemia and possible source. [facility] Disclaimer: The information contained in this section may have been updated after the patient was seen, as this information can be updated by other users. Medical History (Updated 02/21/23 @ 04:29 by Lars Ingram (ED)MD) Angina pectoris Chronic back pain Dyspnea HTN (hypertension) PAD (peripheral artery disease) JACOBO (renal artery stenosis) Traumatic ecchymosis of left upper arm Surgical History History of section History of cholecystectomy History of hysterectomy History of knee replacement Family History Other Family history of TIAs Family history of cancer Family history of myocardial infarction Social History (Updated 02/21/23 @ 05:07 by Gissell Champion RN) Smoking Status: Current every day smoker tobacco type: cigarettes packs per day: 1 alcohol intake: never substance use type: denies use current occupational status: retired Travel in the last 8 weeks: None housing: house marital status: education level: high school current occupational exposures/hazards: No caffeine: Yes special vanessa needs: No agree to transfusion: No do you feel safe at home: Yes victim of physical abuse: No victim of emotional abuse: No victim of sexual abuse: No would you like helpful sources: No Review of Systems Constitutional Constitutional: Reports lethargy and Reports weakness Eyes Eyes: Reports system reviewed and no additional complaints, except as documented ENT Ears, Nose, Mouth, and Throat: Reports system reviewed and no additional complaints, except as documented *Cardiovascular Cardiovascular: Reports dyspnea and Reports leg edema (bilateral lower extremity edema) *Respiratory Respiratory: Reports cough (clear sputum) and Reports dyspnea *Gastrointestinal Gastrointestinal: Reports system reviewed and no additional complaints, except as documented Comments: Patient denies any dark stools. Has history of multiple polyps on colonoscopy. *Genitourinary Genitourinary: Reports system reviewed and no additional complaints, except as documented *Musculoskeletal Musculoskeletal: Reports back pain Comments: Patient has a pain pump, currently non-functioning 2' to fall approximately 1 month ago. Integumentary/Breasts Skin/Breast: Reports system reviewed and no additional complaints, except as documented *Neurologic Neurologic: Reports system reviewed and no additional complaints, except as documented and Reports weakness Psychiatric Psychiatric: Reports system reviewed and no additional complaints, except as documented Endocrine Endocrine: Reports system reviewed and no additional complaints, except as documented Hematologic/Lymphatic Hematologic/Lymphatic: Reports system reviewed and no additional complaints, except as documented Allergic/Immunologic Allergic/Immunologic: Rep
--- NOTE | 2023-02-21 03:37 | PC.NURSE ---
received call from radiology
[2023-02-21 03:44] LABS: Basophils % 0.3 % (0.1-2.0); Eosinophils # 0.1 K/mm3 (0.0-0.4); Eosinophils % 2.5 % (0.1-12.0); Lymphocytes % 20.1 % (10-50); Mean Corpuscular HGB Conc 27.6 g/dL (31.8-35.4); Mean Corpuscular Hemoglobin 17.2 pg (27.0-31.2); Mean Corpuscular Volume 62.4 fl (81-99); Mean Platelet Volume 9.8 fl (7.4-10.4); Monocytes # 0.3 K/mm3 (0.1-1.0); Monocytes % 5.9 % (1.7-9.3); Neutrophils # 3.5 K/mm3 (1.8-7.8); Neutrophils % 71.2 % (37.0-80.0); Platelet Count 198 K/mm3 (142-424); Red Blood Count 2.47 M/mm3 (4.20-5.40); Red Cell Distribution Width 18.2 % (11.5-17.5); White Blood Count 4.9 K/mm3 (4.8-10.8)
[2023-02-21 03:46] LABS: Hematocrit 15.4 % (37.0-47.0)
[2023-02-21 03:47] LABS: Hemoglobin 4.2 g/dL (12.2-16.2)
--- NOTE | 2023-02-21 03:48 | PC.NURSE ---
Critical labs called by Jessie in lab. H&h is 4.2/15.4. [employer]IL [employer]ER notified. Orders being entered by provider at this time.
--- NOTE | 2023-02-21 04:20 | PC.NURSE ---
MD Travis paged to hospitalist phone at this time.
[2023-02-21 04:30] LABS: Troponin I < 0.01 ng/ml (0.00-0.034)
[2023-02-21 05:17] LABS: Iron 23 ug/dL (37-170)
[2023-02-21 05:27] LABS: Total Iron Binding Capacity 369 ug/dL (265-497)
[2023-02-21 05:54] LABS: Ferritin 3.64 ng/ml (11.1-264)
[2023-02-21 07:11] LABS: Vitamin B12 344 pg/mL (239-931)
[2023-02-21 08:31] LABS: Basophils % 0.3 % (0.1-2.0); Eosinophils # 0.2 K/mm3 (0.0-0.4); Eosinophils % 3.4 % (0.1-12.0); Lymphocytes # 1.1 K/mm3 (0.7-4.5); Lymphocytes % 24.3 % (10-50); Mean Corpuscular HGB Conc 29.5 g/dL (31.8-35.4); Mean Corpuscular Hemoglobin 19.5 pg (27.0-31.2); Mean Platelet Volume 9.4 fl (7.4-10.4); Monocytes # 0.3 K/mm3 (0.1-1.0); Monocytes % 6.7 % (1.7-9.3); Neutrophils % 65.3 % (37.0-80.0); Platelet Count 189 K/mm3 (142-424); Red Blood Count 2.68 M/mm3 (4.20-5.40); Red Cell Distribution Width 20.1 % (11.5-17.5); White Blood Count 4.6 K/mm3 (4.8-10.8)
[2023-02-21 08:34] LABS: Hematocrit 17.7 % (37.0-47.0)
[2023-02-21 08:36] LABS: Chloride 105 mmol/L (98-107); Potassium 3.3 mmoL/L (3.5-5.1); Sodium 137 mmol/L (136-145)
[2023-02-21 08:38] LABS: Alanine Aminotransferase 11 U/L (12-78); Aspartate Amino Transferase 18 U/L (14-36); Blood Urea Nitrogen 14 mg/dl (7-17); Creatinine Clearance Estimated 68 mL/min (50-200); Estimated Glomerular Filt Rate 99 ml/min (>60); GFR (African American) 119 ML/MIN (>60)
[2023-02-21 08:39] LABS: Albumin Level 2.7 g/dl (3.5-5.0); Albumin/Globulin Ratio 1.2 (1.1-1.8); Alkaline Phosphatase 59 U/L (38-126); Anion Gap 8.3 mEq/L (5-15); Calcium 7.8 mg/dl (8.4-10.2); Carbon Dioxide 27 mmol/L (22.0-30.0); Globulin 2.2 g/dL (1.3-3.2); Glucose 94 mg/dl (74-100); Magnesium 1.9 mg/dl (1.6-2.3); Phosphorous 4.3 mg/dl (2.5-4.5); Total Protein,Serum 4.9 g/dl (6.3-8.2)
[2023-02-21 08:40] LABS: Bilirubin,Total < 0.1 mg/dl (0.2-1.3)
[2023-02-21 08:51] LABS: Troponin I < 0.01 ng/ml (0.00-0.034)
[2023-02-21 08:54] LABS: Prothrombin Time 10.8 seconds (10.1-12.5)
[2023-02-21 09:00] LABS: Hemoglobin 5.2 g/dL (12.2-16.2)
--- NOTE | 2023-02-21 09:27 | EXP.SURG.CON ---
History of Present Illness *Admission Date: 02/21/23 *History of present illness: Patient is a 72-year-old female who lives in [place] with her primary care provider being Dr. Noel Marquez. She has a history of pulmonary hypertension, coronary artery stenosis, carotid artery stenosis, chronic peripheral arterial disease, renal artery stenosis, subclavian stenosis who presented to the emergency department overnight due to a several week history of progressive weakness and shortness of breath. She is on 81 mg aspirin, Xarelto for history of stents. She has a history of chronic back pain and has extensively been seen and evaluated by pain management and has a pain pump. She is also on Naprosyn. Evaluation in the emergency department revealed a hemoglobin of 4.4. Repeat for confirmation revealed hemoglobin of 4.2. Stool for occult blood was positive. She had a hemoglobin of 10 in October of this year. She had a CT scan of the abdomen and pelvis performed which revealed small high attenuation left pleural effusion. This is suspicious for hemothorax. No intra-abdominal or intrapelvic hematoma or hemorrhage. Nonspecific appearance of the bowel which could correlate with enterocolitis. . . Moderate sigmoid diverticulosis without diverticulitis. She was transfused 1 unit of packed red blood cells with posttransfusion hemoglobin of 5.2. Surgical consultation was obtained for profound anemia . Patient had a colonoscopy with Dr. Cotton on 03/15/2020 and she had left-sided diverticulosis and 10 large granular flat adenomatous polyps. Pathology reveals the majority of these to be tubular adenomas. He has performed subsequent colonoscopies in [place] which have been unremarkable. She denies any history of ulcer disease. Has never had any coffee-ground emesis. She denies any melena or hematochezia symptoms. Patient has had several appreciable falls over the past few weeks to months. [facility] Disclaimer: The information contained in this section may have been updated after the patient was seen, as this information can be updated by other users. Medical History (Updated 02/21/23 @ 04:29 by Lars Ingram MD (ED)) Angina pectoris Chronic back pain Dyspnea HTN (hypertension) PAD (peripheral artery disease) JACOBO (renal artery stenosis) Traumatic ecchymosis of left upper arm Surgical History History of section History of cholecystectomy History of hysterectomy History of knee replacement Family History Other Family history of TIAs Family history of cancer Family history of myocardial infarction Social History (Updated 02/21/23 @ 05:07 by Gissell Champion RN) Smoking Status: Current every day smoker tobacco type: cigarettes packs per day: 1 alcohol intake: never substance use type: denies use current occupational status: retired Travel in the last 8 weeks: None housing: house marital status: education level: high school current occupational exposures/hazards: No caffeine: Yes special vanessa needs: No agree to transfusion: No do you feel safe at home: Yes victim of physical abuse: No victim of emotional abuse: No victim of sexual abuse: No would you like helpful sources: No Review of Systems Constitutional Constitutional: Reports weakness *Neurologic Neurologic: Reports system reviewed and no additional complaints, except as documented and Reports weakness Meds Home Medications and Allergies Home Medications Medication Instructions Recorded Confirmed Type doxepin 150 mg capsule 150 mg PO DAILY Pain 03/12/20 02/21/23 History naproxen 500 mg tablet 500 mg PO BID Pain 03/12/20 02/21/23 History zolpidem 12.5 mg tablet,extended 12.5 mg PO HS sleep 03/12/20 02/21/23 History release,multiphase diazepam 5 mg tablet 5 mg PO TID PRN Anxiety 03/25/21
--- NOTE | 2023-02-21 10:08 | CT_ITS ---
PROCEDURE INFORMATION: Exam: CTA Chest With Contrast Exam date and time: 02/21/2023 11:38 AM Age: 72 years old Clinical indication: Shortness of breath and other: Anemia; Additional info: Anemia, left effusion TECHNIQUE: Imaging protocol: Computed tomographic angiography of the chest with contrast. Exam focused on the arteries. 3D rendering (Not supervised by radiologist): MIP and/or 3D reconstructed images were created by the technologist. Radiation optimization: All CT scans at this facility use at least one of these dose optimization techniques: automated exposure control; mA and/or kV adjustment per patient size (includes targeted exams where dose is matched to clinical indication); or iterative reconstruction. Contrast material: ISOVUE; Contrast volume: 100 ml; Contrast route: INTRAVENOUS (IV); REPORTING DATA: Count of CT and Cardiac NM exams in prior 12 months: This patient has received [address] and 0 known cardiac nuclear medicine studies in the 12 months prior to the current study. COMPARISON: CR XR CHEST PORTABLE 02/21/2023 1:43 AM FINDINGS: Pulmonary arteries: Normal. No pulmonary emboli. Great vessels off aortic arch: Left common carotid arterial ostial stent Aorta: Atherosclerotic calcification of thoracoabdominal aorta and coronary arteries. Lungs: Chronic left lung volume loss. Chronic subsegmental atelectasis. Benign calcified granuloma in left lower lobe. Pleural spaces: Chronic left pleural thickening with chronic subsegmental atelectasis. Chronic left hemithoracic volume loss with mild mediastinal shift to left. Heart: Unremarkable. No cardiomegaly. No pericardial effusion. Lymph nodes: Unremarkable. No enlarged lymph nodes. Bones/joints: Age-indeterminate T11 anterior vertebral body height loss with chronic mild bony retropulsion. Degenerative changes at multiple levels of thoracolumbar spine. Soft tissues: Unremarkable. IMPRESSION: 1. No central or segmental pulmonary arterial embolism by CT criteria. 2. Chronic left pleural thickening with subsegmental atelectasis and volume loss.
--- NOTE | 2023-02-21 11:16 | EXP.PN ---
Subjective *Date: 02/21/23 *Time: 11:25 Interval history: Patient admits to taking Xarelto recommended by alligator shear operator after most recent cardiac stent placement. Denies hematemesis, coffee-ground emesis, hematochezia, or melena issues. States last colonoscopy occurred spring 2021 with only polyps noted. States her food court team member is Dr. Cotton. Denies history of CHF, yet BNP over 3000 at time of admission with pleural effusion noted on admission imaging. Also suffering from slight respiratory distress after 1 unit packed RBC transfusion today. Daughter present in room at time of evaluation by Dr. Sutherland. Daughter states patient was confused and following with extremities yesterday. Daughter states patient's confusion resolved, patient more alert, with better extremity motor control after 1 unit packed RBC transfusion overnight. Exam Data for Last 24 hours Vital signs and Labs for Last 24 Hours: Temp Pulse Resp BP Pulse Ox 98.4 F 64 17 149/60 H 100 02/21/23 10:30 02/21/23 10:30 02/21/23 10:30 02/21/23 10:30 02/21/23 10:30 Laboratory Results - last 24 hr 02/21/23 00:53: WBC 5.2, RBC 2.53 L, Hgb 4.4 L*, Hct 15.7 L*, MCV 62.0 L, MCH 17.5 L, MCHC 28.2 L, RDW 18.2 H, Plt Count 218, MPV 9.2, Neut % (Auto) 72.0, Lymph % (Auto) 19.0, Bailey % (Auto) 5.9, Eos % (Auto) 2.8, Baso % (Auto) 0.4, Neut # (Auto) 3.8, Lymph # (Auto) 1.0, Bailey # (Auto) 0.3, Eos # (Auto) 0.1, Baso # (Auto) 0.0 02/21/23 00:53: Sodium 137, Potassium 3.0 L, Chloride 102, Carbon Dioxide 27, Anion Gap 11.0, BUN 15, Creatinine 0.70, Estimated Creat Clear 68, Estimated GFR 82, Est GFR ( Amer) 100, Glucose 108 H, Calcium 8.0 L, Total Bilirubin 0.3, Direct Bilirubin 0.0, Conjugated Bilirubin 0.0, Indirect Bilirubin 0.3, Unconjugated Bilirubin 0.4, AST 32, ALT 16, Alkaline Phosphatase 66, Troponin I < 0.01, C-Reactive Protein 1.1, NT-Pro-B Natriuret Pep 3280 H, Total Protein 5.4 L, Albumin 3.1 L, TSH 1.36, Thyroxine (T4) 14.7 H 02/21/23 00:53: ESR 77 H 02/21/23 00:53: Procalcitonin 0.033 02/21/23 01:00: Urine Color Yellow, Urine Appearance Clear, Urine pH 5.5, Ur Specific [place] 1.020, Urine Protein Negative, Urine Glucose (UA) Negative, Urine Ketones Negative, Urine Blood Negative, Urine Nitrate Negative, Urine Bilirubin Negative, Urine Urobilinogen 2.0, Ur Leukocyte Esterase Negative, Urine RBC None, Urine WBC Occasional, Ur Squamous Epith Cells 3-5, Urine Bacteria Trace, Hyaline Casts Occasional 02/21/23 01:00: SARS-CoV-2 (PCR) Not detected, Influenza A Untype (PCR) Not detected, Influenza Type B (PCR) Not detected 02/21/23 01:35: Blood Type A Positive, Antibody Screen Negative, Crossmatch (AHG) See Detail 02/21/23 02:18: Stool Occult Blood Positive A 02/21/23 03:37: Troponin I < 0.01 02/21/23 03:37: WBC 4.9, RBC 2.47 L, Hgb 4.2 L*, Hct 15.4 L*, MCV 62.4 L, MCH 17.2 L, MCHC 27.6 L, RDW 18.2 H, Plt Count 198, MPV 9.8, Neut % (Auto) 71.2, Lymph % (Auto) 20.1, Bailey % (Auto) 5.9, Eos % (Auto) 2.5, Baso % (Auto) 0.3, Neut # (Auto) 3.5, Lymph # (Auto) 1.0, Bailey # (Auto) 0.3, Eos # (Auto) 0.1, Baso # (Auto) 0.0 02/21/23 03:37: Iron 23 L, TIBC 369, Iron Saturation 6.54781 L, Ferritin 3.64 L, Vitamin B12 344 02/21/23 03:37: Blood Type Confirm A Positive 02/21/23 07:12: Troponin I < 0.01 02/21/23 07:12: WBC 4.6 L, RBC 2.68 L, Hgb 5.2 L* D, Hct 17.7 L*, MCV 66.0 L, MCH 19.5 L, MCHC 29.5 L, RDW 20.1 H, Plt Count 189, MPV 9.4, Neut % (Auto) 65.3, Lymph % (Auto) 24.3, Bailey % (Auto) 6.7, Eos % (Auto) 3.4, Baso % (Auto) 0.3, Neut # (Auto) 3.0, Lymph # (Auto) 1.1, Bailey # (Auto) 0.3, Eos # (Auto) 0.2, Baso # (Auto) 0.0 02/21/23 07:12: PT 10.8, INR 1.00 02/21/23 07:12: Sodium 137, Potassium 3.3 L, Chloride 105, Carbon Dioxide 27, Anion Gap 8.3, BUN 14, Creatinine 0.60, Estimated Creat Clear 68, Estimated GFR 99, Est GFR ( Amer) 119, Glucose 94, Calcium 7.8 L, Phosphorus 4.3, Magnesium 1.9, Total Bilirubin < 0.1 L, AST 18 D, ALT 11 L D, Alkaline Phosphatase 59, Total Protein 4.9 L, Albumin 2.7
[2023-02-21 12:38] LABS: Troponin I < 0.01 ng/ml (0.00-0.034)
--- NOTE | 2023-02-21 17:31 | PC.NURSE ---
Pt tolerated additional 2 units of blood. No complaints stated. F/c draining to bedside with 2700 urine output. Pt ambulated this evening to BR and had one BM not observed by staff. Pt educated to not flush so staff can assess stool for blood. Family at bedside. call light within reach.
[2023-02-21 17:33] LABS: Basophils % 0.4 % (0.1-2.0); Eosinophils # 0.1 K/mm3 (0.0-0.4); Hematocrit 28.9 % (37.0-47.0); Lymphocytes # 1.3 K/mm3 (0.7-4.5); Lymphocytes % 20.7 % (10-50); Mean Corpuscular HGB Conc 30.9 g/dL (31.8-35.4); Mean Corpuscular Hemoglobin 22.7 pg (27.0-31.2); Mean Corpuscular Volume 73.3 fl (81-99); Mean Platelet Volume 8.3 fl (7.4-10.4); Monocytes # 0.4 K/mm3 (0.1-1.0); Monocytes % 6.2 % (1.7-9.3); Neutrophils # 4.4 K/mm3 (1.8-7.8); Neutrophils % 70.6 % (37.0-80.0); Platelet Count 182 K/mm3 (142-424); Red Blood Count 3.95 M/mm3 (4.20-5.40); Red Cell Distribution Width 22.8 % (11.5-17.5); White Blood Count 6.2 K/mm3 (4.8-10.8)
[2023-02-21 17:39] LABS: Hemoglobin 8.9 g/dL (12.2-16.2)
[2023-02-21 18:02] LABS: Troponin I < 0.01 ng/ml (0.00-0.034)
[2023-02-21 23:53] LABS: Troponin I < 0.01 ng/ml (0.00-0.034)
[2023-02-22] VITALS (25 sets, daily range): BP systolic 90–169; BP diastolic 41–72; PULSE 60–97; RESP 14–21; TEMP 36.4–37; O2SAT 87–98; BMI 28.3
[2023-02-22 06:16] LABS: Basophils % 0.4 % (0.1-2.0); Eosinophils # 0.3 K/mm3 (0.0-0.4); Eosinophils % 5.5 % (0.1-12.0); Hematocrit 26.1 % (37.0-47.0); Hemoglobin 8.1 g/dL (12.2-16.2); Lymphocytes # 1.1 K/mm3 (0.7-4.5); Lymphocytes % 18.7 % (10-50); Mean Corpuscular HGB Conc 31.2 g/dL (31.8-35.4); Mean Corpuscular Hemoglobin 22.1 pg (27.0-31.2); Mean Platelet Volume 9.7 fl (7.4-10.4); Monocytes # 0.4 K/mm3 (0.1-1.0); Monocytes % 7.1 % (1.7-9.3); Neutrophils # 4.1 K/mm3 (1.8-7.8); Neutrophils % 68.2 % (37.0-80.0); Platelet Count 189 K/mm3 (142-424); Red Blood Count 3.67 M/mm3 (4.20-5.40); Red Cell Distribution Width 22.6 % (11.5-17.5)
--- NOTE | 2023-02-22 06:19 | EXP.SURG.PN ---
Subjective Narrative: Patient feels well. No complaints. Transfused 3 units packed red blood cells with good response with yesterday evening's hemoglobin of 8.9. No clinical bleeding. Made n.p.o. after midnight for potential EGD if indicated. Exam Data for Last 24 hours Vital signs and Labs for Last 24 Hours: Temp Pulse Resp BP Pulse Ox FiO2 98.2 F 65 18 147/71 H 90 L 28 02/22/23 04:00 02/22/23 04:00 02/22/23 04:00 02/22/23 04:00 02/22/23 04:00 02/21/23 21:25 Laboratory Results - last 24 hr 02/21/23 01:35: Blood Type A Positive, Antibody Screen Negative, Crossmatch (AHG) See Detail 02/21/23 03:37: Ferritin 3.64 L, Vitamin B12 344 02/21/23 07:12: Troponin I < 0.01 02/21/23 07:12: WBC 4.6 L, RBC 2.68 L, Hgb 5.2 L* D, Hct 17.7 L*, MCV 66.0 L, MCH 19.5 L, MCHC 29.5 L, RDW 20.1 H, Plt Count 189, MPV 9.4, Neut % (Auto) 65.3, Lymph % (Auto) 24.3, Maries % (Auto) 6.7, Eos % (Auto) 3.4, Baso % (Auto) 0.3, Neut # (Auto) 3.0, Lymph # (Auto) 1.1, Maries # (Auto) 0.3, Eos # (Auto) 0.2, Baso # (Auto) 0.0 02/21/23 07:12: PT 10.8, INR 1.00 02/21/23 07:12: Sodium 137, Potassium 3.3 L, Chloride 105, Carbon Dioxide 27, Anion Gap 8.3, BUN 14, Creatinine 0.60, Estimated Creat Clear 68, Estimated GFR 99, Est GFR ( Amer) 119, Glucose 94, Calcium 7.8 L, Phosphorus 4.3, Magnesium 1.9, Total Bilirubin < 0.1 L, AST 18 D, ALT 11 L D, Alkaline Phosphatase 59, Total Protein 4.9 L, Albumin 2.7 L D, Globulin 2.2, Albumin/Globulin Ratio 1.2 02/21/23 12:07: Troponin I < 0.01 02/21/23 17:10: Troponin I < 0.01 02/21/23 17:10: WBC 6.2 D, RBC 3.95 L D, Hgb 8.9 L D, Hct 28.9 L, MCV 73.3 L, MCH 22.7 L, MCHC 30.9 L, RDW 22.8 H, Plt Count 182, MPV 8.3, Neut % (Auto) 70.6, Lymph % (Auto) 20.7, [place] % (Auto) 6.2, Eos % (Auto) 2.0, Baso % (Auto) 0.4, Neut # (Auto) 4.4, Lymph # (Auto) 1.3, Maries # (Auto) 0.4, Eos # (Auto) 0.1, Baso # (Auto) 0.0 02/21/23 23:15: Troponin I < 0.01 I & O for Last 24 hours: Intake & Output 02/19/23 02/20/23 02/21/23 02/22/23 11:59 11:59 11:59 11:59 Intake Total 250 / 250 1180 / 1180 Output Total 1500 / 1500 1800 / 1800 Balance -1250 / -1250 -620 / -620 Weight 185 lb 2 oz 198 lb 6 oz Progress Note: A&P Assessment and plan (1) Profound anemia: Status: Acute Assessment and plan: As anticipated possibly proceeding with EGD for diagnostic purposes to work-up anemia with Hemoccult positive stool. Patient seems somewhat hesitant as she states that she has an appointment with her primary care provider tomorrow and her daughter has an appointment with her swimming coach or instructor today and is planning to make follow-up appointment for the patient. If her hemoglobin is stable this morning with no signs of clinical bleeding this may be a reasonable plan. (2) Dyspnea: Status: Acute (3) HTN (hypertension): Status: Acute (4) Coronary artery stenosis: Status: Chronic (5) Carotid artery stenosis: Status: Chronic (6) HLD (hyperlipidemia): Status: Chronic (7) Depression: Status: Acute
[2023-02-22 06:24] LABS: Chloride 103 mmol/L (98-107)
[2023-02-22 06:25] LABS: Potassium 3.7 mmoL/L (3.5-5.1); Sodium 137 mmol/L (136-145)
[2023-02-22 06:27] LABS: Blood Urea Nitrogen 11 mg/dl (7-17); Creatinine Clearance Estimated 73 mL/min (50-200); Estimated Glomerular Filt Rate 82 ml/min (>60); GFR (African American) 100 ML/MIN (>60)
[2023-02-22 06:28] LABS: Anion Gap 10.7 mEq/L (5-15); Calcium 8.2 mg/dl (8.4-10.2); Carbon Dioxide 27 mmol/L (22.0-30.0); Glucose 87 mg/dl (74-100); Magnesium 1.8 mg/dl (1.6-2.3)
--- NOTE | 2023-02-22 08:01 | PC.NURSE ---
Rl gone to OR for endo.
--- NOTE | 2023-02-22 08:42 | HMH.SCOPE ---
Procedure: Date: 02/22/23 Patient Date of :: 1950 Procedure Performed:: Esophagogastroduodenoscopy with biopsies Indications:: Patient is a 72-year-old female who lives in [place] with her primary care provider being Dr. Noel Marquez.? She has a history of pulmonary hypertension, coronary artery stenosis, carotid artery stenosis, chronic peripheral arterial disease, renal artery stenosis, subclavian stenosis who presented to the emergency department overnight due to a several week history of progressive weakness and shortness of breath.? She is on 81 mg aspirin, Xarelto for history of stents.? She has a history of chronic back pain and has extensively been seen and evaluated by pain management and has a pain pump.? She is also on Naprosyn.? Evaluation in the emergency department revealed a hemoglobin of 4.4.? Repeat for confirmation revealed hemoglobin of 4.2.? Stool for occult blood was positive.? She had a hemoglobin of 10 in October of this year.? She had a CT scan of the abdomen and pelvis performed which revealed small high attenuation left pleural effusion.? This is suspicious for hemothorax.? No intra-abdominal or intrapelvic hematoma or hemorrhage.? Nonspecific appearance of the bowel which could correlate with enterocolitis. . . Moderate sigmoid diverticulosis without diverticulitis. ? She was transfused 1 unit of packed red blood cells with posttransfusion hemoglobin of 5.2.? Surgical consultation was obtained for profound anemia .? Patient had a colonoscopy with Dr. Cotton on 03/15/2020 and she had left-sided diverticulosis and 10 large granular flat adenomatous polyps.? Pathology reveals the majority of these to be tubular adenomas.? He has performed subsequent colonoscopies in [place] which have been unremarkable.? She denies any history of ulcer disease.? Has never had any coffee-ground emesis.? She denies any melena or hematochezia symptoms.? Patient has had several appreciable falls over the past few weeks to months. She was seen in surgical consultation on 02/21/2023. She had no evidence of any clinical acute GI bleeding. Given the findings on CT of the abdomen she underwent CT scan of the chest which revealed no evidence of any hemothorax but some pleural thickening. She was transfused a total of 3 units of packed red blood cells with hemoglobin of 8.9. Discussion was held with the patient regarding possible EGD the following morning. She did show some decrease in hemoglobin to 8.1. Therefore plan was made for upper endoscopy prior to discharge as she has been on Xarelto. Of note, the patient does not regularly take any medication for ulcer disease. Performing Provider:: Carlton Robles MD Referring Provider:: . Sedation:: MAC sedation Procedure:: Patient history was obtained and appropriate physical examination was performed. Patient's medications and allergies were reviewed. Informed consent was obtained after explaining the benefits, alternatives, and risks of the procedure including, but not limited to, bleeding, perforation, missed lesions, and adverse reaction to anesthesia medications. Patient was transported to endoscopy procedure room. Patient was connected to monitoring devices. Throughout the procedure the patient's blood pressure, pulse, and oxygen saturations were monitored continuously. Patient identification and planned procedure were verified by the staff. Patient was positioned in lateral decubitus position. Olympus endoscope was inserted via the oropharynx. Esophagus was cannulated. There was some mild tortuosity to the esophagus. Gastroesophageal junction was encountered at approximately 35 cm from the incisors. Stomach was cannulated and insufflated. Retroflexion did not give clear visualization of the gastroesophageal junction so possible hiatal hernia was unable to be assessed. There was some diffuse gastropathy. In the prepyloric location there were a couple of small nonbleeding
--- NOTE | 2023-02-22 08:51 | EXP.ANES.CKL ---
[facility] Disclaimer: The information contained in this section may have been updated after the patient was seen, as this information can be updated by other users. Medical History (Updated 02/21/23 @ 04:29 by Lars Ingram MD (ED)) Angina pectoris Chronic back pain Dyspnea HTN (hypertension) PAD (peripheral artery disease) JACOBO (renal artery stenosis) Traumatic ecchymosis of left upper arm Surgical History History of section History of cholecystectomy History of hysterectomy History of knee replacement Family History Other Family history of TIAs Family history of cancer Family history of myocardial infarction Social History (Updated 02/21/23 @ 05:07 by Gissell Champion RN) Smoking Status: Current every day smoker tobacco type: cigarettes packs per day: 1 alcohol intake: never substance use type: denies use current occupational status: retired Travel in the last 8 weeks: None housing: house marital status: education level: high school current occupational exposures/hazards: No caffeine: Yes special vanessa needs: No agree to transfusion: No do you feel safe at home: Yes victim of physical abuse: No victim of emotional abuse: No victim of sexual abuse: No would you like helpful sources: No [facility] Anesthesia Checklist Patient Identification Patient Identification: Verbal (Name & ) Structural Data Admitted From: Inpatient Planned Operative Procedure/s: egd Consent for Planned Operative Procedure(s) Verified: Yes Additional verifications Anesthesia Reactions: No Hx Blood Transfusions: No Blood Transfusion Reaction: No Airway Assessment C-Spine Mobility Assessed: Yes TMJ Mobility Assessed: Yes Dentition: Edentulous Neurological Assessment Level of Consciousness: Awake, Alert and Appropriate Anesthesia Plan Anesthesia Risk discussed: Yes Anesthesia Plan: Verified ASA Class: III Anesthesia Type: MAC
--- NOTE | 2023-02-22 10:32 | XR_ITS ---
FINAL REPORT CLINICAL HISTORY: resp distress COMPARISON: 02/21/2023 FINDINGS: Heart size is upper limits of normal. There is a left subclavian stent present. The mediastinum is normal. There are chronic changes in the lung bases. There is increased opacity in the mid left lung slightly more prominent than noted on the prior exam of 02/21 that may represent a developing infiltrate. There are no pleural effusions. IMPRESSION: Chronic changes in the lung base with increased opacity in the left mid lung field slightly more prominent than noted on the prior exam of February 21. This may represent a developing infiltrate. Reviewed, Interpreted and Dictated by Shaan Cerrato MD Transcribed by Saray Reynoso Authenticated and [facility]
--- NOTE | 2023-02-22 10:46 | EXP.PN ---
Subjective *Date: 02/22/23 *Time: 10:48 Interval history: Patient still suffering from some shortness of breath, resolved with 3 L O2 nasal cannula. Patient states lower extremity edema has resolved over past 24 hours. Negative fluid balance 1.8 L over past 24 hours. Echocardiogram done today with results currently pending. Exam Data for Last 24 hours Vital signs and Labs for Last 24 Hours: Temp Pulse Resp BP Pulse Ox FiO2 98.5 F 64 18 143/63 H 92 L 28 02/22/23 09:45 02/22/23 09:45 02/22/23 09:45 02/22/23 09:45 02/22/23 09:45 02/21/23 21:25 Laboratory Results - last 24 hr 02/21/23 01:35: Blood Type A Positive, Antibody Screen Negative, Crossmatch (AHG) See Detail 02/21/23 12:07: Troponin I < 0.01 02/21/23 17:10: Troponin I < 0.01 02/21/23 17:10: WBC 6.2 D, RBC 3.95 L D, Hgb 8.9 L D, Hct 28.9 L, MCV 73.3 L, MCH 22.7 L, MCHC 30.9 L, RDW 22.8 H, Plt Count 182, MPV 8.3, Neut % (Auto) 70.6, Lymph % (Auto) 20.7, [place] % (Auto) 6.2, Eos % (Auto) 2.0, Baso % (Auto) 0.4, Neut # (Auto) 4.4, Lymph # (Auto) 1.3, [place] # (Auto) 0.4, Eos # (Auto) 0.1, Baso # (Auto) 0.0 02/21/23 23:15: Troponin I < 0.01 02/22/23 05:43: WBC 6.0, RBC 3.67 L, Hgb 8.1 L, Hct 26.1 L, MCV 71.0 L, MCH 22.1 L, MCHC 31.2 L, RDW 22.6 H, Plt Count 189, MPV 9.7, Neut % (Auto) 68.2, Lymph % (Auto) 18.7, [place] % (Auto) 7.1, Eos % (Auto) 5.5, Baso % (Auto) 0.4, Neut # (Auto) 4.1, Lymph # (Auto) 1.1, [place] # (Auto) 0.4, Eos # (Auto) 0.3, Baso # (Auto) 0.0 02/22/23 05:43: Sodium 137, Potassium 3.7, Chloride 103, Carbon Dioxide 27, Anion Gap 10.7, BUN 11, Creatinine 0.70, Estimated Creat Clear 73, Estimated GFR 82, Est GFR ( Amer) 100, Glucose 87, Calcium 8.2 L, Magnesium 1.8 I & O for Last 24 hours: Intake & Output 02/19/23 02/20/23 02/21/23 02/22/23 23:59 23:59 23:59 23:59 Intake Total 970 / 1430 460 / 460 Output Total 2900 / 2900 500 / 500 Balance -1930 / -1470 -40 / -40 Weight 83.971 kg 89.981 kg *Routine HEENT Exam Head: Present normocephalic Eye: Present EOMI and normal accommodation ENT: Present mucous membranes moist *Routine Neck Exam Neck: Present supple, full ROM and JVD *Routine Respiratory Exam Respiratory: Present decreased breath sounds; Absent accessory muscle use *Routine Cardiovascular Exam Cardiovascular: Present RRR, Normal S1 and Normal S2 *Routine Abdominal Exam Abdominal: Present soft and normoactive bowel sounds; Absent rebound or guarding *Routine Rectal Exam Comments: deffered *Routine Exam Comments: deferred *Routine Extremities Exam Extremities: Present full ROM *Routine Skin Exam Skin: Present intact and normal turgor Assessment and Plan *Assessment and plan (1) Anemia, blood loss: Status: Acute Category: Medical Code(s): D50.0 - Iron deficiency anemia secondary to blood loss (chronic) (2) Dyspnea: Status: Acute Qualifiers: Dyspnea type: shortness of breath Qualified Code(s): R06.02 - Shortness of breath Category: Medical Code(s): R06.00 - Dyspnea, unspecified (3) Profound anemia: Status: Acute Qualifiers: Anemia type: unspecified type Qualified Code(s): D64.9 - Anemia, unspecified Category: Medical Code(s): D64.9 - Anemia, unspecified (4) HTN (hypertension): Status: Acute Qualifiers: Hypertension type: primary hypertension Qualified Code(s): I10 - Essential (primary) hypertension Category: Medical Code(s): I10 - Essential (primary) hypertension (5) Coronary artery stenosis: Status: Chronic Category: Medical Code(s): I25.10 - Atherosclerotic heart disease of [place] coronary artery without angina pectoris (6) Carotid artery stenosis: Status: Chronic Qualifiers: Laterality: bilateral Qualified Code(s): I65.23 - Occlusion and stenosis of bilateral carotid arteries Category: Medical Code(s): I65.29 - Occlusion and stenosi
[2023-02-22 16:56] LABS: Basophils % 0.4 % (0.1-2.0); Eosinophils # 0.2 K/mm3 (0.0-0.4); Eosinophils % 2.4 % (0.1-12.0); Hematocrit 30.7 % (37.0-47.0); Lymphocytes # 1.1 K/mm3 (0.7-4.5); Lymphocytes % 13.5 % (10-50); Mean Corpuscular HGB Conc 30.6 g/dL (31.8-35.4); Mean Platelet Volume 9.8 fl (7.4-10.4); Monocytes # 0.6 K/mm3 (0.1-1.0); Monocytes % 6.7 % (1.7-9.3); Neutrophils # 6.3 K/mm3 (1.8-7.8); Platelet Count 226 K/mm3 (142-424); Red Blood Count 4.27 M/mm3 (4.20-5.40); White Blood Count 8.2 K/mm3 (4.8-10.8)
[2023-02-22 16:59] LABS: Hemoglobin 9.4 g/dL (12.2-16.2)
--- NOTE | 2023-02-22 21:44 | PC.NURSE ---
pt c/o clear drainage from nose/throat. gave curlysin.
--- NOTE | 2023-02-22 22:39 | PC.NURSE ---
gave pt tylenol 650mg r/t back pain
[2023-02-23] VITALS: PULSE 60
[2023-02-23 04:00] VITALS: BP 132/61; PULSE 60; PULSE 64; RESP 18; TEMP 36.8; O2SAT 91; BMI 29.2
[2023-02-23 05:47] VITALS: PULSE 66; PULSE 70; O2SAT 86
[2023-02-23 06:05] LABS: Basophils % 0.5 % (0.1-2.0); Eosinophils # 0.3 K/mm3 (0.0-0.4); Monocytes # 0.6 K/mm3 (0.1-1.0); Neutrophils # 4.5 K/mm3 (1.8-7.8); Red Cell Distribution Width 23.3 % (11.5-17.5)
[2023-02-23 06:25] LABS: Chloride 98 mmol/L (98-107); Sodium 138 mmol/L (136-145)
[2023-02-23 06:28] LABS: Blood Urea Nitrogen 15 mg/dl (7-17); Creatinine Clearance Estimated 75 mL/min (50-200); Estimated Glomerular Filt Rate 71 ml/min (>60); GFR (African American) 86 ML/MIN (>60); Potassium 3.1 mmoL/L (3.5-5.1)
[2023-02-23 06:29] LABS: Anion Gap 10.1 mEq/L (5-15); Calcium 8.1 mg/dl (8.4-10.2); Carbon Dioxide 33 mmol/L (22.0-30.0); Glucose 102 mg/dl (74-100); Magnesium 1.8 mg/dl (1.6-2.3)
[2023-02-23 06:38] LABS: Eosinophils % 4.3 % (0.1-12.0); Hemoglobin 8.3 g/dL (12.2-16.2); Lymphocytes % 15.4 % (10-50); Mean Corpuscular HGB Conc 30.7 g/dL (31.8-35.4); Mean Corpuscular Volume 71.6 fl (81-99); Mean Platelet Volume 7.9 fl (7.4-10.4); Monocytes % 9.3 % (1.7-9.3); Neutrophils % 70.5 % (37.0-80.0); Platelet Count 188 K/mm3 (142-424); Red Blood Count 3.77 M/mm3 (4.20-5.40); White Blood Count 6.3 K/mm3 (4.8-10.8)
[2023-02-23 07:25] VITALS: BP 129/56; PULSE 67; RESP 16; TEMP 36.9; O2SAT 92
[2023-02-23 08:00] VITALS: PULSE 70
[2023-02-23 09:51] VITALS: BMI 29.2
--- NOTE | 2023-02-23 10:17 | EXP.CARD.CON ---
History of Present Illness History of Present Illness Consult date: 02/23/23 Requesting physician: Raudel Sutherland Consult reason: congestive heart failure and shortness of breath Chief complaint: SOA, CHF, anemia Additional Medical History:: 1. Carotid artery disease with right carotid bruit A. Carotid angiogram, 05/2021, patent common carotid arteries with angiographically indeterminate bilateral internal carotid artery calcification and stenosis. 2. JEFFREY, currently not using BiPAP 3. Hypertension with hypertensive heart disease A. Echocardiogram, 02/22/2023, normal LV size, concentric LVH with grade 2 diastolic dysfunction. LVEF 60-65%. RVSP 36 mmHg 4. Tobacco use, continued previously smoked up to 4 to 5 packs/day, started at age 17 A. COPD with pulmonary hypertension 5. History of cardiac cath, 2012, mild plaque with no significant CAD, EF 60-65% A. Lexiscan Myoview, 2020, no ischemia with EF 55% 6. Chronic back pain due to previous spinal injury 7. Hyperlipidemia A. On statin therapy 8. Left subclavian artery stenosis, status post stenting with 3 bare-metal stents, 05/2021 9. Renal artery stenosis A. Renal angiogram, 2021, right renal artery singular with 20% ostial stenosis. Left renal artery has a dual supply with superior branch supplying 80% of the kidney with 10 to 20% stenosis with inferior branch widely patent. History of present illness: Ms Leblanc is a 72 year old female who presented to the ER with complaints of weakness and shortness of breath that has been progressing over the past few weeks. Work-up in the ER, patient found to have Hgb 4.4/ Hct 15.7. Occult stool +. Sed rate was elevated at 77. Chemistry was unremarkable, except for mild hypokalemia of 3.0. proBNP was elevated 3370. CXR demonstrated fairly clear lung gordillo with small left pleural effusion. CT abdomen/pelvis with contrast reported small pleural effusion vs hemothorax and?nonspecific appearance of the bowel that could correlate with enterocolitis in the appropriate clinical setting, moderate sigmoid diverticulosis without diverticulitis which could be sources of GI hemorrhage.?T&S was ordered. Discussed case with Dr. Ingram, agree with need for admission for further evaluation of profound anemia and possible source. The above per Dr. Sutherland, Hospitalist Cardiology consulted for concern for heart failure in patient with improving but continued shortness of air and need for oxygen use despite IV Lasix and blood transfusions. Long-term smoker with history of pulmonary hypertension and records. No prior right heart catheterization noted. Echocardiogram this admission shows evidence of biventricular CHF due to mild RV enlargement, elevated right ventricular systolic pressure 36 mmHg along with grade 2 diastolic dysfunction of left ventricle. Discussed treatment using diuretics with the patient and need for further outpatient evaluation with pulmonary and possible right heart catheterization Regarding the patient's anemia outpatient work-up will be pursued. She has previously been on anticoagulation therapy due to peripheral arterial disease (subclavian artery stenosis, carotid artery disease as well as renal artery stenosis) [facility] Disclaimer: The information contained in this section may have been updated after the patient was seen, as this information can be updated by other users. Medical History (Updated 02/23/23 @ 10:35 by LUMA Pedro) Angina pectoris Chronic back pain Dyspnea HTN (hypertension) PAD (peripheral artery disease) JACOBO (renal artery stenosis) Traumatic ecchymosis of left upper arm Surgical History History of section History of cholecystectomy History of hysterectomy History of knee replacement Family History Other Family history of TIAs Family history of cancer Family history of myocardial infarction Social H
[2023-02-23 10:52] VITALS: O2SAT 88
--- NOTE | 2023-02-23 10:57 | PC.NURSE ---
PT AMBULATING IN ROOM ON ROOM AIR, O2 DOWN TO 88%.
--- NOTE | 2023-02-23 10:58 | EXP.DC.SUM ---
General Admission date:: 02/21/23 HPI HPI HPI: Patient is a 72-year-old female who lives in [place] with her primary care provider being Dr. Noel Marquez. She has a history of pulmonary hypertension, coronary artery stenosis, carotid artery stenosis, chronic peripheral arterial disease, renal artery stenosis, subclavian stenosis who presented to the emergency department overnight due to a several week history of progressive weakness and shortness of breath. She is on 81 mg aspirin, Xarelto for history of stents. She has a history of chronic back pain and has extensively been seen and evaluated by pain management and has a pain pump. She is also on Naprosyn. Evaluation in the emergency department revealed a hemoglobin of 4.4. Repeat for confirmation revealed hemoglobin of 4.2. Stool for occult blood was positive. She had a hemoglobin of 10 in October of this year. She had a CT scan of the abdomen and pelvis performed which revealed small high attenuation left pleural effusion. This is suspicious for hemothorax. No intra-abdominal or intrapelvic hematoma or hemorrhage. Nonspecific appearance of the bowel which could correlate with enterocolitis. . . Moderate sigmoid diverticulosis without diverticulitis. She was transfused 1 unit of packed red blood cells with posttransfusion hemoglobin of 5.2. Surgical consultation was obtained for profound anemia . Patient had a colonoscopy with Dr. Cotton on 03/15/2020 and she had left-sided diverticulosis and 10 large granular flat adenomatous polyps. Pathology reveals the majority of these to be tubular adenomas. He has performed subsequent colonoscopies in [place] which have been unremarkable. She denies any history of ulcer disease. Has never had any coffee-ground emesis. She denies any melena or hematochezia symptoms. Patient has had several appreciable falls over the past few weeks to months. Hospital Course Hospital Course Hospital Course: Patient admitted for weakness/confusion and diagnosed with symptomatic anemia. Patient guaiac positive during admission assessment. Patient had admission hemoglobin of 4.4, received 3 units packed RBCs. Patient's hemoglobin remained stable in 8.0 range after packed RBC blood transfusion. Patient underwent EGD by Dr. Robles (general surgeon) 02/22/2023, with no acute bleeding noted. Patient started on iron therapy by Dr. Sutherland at time of hospital discharge. Patient agreed to follow-up with PCP, gastroenterology, and general surgeon Dr. Robles after hospital discharge for continued symptomatic anemia management. Of special note, patient was taking Xarelto as outpatient prior to admission for peripheral artery disease management. Xarelto discontinued at time of admission, and will be discontinued after discharge from hospital. Given bleeding issues, patient's Naprosyn was also discontinued at time of hospital discharge. Given CAD and heart failure diagnosis, patient was continued on baby aspirin daily at time of hospital discharge. Patient developed respiratory distress during and after 3 unit packed RBC blood transfusion. Respiratory distress relieved with several doses IV Lasix. Echocardiogram showed grade 2 diastolic dysfunction and right-sided heart failure. Patient subsequently diagnosed with acute right-sided heart failure. Patient's record tabulating clerk Dr. Baxter was consulted, and agreed with diagnosis of acute right-sided heart failure. Dr. Baxter also agreed with discontinuation of Xarelto therapy. Patient will follow-up with cardiology as outpatient for cardiac catheterization evaluation. Patient's outpatient Lasix was doubled at time of hospital discharge. Patient started on potassium chloride daily as outpatient. During hospitalization patient was successfully weaned from 4 to 5 L nasal cannula to 1 L nasal cannula. Unfortunately, patient continued to suffer from desaturations on room air. O2sat of 88% or lower on RA at rest 02/23/23 o
--- NOTE | 2023-02-23 11:14 | HMH.PHAINT1 ---
Pharmacy Intervention Comments: MEDICATIONS COUNSELLED ON DISCHARGE: - FERROUS SULFATE (NAUSEA) - POTASSIUM (HEADACHE, MUSCLE PAIN) - LASIX (MEDICATION INCREASE TALKED ABOUT INCREASE IN URINATION) PATIENTS STATED THEY HAD NO QUESTIONS AT THIS TIME. -YANA FRANCO, PHARM STUDENT
--- NOTE | 2023-02-23 11:23 | SW/DCPLANNER ---
Addendum entered by Dina Bay 02/23/23 13:51: Shena ramirez/ [facility] stated that services for this patient will begin 02/25/23. Original Note: MD has ordered for patient to discharge home w/ home health services. Patient is agreeable to home health services and prefers to use [facility]. Patient information/order will be faxed today. Patient will discharge home today as well.
--- NOTE | 2023-02-25 13:16 | CARE MANAGER ---
Spoke with patient's daughter. She states she is doing well. They deny questions or concerns. ELIZABETH Rasheed
== END 2023-02-23 12:01 | disposition home health service (06) ==
LOC: ER 03:06 → 2ND 04:29
PROVIDERS: Nurse Practitioner; Surgery; Admitting Provider Internal Medicine; Emergency Provider Emergency Medicine; PCP Family Medicine; Visit Provider Internal Medicine
PROC: 0DJ08ZZ Inspection of Upper Intestinal Tract, Via Natural or Artificial Opening Endoscopic (ICD-10-PCS; CPT 43235; principal; 2023-02-22 08:30)
DX: D50.0 Iron deficiency anemia secondary to blood loss (chronic) (principal); I50.810 Right heart failure, unspecified; F17.210 Nicotine dependence, cigarettes, uncomplicated; I11.0 Hypertensive heart disease with heart failure; I70.1 Atherosclerosis of renal artery; I50.33 Acute on chronic diastolic (congestive) heart failure; Z79.899 Other long term (current) drug therapy; I65.23 Occlusion and stenosis of bilateral carotid arteries; I27.20 Pulmonary hypertension, unspecified; I25.10 Atherosclerotic heart disease of native coronary artery without angina pectoris
CPT/HCPCS: 36430; 43239; G0378; 36415; 51702; 70450; 71045; 71275; 74177; 80048; 80053; 80076; 81001; 82272; 82607; 82728; 83540; 83550; 83735; 83880; 84100; 84145; 84436; 84443; 84484; 85025; 85610; 85651; 86140; 86850; 87636; 88305; 88342; 93005; 93306; 94640; 94760; 94761; 99285; C9803; G0328; P9016; Q9967; U0003; U0005

== ENCOUNTER → 2023-03-11 09:46 | Outpatient (POV) | payer MEDICARE, SELFPAY ==
--- NOTE | 2023-03-11 10:21 | EXP.PAIN.PRO ---
Procedure Date: 03/11/23 Time: 10:21 Anesthesiologist:: Delia Mcfarland APRN Complications:: None Pre-procedure Diagnosis:: Degenerative disc disease of cervical and lumbar spine with cervical and lumbar radiculopathy symptoms Post-procedure Diagnosis:: Same Indications for Procedure:: Patient is a pleasant 72-year-old female who presents today for intrathecal pain pump adjustment and reprogram.? The patient is being treated for degenerative disc disease of cervical and lumbar spine with cervical and lumbar radiculopathy symptoms. She rates her pain today a 8 out of 10. Patient denies any new trauma or injury however she states she has been recently hospitalized. She states that her test examiner did take her off her Xarelto and naproxen related to low hemoglobin. She does also states she continues to have increased headaches and that she typically just uses a cold or warm compress. Patient denies trying any blxa-[id number]-givwxyy medications at this time. Patient is currently being managed with intrathecal morphine 2 mg/mL with a daily dose of 0.2498 mg/day. Patient denies any side effects from this medication. She is also managed with gabapentin 600 mg twice a day. Patient denies any side effects from this medication. Her [place] has been reviewed and appropriate. ? Physical exam General: Alert and oriented x3, no acute distress, pleasant and cooperative Lungs: Respirations even and unlabored, symmetrical chest expansion Eyes: PERRL Musculoskeletal: Flexion and extension of lumbar [spine] somewhat guarded secondary to pain, [antalgic gait noted] Neurological: Speech clear,? no gross sensory deficit Procedure Details:: Informed consent was obtained and the risk and benefits of the procedure were explained to the patient. Patient was taken to the procedure room where noninvasive monitoring was placed including noninvasive blood pressure cuff and pulse oximeter. Patient's pump was interrogated and was reprogrammed to morphine 0.2748 mg/day. The patient tolerated the procedure well with no complications. Plan and Disposition:: Patient tolerated her intrathecal increase with no complications. I will refill the patient's gabapentin 600 mg twice a day and provide a 1 month supply of this medication. Patient will return to clinic in 1 month for reevaluation of symptoms and plan of care. Patient has been instructed to contact the clinic with any concerns before the next appointment. Dr. Lopez has reviewed this note and agrees with this plan of care. This note was dictated using voice recognition software and make contain errors or omissions. -- It Is medically necessary for this patient to continue to have their intrathecal pump refilled at regular intervals. This patient had an intrathecal pain pump implanted after meeting criteria of chronic intractable pain for greater than 3 months and failing conservative treatments. Patient has committed and been compliant to the treatment plan and all planned follow up care. Since implantation of the intrathecal pain pump, the patient has had decreased pain and been more functional. Oral medications have been reduced including intake of oral opioids. Patient continues to do well with intrathecal therapy with decrease in pain symptoms and increase in functional status. Stopping intrathecal medications can lead to life threatening withdrawal, seizures, cardiac arrest, severe pain, and possible . Pumps that are not refilled at regular intervals can be damages and cause and need for replacement. We continually titrate dose and concentration to optimize pain relief and function. We are limited in concentration for certain drugs to safely deliver medications through the pump and stay within the recommendations from the Polyanalges[employer] Consensus Committee Guidelines. Depending on dose and concentration these pumps may need to be refilled sooner than 3 months as we titrate.
[2023-03-11 11:09] VITALS: BP 145/79; PULSE 103; RESP 20; O2SAT 98; BMI 25.7
== END | disposition home or self-care (01) ==
PROVIDERS: PCP Family Medicine; Visit Provider Nurse Practitioner Family
DX: M50.10 Cervical disc disorder with radiculopathy, unspecified cervical region (principal); M51.16 Intervertebral disc disorders with radiculopathy, lumbar region
CPT/HCPCS: 62368

== ENCOUNTER → 2023-04-08 12:48 | Outpatient (POV) | payer MEDICARE, SELFPAY ==
--- NOTE | 2023-04-08 13:07 | EXP.PAIN.PRO ---
Procedure Date: 04/08/23 Time: 13:07 Anesthesiologist:: Delia Mcfarland APRN Complications:: None Pre-procedure Diagnosis:: Degenerative disc disease of cervical and lumbar spine with cervical and lumbar radiculopathy symptoms, chronic pain syndrome Post-procedure Diagnosis:: Same Indications for Procedure:: Patient is a pleasant 72-year-old female who presents today for follow-up and intrathecal reprogram and adjustment. We are currently treating the patient for degenerative disc disease of lumbar and cervical spine with cervical and lumbar radiculopathy symptoms, chronic pain syndrome. Today she rates her pain a 4 out of 10. Patient states she continues to have low back pain that is worse with increased activity. She does state that they went on vacation this past week to [place] and that she was having worsening pain from the increased activity. Patient is currently managed with morphine 2 mg/mL with a daily dose of 0.2748 mg/day. Patient denies any side effects from this medication. She does state that it has helped tremendously compared to her previous oral medications. Patient is also managed with gabapentin 600 mg twice a day. Her [place] is [id number]. Its been reviewed and appropriate. Physical Exam: General: Alert and oriented x3, no acute distress, pleasant and cooperative Lungs: Respirations even and unlabored, symmetrical chest expansion Eyes: PERRL Musculoskeletal: Flexion and extension of lumbar [spine] somewhat guarded secondary to pain, [antalgic gait noted] Neurological: Speech clear, no gross sensory deficit Procedure Details:: Informed consent was obtained and the risk and benefits of the procedure were explained to the patient. Patient was taken to the procedure room where noninvasive monitoring was placed including noninvasive blood pressure cuff and pulse oximeter. Patient's pump was interrogated and was reprogrammed to morphine 0.3022 mg/day. The patient tolerated the procedure well with no complications. Plan and Disposition:: Patient tolerated her intrathecal increase with no complications. I will refill the patient's gabapentin 600 mg twice a day and provide a 1 month supply of this medication. Patient will return to clinic in 2 weeks for reevaluation of symptoms and possible readjustment of her intrathecal programming. Patient has been instructed to contact the clinic with any concerns before the next appointment. Dr. Lopez has reviewed this note and agrees with this plan of care. This note was dictated using voice recognition software and make contain errors or omissions. -- It Is medically necessary for this patient to continue to have their intrathecal pump refilled at regular intervals. This patient had an intrathecal pain pump implanted after meeting criteria of chronic intractable pain for greater than 3 months and failing conservative treatments. Patient has committed and been compliant to the treatment plan and all planned follow up care. Since implantation of the intrathecal pain pump, the patient has had decreased pain and been more functional. Oral medications have been reduced including intake of oral opioids. Patient continues to do well with intrathecal therapy with decrease in pain symptoms and increase in functional status. Stopping intrathecal medications can lead to life threatening withdrawal, seizures, cardiac arrest, severe pain, and possible . Pumps that are not refilled at regular intervals can be damages and cause and need for replacement. We continually titrate dose and concentration to optimize pain relief and function. We are limited in concentration for certain drugs to safely deliver medications through the pump and stay within the recommendations from the Polyanalges[employer] Consensus Committee Guidelines. Depending on dose and concentration these pumps may need to be refilled sooner than 3 months as we titrate.
[2023-04-08 14:49] VITALS: BP 130/64; PULSE 69; RESP 18; O2SAT 95; BMI 25.5
== END | disposition home or self-care (01) ==
PROVIDERS: Visit Provider Nurse Practitioner Family
DX: M50.10 Cervical disc disorder with radiculopathy, unspecified cervical region (principal); M51.16 Intervertebral disc disorders with radiculopathy, lumbar region; G89.4 Chronic pain syndrome
CPT/HCPCS: 62368; 99213; G0463

== ENCOUNTER → 2023-04-19 13:58 | Outpatient (POV) | payer MEDICARE, SELFPAY ==
--- NOTE | 2023-04-19 14:13 | EXP.PAIN.PRO ---
Procedure Date: 04/19/23 Time: 14:13 Anesthesiologist:: Delia Mcfarland APRN Complications:: None Pre-procedure Diagnosis:: Degenerative disc disease of cervical and lumbar spine with cervical and lumbar radiculopathy symptoms Post-procedure Diagnosis:: Same Indications for Procedure:: Patient is a pleasant 73-year-old female who presents today for medication refill and intrathecal reprogram and adjustment. We are currently treating the patient for degenerative disc disease of lumbar and cervical spine with cervical and lumbar radiculopathy symptoms, chronic pain syndrome. Today she rates her pain a 4 out of 10. She states she has had much better improvement since our last increase. She does state that she still had 1 really bad day of pain and continues to have some pain on a day-to-day basis. Patient is currently managed with morphine 2 mg/mL with a daily dose of 0.3024 mg/day. Patient denies any side effects from this medication. She is also managed with gabapentin 600 mg twice a day. Her Everton is [id number]. Its been reviewed and appropriate. Physical Exam: General: Alert and oriented x3, no acute distress, pleasant and cooperative Lungs: Respirations even and unlabored, symmetrical chest expansion Eyes: PERRL Musculoskeletal: Flexion and extension of lumbar [spine] somewhat guarded secondary to pain, [antalgic gait noted] Neurological: Speech clear, no gross sensory deficit Procedure Details:: Informed consent was obtained and the risk and benefits of the procedure were explained to the patient. Patient was taken to the procedure room where noninvasive monitoring was placed including noninvasive blood pressure cuff and pulse oximeter. Patient's pump was interrogated and was reprogrammed to morphine 0.3326 mg/day. The patient tolerated the procedure well with no complications. Plan and Disposition:: Patient tolerated her intrathecal increase with no complications and was discharged neurologically intact. I will refill the patient's gabapentin 600 mg twice a day and provide a 1 month supply of this medication. Patient will return to clinic in 1 month for reevaluation of symptoms and plan of care. Patient has been instructed to contact the clinic with any concerns before the next appointment. Dr. Lopez has reviewed this note and agrees with this plan of care. This note was dictated using voice recognition software and make contain errors or omissions. -- It Is medically necessary for this patient to continue to have their intrathecal pump refilled at regular intervals. This patient had an intrathecal pain pump implanted after meeting criteria of chronic intractable pain for greater than 3 months and failing conservative treatments. Patient has committed and been compliant to the treatment plan and all planned follow up care. Since implantation of the intrathecal pain pump, the patient has had decreased pain and been more functional. Oral medications have been reduced including intake of oral opioids. Patient continues to do well with intrathecal therapy with decrease in pain symptoms and increase in functional status. Stopping intrathecal medications can lead to life threatening withdrawal, seizures, cardiac arrest, severe pain, and possible . Pumps that are not refilled at regular intervals can be damages and cause and need for replacement. We continually titrate dose and concentration to optimize pain relief and function. We are limited in concentration for certain drugs to safely deliver medications through the pump and stay within the recommendations from the Polyanalgesic Consensus Committee Guidelines. Depending on dose and concentration these pumps may need to be refilled sooner than 3 months as we titrate.
[2023-04-19 14:33] VITALS: BP 155/50; PULSE 64; RESP 18; O2SAT 96; BMI 25.5
== END | disposition home or self-care (01) ==
PROVIDERS: Visit Provider Nurse Practitioner Family
DX: M50.10 Cervical disc disorder with radiculopathy, unspecified cervical region (principal); M51.16 Intervertebral disc disorders with radiculopathy, lumbar region; G89.4 Chronic pain syndrome
CPT/HCPCS: 62368; 99213; G0463

== ENCOUNTER → 2023-04-28 09:34 | Outpatient (POV) | payer MEDICARE, SELFPAY ==
--- NOTE | 2023-04-28 10:25 | EXP.PAIN.PRO ---
Procedure Date: 04/28/23 Time: 10:26 Anesthesiologist:: Delia Mcfarland APRN Complications:: None Pre-procedure Diagnosis:: Degenerative disc disease of cervical and lumbar spine with cervical and lumbar radiculopathy symptoms Post-procedure Diagnosis:: Same Indications for Procedure:: Patient is a pleasant 73-year-old female who presents today for intrathecal reprogram and adjustment. We are currently treating the patient for degenerative disc disease of lumbar and cervical spine with cervical and lumbar radiculopathy symptoms, chronic pain syndrome. Today she rates her pain a 8 out of 10. She states she has been doing more activity out in her garden including pulling weeds and been experiencing more low back pain. She does state that she had an episode at home where she was sitting on the couch and trying to reposition herself where she ended up sliding down onto the floor. Patient denies any significant injury or trauma. She does state that she feels like she just rolled her ankle a little along the right side. She is currently managed with morphine 2 mg/mL with a daily dose of 0. 3328 mg/day. Patient denies any side effects from this medication. She is also managed with gabapentin 600 mg twice a day. Her [place] has been reviewed and appropriate. Physical Exam: General: Alert and oriented x3, no acute distress, pleasant and cooperative Lungs: Respirations even and unlabored, symmetrical chest expansion Eyes: PERRL Musculoskeletal: Flexion and extension of lumbar [spine] somewhat guarded secondary to pain, [antalgic gait noted] Neurological: Speech clear, no gross sensory deficit Procedure Details:: Informed consent was obtained and the risk and benefits of the procedure were explained to the patient. Patient was taken to the procedure room where noninvasive monitoring was placed including noninvasive blood pressure cuff and pulse oximeter. Patient's pump was interrogated and was reprogrammed to morphine 0.3657 mg/day. The patient tolerated the procedure well with no complications. Plan and Disposition:: Patient tolerated her intrathecal increase with no complications and was discharged neurologically intact. Patient does have a follow-up appointment already scheduled for May 20. Patient has been instructed to contact the clinic with any concerns before the next appointment. Dr. Lopez has reviewed this note and agrees with this plan of care. This note was dictated using voice recognition software and make contain errors or omissions. -- It Is medically necessary for this patient to continue to have their intrathecal pump refilled at regular intervals. This patient had an intrathecal pain pump implanted after meeting criteria of chronic intractable pain for greater than 3 months and failing conservative treatments. Patient has committed and been compliant to the treatment plan and all planned follow up care. Since implantation of the intrathecal pain pump, the patient has had decreased pain and been more functional. Oral medications have been reduced including intake of oral opioids. Patient continues to do well with intrathecal therapy with decrease in pain symptoms and increase in functional status. Stopping intrathecal medications can lead to life threatening withdrawal, seizures, cardiac arrest, severe pain, and possible . Pumps that are not refilled at regular intervals can be damages and cause and need for replacement. We continually titrate dose and concentration to optimize pain relief and function. We are limited in concentration for certain drugs to safely deliver medications through the pump and stay within the recommendations from the Polyanalgesic Consensus Committee Guidelines. Depending on dose and concentration these pumps may need to be refilled sooner than 3 months as we titrate.
[2023-04-28 10:57] VITALS: BP 149/73; PULSE 64; RESP 20; O2SAT 95; BMI 25.5
== END | disposition home or self-care (01) ==
PROVIDERS: PCP Family Medicine; Visit Provider Nurse Practitioner Family
DX: M50.10 Cervical disc disorder with radiculopathy, unspecified cervical region (principal); M51.16 Intervertebral disc disorders with radiculopathy, lumbar region; Z97.8 Presence of other specified devices; G89.4 Chronic pain syndrome
CPT/HCPCS: 62368; 99213; G0463

== ENCOUNTER → 2023-05-20 13:53 | Outpatient (POV) | payer MEDICARE, SELFPAY ==
--- NOTE | 2023-05-20 14:41 | EXP.PAIN.PRO ---
Procedure Date: 05/20/23 Time: 14:41 Anesthesiologist:: Delia Mcfarland APRN Complications:: None Pre-procedure Diagnosis:: Degenerative disc disease of cervical and lumbar spine with cervical and lumbar radiculopathy symptoms Post-procedure Diagnosis:: Same Indications for Procedure:: Patient is a pleasant 73-year-old female who presents today for follow-up. We are currently treating the patient for degenerative disc disease of cervical and lumbar spine with cervical and lumbar radiculopathy symptoms. Today she rates her pain a 4 out of 10. Patient denies any new trauma or injury. She states that she has been experiencing increasing pain. Patient states that she has been working out more in the gym and that she is set a goal to be able to walk with a walker by the end of the year. Patient does believe that this is probably causing some of her additional pain. Patient is currently managed with morphine 2 mg/mL with a daily dose of 0.3657 mg/day. Patient denies any side effects from this medication. At her last visit she was having some trouble getting her bolus device to connect with her pump and had concerns that it possibly could have flipped. At this time she still states that she has had problems with this. She is scheduled for her next intrathecal refill on 05/28/2023. She is also prescribed gabapentin 600 mg twice a day from our office and diazepam 5 mg twice a day along with Ambien from her primary care provider. Her Ever[place] is [id number]. Its been reviewed and appropriate. Physical Exam: General: Alert and oriented x3, no acute distress, pleasant and cooperative Lungs: Respirations even and unlabored, symmetrical chest expansion Eyes: PERRL Musculoskeletal: Flexion and extension of lumbar [spine] somewhat guarded secondary to pain, [antalgic gait noted] Neurological: Speech clear, no gross sensory deficit Procedure Details:: Informed consent was obtained and the risk and benefits of the procedure were explained to the patient. Patient was taken to the procedure room where noninvasive monitoring was placed including noninvasive blood pressure cuff and pulse oximeter. Patient's pump was interrogated and was reprogrammed to morphine 0.40 to 4 mg/day. The patient tolerated the procedure well with no complications. Plan and Disposition:: Patient tolerated her intrathecal increase with no complication and was discharged neurologically intact. Patient also had her gabapentin 600 mg twice a day refilled with a 1 month supply given. Patient will return to clinic on 2022 for her intrathecal refill with Dr. Lopez. We will continue to monitor whether or not her intrathecal pump continues to have problems or if it is flipped. We will see the patient back in the clinic at the next intrathecal refill. Patient has been instructed to contact the clinic with any concerns before the next appointment. Dr. Lopez has reviewed this note and agrees with this plan of care. This note was dictated using voice recognition software and make contain errors or omissions. -- It Is medically necessary for this patient to continue to have their intrathecal pump refilled at regular intervals. This patient had an intrathecal pain pump implanted after meeting criteria of chronic intractable pain for greater than 3 months and failing conservative treatments. Patient has committed and been compliant to the treatment plan and all planned follow up care. Since implantation of the intrathecal pain pump, the patient has had decreased pain and been more functional. Oral medications have been reduced including intake of oral opioids. Patient continues to do well with intrathecal therapy with decrease in pain symptoms and increase in functional status. Stopping intrathecal medications can lead to life threatening withdrawal, seizures, cardiac arrest, severe pain, and possible . Pumps that are not refilled at regular intervals can be damages and cause and need for rep
[2023-05-20 14:50] VITALS: BP 123/84; PULSE 78; RESP 18; O2SAT 97; BMI 25.5
== END | disposition home or self-care (01) ==
PROVIDERS: PCP Family Medicine; Visit Provider Nurse Practitioner Family
DX: M50.10 Cervical disc disorder with radiculopathy, unspecified cervical region (principal); M51.16 Intervertebral disc disorders with radiculopathy, lumbar region; Z97.8 Presence of other specified devices
CPT/HCPCS: 62368; 99213; G0463

== ENCOUNTER 2023-05-28 12:13 | Day surgery (SDC) | payer MEDICARE, SELFPAY ==
[2023-05-28 12:33] VITALS: BP 159/79; PULSE 72; RESP 18; TEMP 36.9; O2SAT 95; BMI 28.7
[2023-05-28 12:50] VITALS: BP 172/63; PULSE 73; RESP 18; O2SAT 98
--- NOTE | 2023-05-28 13:19 | EXP.PAIN.PRO ---
Procedure Date: 05/28/23 Time: 13:19 Anesthesiologist:: Tarun Lopez MD Complications:: None Pre-procedure Diagnosis:: Degenerative disc disease of lumbar spine with lumbar radiculopathy symptoms Post-procedure Diagnosis:: Same Indications for Procedure:: The patient is a pleasant 73-year-old white female who has an intrathecal morphine pain pump in place. Her pump is flipped. We were able to access her pump at her last refill her insurance company has denied repositioning of her pump. We will try to access it again today for her refill she has 2 mL left in her pump for her low reservoir. Procedure Details:: Informed consent was obtained risk and benefits of the procedure explained to the patient. Patient was taken the procedure room. The back was prepped using ChloraPrep. The pump is completely flipped. We did attempt to flip the pump back unsuccessfully. We attempted multiple times to access the pump however since it is flipped we were unable to access the pump. The patient has 2 mL of left in the pump before her low reservoir alarm goes off. Since we were unable to access the pump we will need to schedule her for surgery for repositioning of her pump to get her refill. Plan and Disposition:: We are unable to access the pump as her pump is flipped. We will need to reposition her pump to access it and refill her medication.
--- NOTE | 2023-05-28 13:23 | PC.NURSE ---
CASE ABORTED. MD UNABLE TO ACCESS PAIN PUMP. SEE DICTATION FOR MORE DETAILS. PT D/C FROM PROCEDURE ROOM IN STABLE CONDITION AND UNDERSTANDS ALL INSTRUCTIONS REGARDING CARE.
[2023-05-28 13:25] VITALS: BP 194/87; PULSE 61; RESP 18; O2SAT 95
== END 2023-05-28 13:25 | disposition home or self-care (01) ==
PROVIDERS: PCP Family Medicine; Visit Provider Anesthesiology
DX: M51.16 Intervertebral disc disorders with radiculopathy, lumbar region (principal); T85.62 Displacement of other specified internal prosthetic devices, implants and grafts
CPT/HCPCS: 95991

== ENCOUNTER 2023-06-02 11:39 | Day surgery (SDC) | payer MEDICARE, SELFPAY ==
[2023-06-02 12:50] VITALS: BP 169/77; PULSE 77; RESP 20; O2SAT 96; BMI 28.7
[2023-06-02 13:13] VITALS: BP 176/86; PULSE 76; RESP 20; O2SAT 96
--- NOTE | 2023-06-02 13:18 | EXP.PAIN.PRO ---
Procedure Date: 06/02/23 Time: 13:18 Anesthesiologist:: Delia Mcfarland APRN Complications:: None Pre-procedure Diagnosis:: Degenerative disc disease of cervical and lumbar spine with cervical and lumbar radiculopathy symptoms Post-procedure Diagnosis:: Same Indications for Procedure:: Patient is a pleasant 73-year-old female who presents today for follow-up of intrathecal revision and intrathecal adjustment and reprogramming. We are currently treating the patient for degenerative disc disease of cervical and lumbar spine with cervical and lumbar radiculopathy symptoms. Today she rates her pain a 9 out of 10. Patient denies any new trauma or injury. Patient did have a flipped intrathecal pain pump that was revised this past Wednesday. At the date of her last refill they were unable to access the pump due to the positioning and had to do the revision to flip the pump and tack it down to prevent future movement. Patient does state that she is continued to have incisional pain along with her typical low back pain. She is currently managed with morphine 2 mg/mL with a daily dose of 0.4024 mg/day. Patient denies any side effects from this medication. She is also prescribed gabapentin 600 mg twice a day from our office and diazepam 5 mg twice a day along with Ambien from her primary care provider. Her [place] has been reviewed and appropriate. Physical Exam: General: Alert and oriented x3, no acute distress, pleasant and cooperative Lungs: Respirations even and unlabored, symmetrical chest expansion Eyes: PERRL Musculoskeletal: Flexion and extension of lumbar [spine] somewhat guarded secondary to pain, [antalgic gait noted] Neurological: Speech clear, no gross sensory deficit Skin: Incision site at right lateral with moderate edema and significant ecchymosis, sutures and dissolvable raoul intact Procedure Details:: Patient was taken to the procedure room and noninvasive monitoring devices such as a pulse ox and blood pressure cuff were placed on the patient. She was placed in a prone position with her pump interrogated and approximately 1.3 mL of solution expected. The area around her incision site/pump was cleansed with ChloraPrep as a cleansing solution. Using a 25-gauge sterile needle the pump was accessed under fluoroscopy and approximately 0.3 mL of solution removed and discarded appropriately. Patient then was filled with 20 mL of morphine 2 mg/mL. Confirmation was given under fluoroscopy of medication being filled within the [employer] device. Patient's pump was then reprogrammed to morphine 0.4421 mg/day. Needle was removed and sterile gauze and bandages were reapplied to her incision site. Plan and Disposition:: Patient tolerated her intrathecal refill and increase with no complications and was discharged neurologically intact. Patient has been counseled to continue her postop restrictions. I have counseled the patient that she will return to clinic in 2 weeks for reevaluation of symptoms and possible intrathecal adjustment and reprogram. Patient has been instructed to contact the clinic with any concerns before the next appointment. Dr. Lopez has reviewed this note and agrees with this plan of care. This note was dictated using voice recognition software and make contain errors or omissions. -- It Is medically necessary for this patient to continue to have their intrathecal pump refilled at regular intervals. This patient had an intrathecal pain pump implanted after meeting criteria of chronic intractable pain for greater than 3 months and failing conservative treatments. Patient has committed and been compliant to the treatment plan and all planned follow up care. Since implantation of the intrathecal pain pump, the patient has had decreased pain and been more functional. Oral medications have been reduced including intake of oral opioids. Patient continues to do well with intrathecal therapy with decrease in pain symptoms and increase in
[2023-06-02 13:25] VITALS: BP 179/64; PULSE 71; RESP 20; O2SAT 98
== END 2023-06-02 13:25 | disposition home or self-care (01) ==
PROVIDERS: PCP Family Medicine; Visit Provider Nurse Practitioner Family
DX: M50.10 Cervical disc disorder with radiculopathy, unspecified cervical region (principal); M51.16 Intervertebral disc disorders with radiculopathy, lumbar region; Z97.8 Presence of other specified devices
CPT/HCPCS: 62370; 77002

== ENCOUNTER → 2023-06-18 13:53 | Outpatient (POV) | payer MEDICARE, SELFPAY ==
--- NOTE | 2023-06-18 14:42 | EXP.PAIN.SOA ---
[facility] Pain Management SOAP Note Subjective:: This patient is a very pleasant 73-year-old female that comes our clinic today for follow-up visit regarding intrathecal pain pump increase. Patient is currently being managed with morphine sulfate 2 mg/mL at a rate of 0.44 to 1 mg/day. Patient doing very well in regards to her overall low back hip and leg pain as well as cervical neck pain and cervical radiculopathy. However patient having some increased pain with activity in the low lumbar area. She is requesting an increase today. I think this is reasonable. We will increase her pump by 10% today. Patient rates her pain 5/10. Sutures were removed today of the horizontal incision. Steri-Strips applied. Suture line is clean and dry with no sign of infection. No redness or swelling. Patient continues taking gabapentin 600 mg 1 p.o. twice daily. Patient also takes Valium 5 mg 1 p.o. daily as well as Ambien nightly from her PCP. Patient's [place] #[id number] has been reviewed and appropriate. Objective:: Patient is awake alert [place] x3. No acute distress. Flexion-extension cervical lumbar spine guarded secondary to pain. Motor strength upper extremities normal. Motor strength lower extremities normal. However, patient requires motorized wheelchair for any distance of ambulation. Patient presents today in wheelchair. Assessment:: Degenerative disc lumbar spine multilevels. Lumbar radiculopathy. Degenerative disc cervical spine cervical radiculopathy Plan:: We will refill the patient's gabapentin 600 mg 1 p.o. twice daily. We increase the patient's pump today [facility] Disclaimer: The information contained in this section may have been updated after the patient was seen, as this information can be updated by other users. Medical History Allergic rhinitis Angina pectoris Chronic back pain Dyspnea Dyspnea on exertion History of asthma HTN (hypertension) JEFFREY (obstructive sleep apnea) PAD (peripheral artery disease) Pleural thickening JACOBO (renal artery stenosis) Right-sided congestive heart failure Smoking greater than 30 pack years Traumatic ecchymosis of left upper arm Surgical History History of section History of cholecystectomy History of hysterectomy History of knee replacement right Family History Other Family history of TIAs Family history of cancer Family history of myocardial infarction Social History (Updated 06/02/23 @ 13:45 by Joan Zabala RN) Smoking Status: Current every day smoker tobacco type: cigarettes packs per day: 1 alcohol intake: never substance use type: denies use current occupational status: other Travel in the last 8 weeks: None household members: family housing: house marital status: education level: high school current occupational exposures/hazards: No caffeine: Yes special vanessa needs: No agree to transfusion: No do you feel safe at home: Yes victim of physical abuse: No victim of emotional abuse: No victim of sexual abuse: No would you like helpful sources: No
--- NOTE | 2023-06-18 14:47 | P.PCN_ITS ---
Procedure Date: 06/18/23 Time: 14:45 Anesthesiologist:: Dmitriy Wetzel CRNA Complications:: None Pre-procedure Diagnosis:: Degenerative disc lumbar spine multilevels. Lumbar radiculopathy. Degenerative disc cervical spine cervical radiculopathy Post-procedure Diagnosis:: Same. Indications for Procedure:: erall low back hip and leg pain as well as cervical neck pain and cervical radiculopathy. However patient having some increased pain with activity in the low lumbar area. She is requesting an increase today. I think this is reasonable. We will increase her pump by 10% today. Patient rates her pain 5/10. Sutures were removed today of the horizontal incision. Steri-Strips appl ied. Suture line is clean and dry with no sign of infection. No redness or swelling. Patient continues taking gabapentin 600 mg 1 p.o. twice daily. Patient also takes Valium 5 mg 1 p.o. daily as well as Ambien nightly from her PCP. Patient's [place] #[id number] has been reviewed and appropriate. Procedure Details:: Details of the procedure explained to the patient. The patient's pump was interrogated. The rate was increased by 10%. Patient's new rate is 0.4869 mg/day. Patient tolerated procedure without difficulty. No complications. Plan and Disposition:: Patient was discharged out incident.
[2023-06-18 15:02] VITALS: BP 154/82; PULSE 67; RESP 20; BMI 28.7
== END | disposition home or self-care (01) ==
PROVIDERS: Visit Provider Nurse Anesthetist, Certified Registered
DX: M51.16 Intervertebral disc disorders with radiculopathy, lumbar region (principal); M50.10 Cervical disc disorder with radiculopathy, unspecified cervical region; Z97.8 Presence of other specified devices
CPT/HCPCS: 62368; 99212; G0463

== ENCOUNTER → 2023-06-21 12:21 | Outpatient (CLI) | payer MEDICARE, SELFPAY ==
[2023-06-21 13:45] VITALS: PULSE 58; PULSE 60
== END ==
PROVIDERS: PCP Family Medicine; Visit Provider Internal Medicine Pulmonary Disease
DX: R06.02 Shortness of breath (principal)
CPT/HCPCS: 94060; 94640; 94727; 94729

== ENCOUNTER → 2023-07-01 13:31 | Outpatient (CLI) | payer MEDICARE, SELFPAY ==
[2023-07-01 14:40] LABS: Chloride 102 mmol/L (98-107); Potassium 4.1 mmoL/L (3.5-5.1); Sodium 140 mmol/L (136-145)
[2023-07-01 14:43] LABS: Anion Gap 11.1 mEq/L (5-15); Blood Urea Nitrogen 14 mg/dl (7-17); Calcium 9.2 mg/dl (8.4-10.2); Carbon Dioxide 31 mmol/L (22.0-30.0); Estimated Glomerular Filt Rate 71 ml/min (>60); GFR (African American) 85 ML/MIN (>60); Glucose 92 mg/dl (74-100)
== END ==
PROVIDERS: Nurse Practitioner Family; PCP Family Medicine; Visit Provider Obstetrics & Gynecology
DX: I25.10 Atherosclerotic heart disease of native coronary artery without angina pectoris (principal); I11.0 Hypertensive heart disease with heart failure; I27.20 Pulmonary hypertension, unspecified; I50.810 Right heart failure, unspecified; I65.29 Occlusion and stenosis of unspecified carotid artery; R06.00 Dyspnea, unspecified; E78.5 Hyperlipidemia, unspecified; M54.9 Dorsalgia, unspecified; G89.29 Other chronic pain; Z72.0 Tobacco use
CPT/HCPCS: 36415; 80048

== ENCOUNTER 2023-07-13 13:30 | Day surgery (SDC) | payer MEDICARE, SELFPAY ==
[2023-07-13 14:09] VITALS: BP 142/55; PULSE 69; RESP 18; O2SAT 94; BMI 28.7
[2023-07-13 14:27] VITALS: BP 161/76; PULSE 67; RESP 18; O2SAT 96
[2023-07-13 14:31] VITALS: BP 161/76; PULSE 66; RESP 18; O2SAT 96
--- NOTE | 2023-07-13 14:36 | EXP.PAIN.PRO ---
Procedure Date: 07/13/23 Time: 14:20 Anesthesiologist:: Dmitriy Wetzel CRNA Complications:: None Pre-procedure Diagnosis:: Degenerative disc lumbar spine multilevels. Lumbar radiculopathy. Degenerative disc cervical spine multiple levels. Cervical radiculopathy. Post-procedure Diagnosis:: Same. Indications for Procedure:: Patient is a very pleasant 73-year-old female comes our clinic today for intrathecal pain pump interrogation refill. She is currently being managed with morphine sulfate 2 mg/mL at a rate of 0.4869 mg/day. Patient doing very well with her current settings. She is not requesting any changes. She does not report any side effects from the current intrathecal pain pump therapy. Procedure Details:: Details of the procedure explained to the patient. Patient taken to procedure room placed in the sitting position. The area over the pump was cleansed using chlorhexidine's cleansing solution. The pump was interrogated. The pump was accessed with ease using a 22-gauge inch and half needle. 4.5 mL of solution was withdrawn discarded appropriately. The pump was then filled with 20 cc of a solution containing morphine sulfate 2 mg/mL. The pump rate will continue at 0.4869 mg/day. Patient tolerated procedure without difficulty. No complications. Plan and Disposition:: Patient was discharged without incident.
[2023-07-13 14:40] VITALS: BP 167/78; PULSE 62; RESP 16; O2SAT 94
[2023-07-13 15:27] LABS: Benzodiazepines Screen,Urine Positive ng/ml (<200)
[2023-07-13 15:28] LABS: Amphetamine/Metha Screen,Urine Negative ng/ml (<1000)
[2023-07-13 15:29] LABS: Barbiturates Screen,Urine Negative ng/ml (<200); Cannabinoid Screen,Urine Negative ng/ml (<50)
[2023-07-13 15:30] LABS: Cocaine Screen,Urine Negative ng/ml (<300)
[2023-07-13 15:31] LABS: Methadone Screen,Urine Negative ng/ml (<300); Opiate Screen,Urine Positive ng/ml (<300)
[2023-07-13 15:32] LABS: Phencyclidine Screen,Urine Negative ng/ml (<25)
[2023-07-21 13:44] LABS: Codeine Negative (Cutoff=100); Hydrocodone Negative (Cutoff=100); Hydromorphone Negative (Cutoff=100); Morphine Positive (.); Opiates Positive (.)
== END 2023-07-13 14:40 | disposition home or self-care (01) ==
PROVIDERS: Anesthesiology; PCP Family Medicine; Visit Provider Nurse Anesthetist, Certified Registered
DX: M51.16 Intervertebral disc disorders with radiculopathy, lumbar region (principal); M50.10 Cervical disc disorder with radiculopathy, unspecified cervical region; Z97.8 Presence of other specified devices
CPT/HCPCS: 80305; 80361; 80365; 95991; G0480

== ENCOUNTER → 2023-07-22 13:53 | Outpatient (CLI) | payer MEDICARE, SELFPAY ==
[2023-07-22 14:33] LABS: Basophils % 0.6 % (0.1-2.0); Eosinophils # 0.2 K/mm3 (0.0-0.4); Eosinophils % 2.3 % (0.1-12.0); Hematocrit 43.6 % (37.0-47.0); Hemoglobin 14.6 g/dL (12.2-16.2); Lymphocytes # 2.1 K/mm3 (0.7-4.5); Lymphocytes % 30.7 % (10-50); Mean Corpuscular HGB Conc 33.4 g/dL (31.8-35.4); Mean Corpuscular Hemoglobin 31.1 pg (27.0-31.2); Mean Corpuscular Volume 93.1 fl (81-99); Mean Platelet Volume 7.8 fl (7.4-10.4); Monocytes # 0.4 K/mm3 (0.1-1.0); Monocytes % 5.2 % (1.7-9.3); Neutrophils # 4.2 K/mm3 (1.8-7.8); Neutrophils % 61.3 % (37.0-80.0); Platelet Count 259 K/mm3 (142-424); Red Blood Count 4.68 M/mm3 (4.20-5.40); Red Cell Distribution Width 13.9 % (11.5-17.5); White Blood Count 6.8 K/mm3 (4.8-10.8)
[2023-07-22 15:30] LABS: Alanine Aminotransferase 15 U/L (12-78); Albumin Level 4.3 g/dl (3.5-5.0); Alkaline Phosphatase 84 U/L (38-126); Anion Gap 12.4 mEq/L (5-15); Aspartate Amino Transferase 30 U/L (14-36); Bilirubin,Direct 0.1 mg/dl (0.0-0.4); Bilirubin,Indirect 0.2 mg/dL (0.0-0.9); Bilirubin,Total 0.3 mg/dl (0.2-1.3); Bilirubin,Unconjugated 0.2 mg/dL (0.0-1.1); Blood Urea Nitrogen 15 mg/dl (7-17); Calcium 9.9 mg/dl (8.4-10.2); Carbon Dioxide 30 mmol/L (22.0-30.0); Chloride 102 mmol/L (98-107); Chol/HDL Ratio 1.7 (1-3.5); Cholesterol 151 mg/dl (140-200); Estimated Glomerular Filt Rate 71 ml/min (>60); GFR (African American) 85 ML/MIN (>60); Glucose 101 mg/dl (74-100); HDL Cholesterol 90 mg/dl (40-60); Potassium 5.4 mmoL/L (3.5-5.1); Sodium 139 mmol/L (136-145); Triglycerides 93 mg/dl (30-150); VLDL Cholesterol 19 mg/dL (0-40)
[2023-07-22 15:41] LABS: Direct LDL Cholesterol 59.07 mg/dL (100-129)
[2023-07-22 15:46] LABS: Free T4 (Free Thyroxine) 1.13 ng/dl (0.78-2.19)
== END ==
PROVIDERS: PCP Family Medicine; Visit Provider Internal Medicine
DX: E78.5 Hyperlipidemia, unspecified (principal); I11.0 Hypertensive heart disease with heart failure; I25.10 Atherosclerotic heart disease of native coronary artery without angina pectoris; I27.20 Pulmonary hypertension, unspecified; I50.30 Unspecified diastolic (congestive) heart failure; I50.810 Right heart failure, unspecified; I65.29 Occlusion and stenosis of unspecified carotid artery; I70.1 Atherosclerosis of renal artery; I73.9 Peripheral vascular disease, unspecified; R06.00 Dyspnea, unspecified; M54.9 Dorsalgia, unspecified; G89.29 Other chronic pain; Z72.0 Tobacco use
CPT/HCPCS: 36415; 80048; 80061; 80076; 83735; 84439; 84443; 85025

== ENCOUNTER 2023-08-24 12:27 | Day surgery (SDC) | payer MEDICARE, SELFPAY ==
[2023-08-24 13:06] VITALS: BP 134/66; PULSE 69; O2SAT 96; BMI 28.7
--- NOTE | 2023-08-24 13:42 | EXP.PAIN.PRO ---
Procedure Date: 08/24/23 Time: 13:35 Anesthesiologist:: Dmitriy Wetzel CRNA Complications:: None Pre-procedure Diagnosis:: Degenerative disc lumbar spine multilevels. Lumbar radiculopathy. Degenerative disc cervical spine multiple levels. Cervical radiculopathy Post-procedure Diagnosis:: Same. Indications for Procedure:: Patient is a very pleasant 73-year-old female comes our clinic today for intrathecal pain pump interrogation refill. Patient currently being managed with morphine sulfate 2 mg/mL at a rate of 0.4869 mg/day. We will change the patient's concentration to 3 mg/day morphine sulfate. Patient doing very well with her current settings. She does not request any changes. She does not report any side effects or complications. Procedure Details:: Details of the procedure explained to the patient. Patient was taken the procedure room placed in the sitting position. The area of the pump was cleansed using chlorhexidine's cleansing solution. The pump was interrogated. The pump was accessed with ease using a 22-gauge inch and half needle. 7.1 mL of solution was withdrawn discarded appropriate. The pump was then filled with 20 cc of solution containing morphine sulfate 3 mg/mL. The pump rate will continue at 0.4869 mg/day. Patient tolerated procedure without difficulty. There are no complications. Plan and Disposition:: Patient was discharged without incident.
[2023-08-24 13:51] VITALS: BP 141/67; PULSE 62; O2SAT 97
== END 2023-08-24 13:47 | disposition home or self-care (01) ==
PROVIDERS: PCP Family Medicine; Visit Provider Nurse Anesthetist, Certified Registered
DX: M51.16 Intervertebral disc disorders with radiculopathy, lumbar region (principal); M50.10 Cervical disc disorder with radiculopathy, unspecified cervical region; Z97.8 Presence of other specified devices; Z45.1 Encounter for adjustment and management of infusion pump
CPT/HCPCS: 95991

== ENCOUNTER 2023-10-26 12:41 | Day surgery (SDC) | payer MEDICARE, SELFPAY ==
[2023-10-26 13:13] VITALS: BP 171/76; PULSE 69; RESP 16; O2SAT 95; BMI 28.7
[2023-10-26 13:18] VITALS: BP 167/54; PULSE 64; RESP 18; O2SAT 94
[2023-10-26 13:19] VITALS: BP 167/54; PULSE 64; RESP 18; O2SAT 97
--- NOTE | 2023-10-26 13:23 | EXP.PAIN.PRO ---
Procedure Date: 10/26/23 Time: 13:10 Anesthesiologist:: Dmitriy Wetzel CRNA Complications:: None Pre-procedure Diagnosis:: Degenerative disc lumbar spine multilevels. Lumbar radiculopathy. DJD right knee. Chronic right knee pain. Post-procedure Diagnosis:: Same. Indications for Procedure:: Patient is a very pleasant 73-year-old female comes our clinic today for intrathecal pain pump interrogation refill. Patient is currently being managed with morphine sulfate 3 mg/mL at a rate of 0.4869 mg/day. Patient is reporting some low back pain she describes as constant, dull, aching. She reports this is usually associated with activity. She is requesting an increase in her pump rate. Patient also reports having right knee replacement in February. I will increase her pump to 20%. Procedure Details:: Details of the procedure explained to the patient. The patient taken procedure and placed in sitting position. The area of the pump is cleansed using chlorhexidine as a cleansing solution. The pump was interrogated. The pump was accessed with ease using a 22-gauge inch and half needle. 6 mL of solution was drawn discarded appropriate. The pump was then filled with 20 cc of solution containing morphine sulfate 3 mg/mL. The pump is increased by 20%. Her new rate will be 0.5852 mg/day. Plan and Disposition:: Patient was discharged without incident
[2023-10-26 13:30] VITALS: BP 171/69; PULSE 62; RESP 18; O2SAT 95
== END 2023-10-26 13:30 | disposition home or self-care (01) ==
PROVIDERS: PCP Family Medicine; Visit Provider Nurse Anesthetist, Certified Registered
DX: M51.16 Intervertebral disc disorders with radiculopathy, lumbar region (principal); M17.11 Unilateral primary osteoarthritis, right knee; M25.561 Pain in right knee; G89.29 Other chronic pain; Z97.8 Presence of other specified devices; Z45.1 Encounter for adjustment and management of infusion pump
CPT/HCPCS: 95991

== ENCOUNTER 2023-11-18 11:20 | Outpatient (RCR) | payer MEDICARE, SELFPAY | END 2023-11-18 12:00 | disposition home or self-care (01) | LOC: PT 11:20 | PROVIDERS: Visit Provider Orthopaedic Surgery | DX: M17.11 Unilateral primary osteoarthritis, right knee (principal) | CPT/HCPCS: 97760 ==

== ENCOUNTER 2023-12-02 10:36 | Outpatient (POV) | payer MEDICARE, SELFPAY ==
--- NOTE | 2023-12-02 10:57 | P.PCN_ITS ---
Procedure Date: 12/02/23 Time: 10:57 Anesthesiologist:: Delia Mcfarland APRN Complications:: None Pre-procedure Diagnosis:: Degenerative disc disease of cervical and lumbar spine with lumbar radiculopathy symptoms, chronic knee pain Post-procedure Diagnosis:: Same Indications for Procedure:: Patient is a pleasant 73-year-old female who presents today for follow-up of intrathecal adjustment and reprogramming. We are currently treating the patient for degenerative disc disease of cervical and lumbar spine with cervical and lumbar radiculopathy symptoms. Today she rates her pain a 7 out of 10. Patient states that about a week and a half ago that she was walking in her bedroom and her little pinky toe caught on a cedar chest causing her to fall and she did fracture that joint. Patient states that she has had increased pain since that time and is requesting a increase of her intrathecal medication. Patient is currently managed with morphine 3 mg/mL with a daily dose of 0.5852 mg/day. She denies any side effects from this medication. She states that it does help on a day-to-day basis. She is also prescribed gabapentin 600 mg twice a day and methocarbamol 750 mg 4 times a day from our office. She denies any side effects from these medications. She is prescribed diazepam 5 mg twice a day along with Ambien from her primary care provider. Her [place] has been reviewed and appropriate. Physical Exam: General: Alert and oriented x3, no acute distress, pleasant and cooperative Lungs: Respirations even and unlabored, symmetrical chest expansion Eyes: PERRL Musculoskeletal: Flexion and extension of lumbar [spine] somewhat guarded secondary to pain, [antalgic gait noted] Neurological: Speech clear, no gross sensory deficit Procedure Details:: Informed consent was obtained and the risk and benefits of the procedure were explained to the patient. Patient was taken to the procedure room where noninvasive monitoring was placed including noninvasive blood pressure cuff and pulse oximeter. Patient's pump was interrogated and was reprogrammed to morphine0.644mg/day. The patient tolerated the procedure well with no complications. Plan and Disposition:: Patient tolerated her intrathecal increase with no complications and was discharged neurologically intact. I will refill the patient's gabapentin 600 mg twice daily and methocarbamol 750 mg 4 times a day and provide a 3-month supply of these medications. Patient has been counseled to contact our office if she needs an appointment sooner than her intrathecal refill date for additional adjustment and reprogram. Patient is planning on going to [place] next week for a short vacation. We will see the patient back in the clinic at the next intrathecal refill. Patient has been instructed to contact the clinic with any concerns before the next appointment. Dr. Lopez has reviewed this note and agrees with this plan of care. This note was dictated using voice recognition software and make contain errors or omissions. -- It Is medically necessary for this patient to continue to have their intrathecal pump refilled at regular intervals. This patient had an intrathecal pain pump implanted after meeting criteria of chronic intractable pain for greater than 3 months and failing conservative treatments. Patient has committed and been compliant to the treatment plan and all planned follow up care. Since implantation of the intrathecal pain pump, the patient has had decreased pain and been more functional. Oral medications have been reduced including intake of oral opioids. Patient continues to do well with intrathecal therapy with decrease in pain symptoms and increase in functional status. Stopping intrathecal medications can lead to life threatening withdrawal, seizures, cardiac arrest, severe pain, and possible . Pumps that are not refilled at regular intervals can be damages and cause and need for replacement. We continually titrate dose and concentration to optimize pain relief and function. We are limited in concentration for certain drugs to safely deliver medications through the pump and stay within the recommendations from the Polyanalgesic Consensus Committee Guidelines. Depending on dose and concentration these pumps may need to be refilled sooner than 3 months as we titrate.
[2023-12-02 12:22] VITALS: BP 157/71; PULSE 74; RESP 18; O2SAT 97; BMI 28.4
== END 2023-12-02 23:59 | disposition home or self-care (01) ==
PROVIDERS: PCP Family Medicine; Visit Provider Nurse Practitioner Family
DX: M50.30 Other cervical disc degeneration, unspecified cervical region (principal); M51.16 Intervertebral disc disorders with radiculopathy, lumbar region; G89.29 Other chronic pain; M25.569 Pain in unspecified knee; Z45.1 Encounter for adjustment and management of infusion pump; Z97.8 Presence of other specified devices
CPT/HCPCS: 62368; 99213; G0463

== ENCOUNTER 2023-12-21 12:57 | Day surgery (SDC) | payer MEDICARE, SELFPAY ==
[2023-12-21 13:16] VITALS: BP 144/51; PULSE 68; RESP 18; O2SAT 96; BMI 28.7
--- NOTE | 2023-12-21 13:35 | P.PCN_ITS ---
Procedure Date: 12/21/23 Time: 13:20 Anesthesiologist:: Dmitriy Wetzel CRNA Complications:: None Pre-procedure Diagnosis:: Degenerative disc lumbar spine multilevels. Lumbar radiculopathy. Lumbar spondylosis. Post-procedure Diagnosis:: Same. Indications for Procedure:: Patient is a pleasant 73-year-old female comes our clinic today for intrathecal pain pump interrogation and refill. She is currently being managed with morphine sulfate 3 mg/mL at a daily rate of 0.644 mg/day. Patient requesting increase due to low back pain intensifying with activity. She denies radiculopathy. I think this is reasonable. Will increase her pump by 20%. She is not reporting side effects or complications regarding intrathecal pain pump management. Procedure Details:: Details of the procedure explained to the patient. The patient taken the [facility] room placed in the sitting position. They over the pumps cleansed using chlorhexidine's cleansing solution. The pump was interrogated. The pump was accessed with ease using a 22-gauge inch and half needle. 5.5 mL of solution was withdrawn discarded appropriately. The pump was then filled with 20 cc of solution containing morphine sulfate 3 mg/mL. Patient's pump was interrogated and reprogrammed. The new rate will be 0.7735 mg/day. Plan and Disposition:: Patient tolerated procedure without difficulty. There are no complications.
[2023-12-21 13:40] VITALS: BP 160/67; PULSE 62; RESP 18; O2SAT 96
[2023-12-29 09:34] LABS: 7-Aminoclonazepam Negative (.); Alprazolam Negative (.); Amphetamines IA Negative ng/mL (Cutoff:50); Barbiturates, IA Negative ug/mL (Cutoff:0.1); Benzodiazepines, IA ++POSITIVE++ ng/mL (Cutoff:20); Chlordiazepoxide Negative (.); Clonazepam Negative (.); Cocaine & Metabolite, IA Negative ng/mL (Cutoff:25); Desalkylflurazepam Negative (.); Diazepam 171 ng/mL (.); Flurazepam Negative (.); Lorazepam Negative (.); Methadone, IA Negative ng/mL (Cutoff:25); Midazolam Negative (.); Opiates, IA Negative ng/mL (Cutoff:5); Oxycodones, IA Negative ng/mL (Cutoff:5); Phencyclidine, IA Negative ng/mL (Cutoff:8); Propoxyphene, IA Negative ng/mL (Cutoff:50); THC (Marijauna) Metabolite, IA Negative ng/mL (Cutoff:5); Temazepam Negative (.); Triazolam Negative (.)
== END 2023-12-21 13:40 | disposition home or self-care (01) ==
PROVIDERS: Anesthesiology; PCP Family Medicine; Visit Provider Nurse Anesthetist, Certified Registered
DX: M51.16 Intervertebral disc disorders with radiculopathy, lumbar region (principal); M47.26 Other spondylosis with radiculopathy, lumbar region; Z97.8 Presence of other specified devices; Z45.1 Encounter for adjustment and management of infusion pump
CPT/HCPCS: 36415; 62370; 80307

== ENCOUNTER 2024-01-03 09:46 | Outpatient (POV) | payer MEDICARE, SELFPAY ==
[2024-01-03 10:38] VITALS: BP 164/55; PULSE 64; RESP 18; TEMP 36.6; O2SAT 98; BMI 39.0
--- NOTE | 2024-01-03 11:33 | EXP.PAIN.PRO ---
Procedure Date: 01/03/24 Time: 10:28 Anesthesiologist:: Delia Mcfarland APRN Complications:: None Pre-procedure Diagnosis:: Degenerative disc disease of cervical and lumbar spine with cervical and lumbar radiculopathy symptoms, chronic pain syndrome Post-procedure Diagnosis:: Same Indications for Procedure:: Patient is a pleasant 73-year-old female who presents today for follow-up of intrathecal adjustment and reprogramming. We are currently treating the patient for degenerative disc disease of cervical and lumbar spine with cervical and lumbar radiculopathy symptoms. Today she rates her pain a 5 out of 10. She denies any new trauma or injury. She states that she has been trying to do more outside with the nicer weather and feels like she has aggravated her pain symptoms. Patient is currently managed with morphine 3 mg/mL with a daily dose of 0.7735 mg/day. She denies any side effects from this medication. She is also prescribed gabapentin 600 mg twice a day and methocarbamol 750 mg 4 times a day from our office. She denies any side effects from these medications. She is prescribed diazepam 5 mg twice a day along with Ambien from her primary care provider. Her [place] has been reviewed and appropriate. Physical Exam: General: Alert and oriented x3, no acute distress, pleasant and cooperative Lungs: Respirations even and unlabored, symmetrical chest expansion Eyes: PERRL Musculoskeletal: Flexion and extension of lumbar [spine] somewhat guarded secondary to pain, [antalgic gait noted] Neurological: Speech clear, no gross sensory deficit Procedure Details:: Informed consent was obtained and the risk and benefits of the procedure were explained to the patient. Patient was taken to the procedure room where noninvasive monitoring was placed including noninvasive blood pressure cuff and pulse oximeter. Patient's pump was interrogated and was reprogrammed to morphine 0.851 mg/day. The patient tolerated the procedure well with no complications. Plan and Disposition:: Patient tolerated her intrathecal increase with no complications and was discharged neurologically intact. I will also make sure the patient has refills on her gabapentin and methocarbamol. Patient does already have her next intrathecal refill date and I will not give her additional appointment times currently. I have discussed with the patient if she feels like she needs an additional appointment between now and her next refill she can contact our office and have this appointment scheduled. We will see the patient back in the clinic at the next intrathecal refill. Patient has been instructed to contact the clinic with any concerns before the next appointment. Dr. Lopez has reviewed this note and agrees with this plan of care. This note was dictated using voice recognition software and make contain errors or omissions. -- It Is medically necessary for this patient to continue to have their intrathecal pump refilled at regular intervals. This patient had an intrathecal pain pump implanted after meeting criteria of chronic intractable pain for greater than 3 months and failing conservative treatments. Patient has committed and been compliant to the treatment plan and all planned follow up care. Since implantation of the intrathecal pain pump, the patient has had decreased pain and been more functional. Oral medications have been reduced including intake of oral opioids. Patient continues to do well with intrathecal therapy with decrease in pain symptoms and increase in functional status. Stopping intrathecal medications can lead to life threatening withdrawal, seizures, cardiac arrest, severe pain, and possible . Pumps that are not refilled at regular intervals can be damages and cause and need for replacement. We continually titrate dose and concentration to optimize pain relief and function. We are limited in concentration for certain drugs to safely deliver medications through the pump and stay within the recommendations from the Polyanalgesic Consensus Committee Guidelines. Depending on dose and concentration these pumps may need to be refilled sooner than 3 months as we titrate.
== END 2024-01-03 23:59 | disposition home or self-care (01) ==
PROVIDERS: PCP Family Medicine; Visit Provider Nurse Practitioner Family
DX: M50.10 Cervical disc disorder with radiculopathy, unspecified cervical region (principal); M51.16 Intervertebral disc disorders with radiculopathy, lumbar region; G89.4 Chronic pain syndrome; Z97.8 Presence of other specified devices; Z45.1 Encounter for adjustment and management of infusion pump
CPT/HCPCS: 62368; 99212; G0463

== ENCOUNTER 2024-01-25 13:42 | Day surgery (SDC) | payer MEDICARE, SELFPAY ==
[2024-01-25 14:03] VITALS: BP 150/72; PULSE 65; RESP 18; TEMP 36.8; O2SAT 95; BMI 28.7
[2024-01-25 14:15] VITALS: BP 172/77; PULSE 66; RESP 18; O2SAT 97
--- NOTE | 2024-01-25 14:19 | EXP.PAIN.PRO ---
Procedure Date: 01/25/24 Time: 14:13 Anesthesiologist:: Dmitriy Wetzel CRNA Complications:: None Pre-procedure Diagnosis:: Degenerative disc lumbar spine multilevels. Lumbar radiculopathy. Degenerative disc cervical spine multilevels. Cervical radiculopathy. Chronic pain syndrome. Post-procedure Diagnosis:: Same. Indications for Procedure:: Patient is a pleasant 73-year-old female comes our clinic today for intrathecal pain pump interrogation and refill. Patient currently being managed with morphine sulfate 3 mg/mL. We will be changing her to morphine sulfate 4 mg/mL. Patient is currently being managed with intrathecal pain pump rate of 0.8510 mg/day. She is requesting increase today due to low back pain with activity. I will increase her intrathecal rate by 10%. Her new rate will be 0.9359 mg today. Procedure Details:: Details of the procedure explained to the patient. The patient stated procedure room placed in sitting position. The area over the pump was cleansed using chlorhexidine as a cleansing solution. The pump was interrogated. The pump was accessed with ease using a 22-gauge inch and half needle. 6.5 mL of solution was withdrawn discarded appropriate. The pump was then filled with 20 cc of solution containing morphine sulfate 4 mg/mL. The pump rate will be increased by 10%. The new rate will be 0.9359 mg/day. Patient tolerated procedure without difficulty. There are no complications. Plan and Disposition:: Patient was discharged without incident.
[2024-01-25 14:22] VITALS: BP 172/77; PULSE 66; RESP 18; O2SAT 97
[2024-01-25 14:36] VITALS: BP 157/94; PULSE 60; RESP 18; O2SAT 98
== END 2024-01-25 14:37 | disposition home or self-care (01) ==
PROVIDERS: PCP Family Medicine; Visit Provider Nurse Anesthetist, Certified Registered
DX: M51.16 Intervertebral disc disorders with radiculopathy, lumbar region (principal); M50.10 Cervical disc disorder with radiculopathy, unspecified cervical region; G89.4 Chronic pain syndrome; Z97.8 Presence of other specified devices; Z45.1 Encounter for adjustment and management of infusion pump
CPT/HCPCS: 62370

== ENCOUNTER 2024-03-14 10:21 | Day surgery (SDC) | payer MEDICARE, SELFPAY ==
[2024-03-14 11:04] VITALS: BP 141/73; PULSE 58; RESP 18; TEMP 36.6; O2SAT 95; BMI 28.7
[2024-03-14 11:17] VITALS: BP 180/83; PULSE 61; RESP 19; O2SAT 97
--- NOTE | 2024-03-14 11:22 | EXP.PAIN.PRO ---
Procedure Date: 03/14/24 Time: 11:10 Anesthesiologist:: Dmitriy Wetzel CRNA Complications:: None Pre-procedure Diagnosis:: Degenerative disc lumbar spine multilevels. Lumbar radiculopathy. Degenerative disc cervical spine multiple levels. Cervical radiculopathy. Chronic pain syndrome. Post-procedure Diagnosis:: Same. Indications for Procedure:: Patient is a pleasant 73-year-old female comes to clinic today for intrathecal pain pump interrogation refill. She is currently being managed with morphine sulfate 4 mg/mL. Her rate is 0.9359 mg/day. She is doing very well with her current settings. She is not requesting any changes. She is not reporting side effects or complications. Procedure Details:: Details of the procedure explained to the patient. The patient taken procedure room placed in the sitting position. The area over the pump was cleansed using chlorhexidine's cleansing solution. The pump was interrogated. The pump was accessed with ease using a 22-gauge inch and half needle. 6 mL of solution was withdrawn discarded appropriate. The pump was then filled with 20 cc of solution containing morphine sulfate 4 mg/mL. Pump rate will continue at 0.9359 mg/day. Patient tolerated procedure without difficulty. There are no complications. Plan and Disposition:: Patient was discharged without incident.
[2024-03-14 11:27] VITALS: BP 151/66; PULSE 58; RESP 18; O2SAT 97
== END 2024-03-14 11:27 | disposition home or self-care (01) ==
LOC: SC.PAINP 10:23
PROVIDERS: PCP Family Medicine; Visit Provider Nurse Anesthetist, Certified Registered
DX: G89.29 Other chronic pain (principal); M51.36 Other intervertebral disc degeneration, lumbar region; M54.16 Radiculopathy, lumbar region
CPT/HCPCS: 95991

== ENCOUNTER 2024-03-14 12:30 | Outpatient (RCR) | payer MEDICARE, SELFPAY | END 2024-03-14 14:00 | disposition home or self-care (01) | LOC: PT 12:30 | PROVIDERS: Visit Provider Physician Assistant | DX: M17.11 Unilateral primary osteoarthritis, right knee (principal) | CPT/HCPCS: 97760 ==

== ENCOUNTER 2024-05-02 09:55 | Day surgery (SDC) | payer MEDICARE, SELFPAY ==
[2024-05-02 10:17] VITALS: BP 164/71; PULSE 69; RESP 16; TEMP 36.9; O2SAT 93; BMI 28.7
[2024-05-02 10:36] VITALS: BP 126/62; PULSE 68; RESP 18; O2SAT 96
[2024-05-02 10:38] VITALS: BP 126/62; PULSE 68; RESP 18; O2SAT 96
[2024-05-02 10:54] VITALS: BP 160/68; PULSE 66; RESP 18; O2SAT 94
--- NOTE | 2024-05-02 10:57 | EXP.PAIN.PRO ---
Procedure Date: 05/02/24 Time: 10:30 Anesthesiologist:: Dmitriy Wetzel CRNA Complications:: None Pre-procedure Diagnosis:: Degenerative disc cervical spine multilevels. Cervical radiculopathy. Degenerative disc lumbar spine multilevels. Lumbar radiculopathy. Chronic pain syndrome. Post-procedure Diagnosis:: Same. Indications for Procedure:: Patient is a very pleasant 74-year-old female that comes our clinic today for intrathecal pain pump interrogation and refill. Patient is currently being managed with morphine sulfate 4 mg/mL at a rate of 0.9359 mg/day. Patient is reporting some increased low lumbar back pain with activity. She is requesting increase in the pump rate. I think this is reasonable. I will increase her by 10%. She does not report any side effects or complications. Patient is awake alert oriented x 3. In no acute distress. Flexion-extension lumbar spine guarded secondary to pain. Deep tendon reflexes upper lower extremities normal. Motor strength upper and lower extremities normal. There is no gross sensory deficit. Gait is antalgic. Patient requires a wheelchair for transportation from parking lot. Procedure Details:: Details of the procedure explained to the patient. The patient taken procedure room placed in sitting position. The area of the pump was cleaned using chlorhexidine as cleaning solution. The pump was interrogated. The pump was accessed with ease using a 22-gauge inch and half needle. 5.5 mL of solution was withdrawn and discarded appropriate. The pump was then filled with 20 cc of solution containing morphine sulfate 1 mg/mL. The pump rate will increase by 10%. The new rate will be 1.0285 mg/day. Plan and Disposition:: Patient was discharged without incident.
== END 2024-05-02 10:54 | disposition home or self-care (01) ==
PROVIDERS: PCP Family Medicine; Visit Provider Nurse Anesthetist, Certified Registered
DX: Z79.891 Long term (current) use of opiate analgesic (principal); M51.36 Other intervertebral disc degeneration, lumbar region; G89.4 Chronic pain syndrome; M50.30 Other cervical disc degeneration, unspecified cervical region
CPT/HCPCS: 95991

== ENCOUNTER 2024-06-20 09:59 | Day surgery (SDC) | payer MEDICARE, SELFPAY ==
[2024-06-20 10:21] VITALS: BP 146/65; PULSE 70; RESP 16; TEMP 37.2; O2SAT 93; BMI 29.4
[2024-06-20 10:40] VITALS: BP 161/71; PULSE 62; RESP 18; O2SAT 97
[2024-06-20 10:42] VITALS: BP 161/71; PULSE 62; RESP 18; O2SAT 97
[2024-06-20 10:56] VITALS: BP 135/70; PULSE 62; RESP 16; O2SAT 91
--- NOTE | 2024-06-20 11:04 | EXP.PAIN.PRO ---
Procedure Date: 06/20/24 Time: 10:50 Anesthesiologist:: Dmitriy Wetzel CRNA Complications:: None Pre-procedure Diagnosis:: Degenerative disc lumbar spine multilevels. Lumbar radiculopathy. Degenerative disc cervical spine cervical radiculopathy. Chronic pain syndrome. Lumbar postlaminectomy syndrome. Post-procedure Diagnosis:: Same. Indications for Procedure:: Patient is a very pleasant 74-year-old female comes our clinic today for intrathecal pain pump interrogation and refill. Patient is currently being managed with morphine sulfate 4 mg/mL at a rate of 1.0285 mg/day. Patient describing low back pain as constant, dull, aching. Patient also reporting bilateral hip and leg radicular symptoms. She rates her pain 8/10. Patient requesting increase in pump rate. I think this is reasonable. Will give her a 20% increase today. She is not reporting side effects or complications. Patient is awake alert [place] x 3. No acute distress. Flexion-extension lumbar spine somewhat guarded secondary to pain. Deep tendon reflexes upper and lower extremities normal. Motor strength upper and lower extremities normal. There is no gross sensory deficit. Patient requires wheelchair for access to the clinic. Procedure Details:: Details of the procedure explained to the patient. The patient taken procedure and placed in sitting position. The area of the pump was cleansed using chlorhexidine as a cleansing solution. The pump was interrogated. The pump was accessed with ease using a 22-gauge inch and half needle. 5 mL of solution was withdrawn discarded appropriate. The pump was then filled with 20 cc of a solution containing morphine sulfate 4 mg/mL. The pump will be increased by 20%. The new rate will be 1.2329 mg/day. Patient tolerated procedure without difficulty. There are no complications. Plan and Disposition:: Patient was discharged without incident
== END 2024-06-20 10:56 | disposition home or self-care (01) ==
LOC: SC.PAINP 10:04
PROVIDERS: PCP Family Medicine; Visit Provider Nurse Anesthetist, Certified Registered
DX: M51.16 Intervertebral disc disorders with radiculopathy, lumbar region (principal); M50.10 Cervical disc disorder with radiculopathy, unspecified cervical region; G89.4 Chronic pain syndrome; M96.1 Postlaminectomy syndrome, not elsewhere classified
CPT/HCPCS: 62370